=== PATIENT | male | born 1950 | race African-American/Black ===

== ENCOUNTER 2017-06-19 19:39 | Inpatient (IN) | payer OTHER ==
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
[2017-06-19] MEDS ORDERED: MAG HYDROX/AL HYDROX/SIMETH 30 ML UNIT-DOSE CUP PO PRN (20:30)
[2017-06-19] MEDS ORDERED: IBUPROFEN 400 MG TABLET (FP) PO PRN (20:30)
[2017-06-19] MEDS ORDERED: P-EPHED 60MG/TRIPROLIDI 2.5MG TABLET PO PRN (20:30)
[2017-06-19] MEDS ORDERED: chlordiazePOXIDE HCL 25 MG CAPSULE PO PRN (20:30)
[2017-06-19] MEDS ORDERED: ACETAMINOPHEN 325 MG TABLET (FP) PO PRN (20:30)
[2017-06-19] MEDS ORDERED: chlordiazePOXIDE HCL 25 MG CAPSULE PO ONE (20:30)
[2017-06-19] MEDS ORDERED: MAGNESIUM HYDROX 2400MG/30ML ORAL SUSPENSION 30 ML CUP PO PRN (20:30)
[2017-06-19] MEDS ORDERED: MENTHOL/PHENOL 1 EACH UD MM PRN (20:30)
[2017-06-19] MEDS ORDERED: MAGNESIUM CITRATE 300 ML BOTTLE PO PRN (20:30)
[2017-06-19] MEDS ORDERED: guaiFENesin/D-METHORPHAN HB 10 ML UNIT-DOSE CUPS PO PRN (20:30)
[2017-06-19] MEDS ORDERED: LOPERAMIDE HCL 2 MG CAPSULE PO PRN (20:30)
[2017-06-19] MEDS ORDERED: ALBUTEROL SO4 18 GM HFA INHALER IH PRN (20:38)
[2017-06-19] MEDS ORDERED: ALBUTEROL SO4 2.5/IPRATROPIUM 0.5 INH SOL 3 ML VIAL.NEB. NEB PRN (20:38)
[2017-06-19 20:40] VITALS: BMI 20.5
[2017-06-19] MEDS: THIAMINE HCL 100 MG TABLET (FP) PO SCH (23:11)
[2017-06-19] MEDS: chlordiazePOXIDE HCL 25 MG CAPSULE PO SCH (23:12)
[2017-06-20] MEDS: chlordiazePOXIDE HCL 25 MG CAPSULE PO SCH ×4 (05:08→22:13)
[2017-06-20] MEDS: amLODIPine BESYLATE 10 MG TABLET (FP) PO SCH (10:18)
[2017-06-20] MEDS: PRENATAL VITAMINS W/ FOLIC ACID TABLET (FP) PO SCH (10:18)
[2017-06-20] MEDS: NICOTINE 14 MG/24 HOURS TOPICAL PATCH TD SCH (10:18)
[2017-06-20 12:02] LABS: HEMATOCRIT 36.7 % (35.4-49); MCH 32.5 pg (25.7-33.7); MCHC 32.6 g/dl (32.0-35.9); MEAN CELL VOLUME 99.5 fl (80-96); MEAN PLT VOLUME 8.5 fl (7.5-11.1); PLATELET COUNT 156 K/MM3 (134-434); RBC 3.69 M/mm3 (4.00-5.60); RDW 13.9 % (11.9-15.9); WHITE BLOOD COUNT 5.1 K/mm3 (4.0-10.0)
[2017-06-20 12:16] LABS: ALBUMIN 2.8 g/dl (3.4-5.0); ANION GAP 11 (8-16); BLOOD UREA NITROGEN 29 mg/dL (7-18); CALCIUM 8.5 mg/dL (8.5-10.1); CHLORIDE 105 mmol/L (98-107); CO2 27 mmol/L (21-32); GLUCOSE,RANDOM 102 mg/dL (74-106); POTASSIUM 3.8 mmol/L (3.5-5.1); SGOT/AST 88 U/L (15-37); SGPT/ALT 60 U/L (12-78); SODIUM 143 mmol/L (136-145)
[2017-06-20 12:18] LABS: ALK PHOS 123 U/L (45-117); BILIRUBIN,TOTAL 0.6 mg/dL (0.2-1.0); CREATININE 1.4 mg/dL (0.7-1.3); TOT PROT 6.7 g/dl (6.4-8.2)
--- NOTE | 2017-06-20 12:42 | PN ---
[facility] CIWA - CIWA Score Nausea/Vomitin-No Nausea/No Vomiting Muscle Tremors: 4-Moderate,w/Arms Extend Anxiety: 4-Mod. Anxious/Guarded Agitation: 4-Moderately Restless Paroxysmal Sweats: 1-Minimal Palms Moist Orientation: 0-Oriented Tacttile Disturbances: 3-Moderate Itch/Numb/Burn Auditory Disturbances: 0-None Visual Disturbances: 0-None Headache: 0-None Present CIWA-Ar Total Score: 16 BHS Progress Note (SOAP) Subjective: ANXIETY,SWEATS,TREMORS,FATIGUE. Objective: 06/20/17 12:42 Vital Signs Temperature 98.3 F 06/20/17 09:20 Pulse Rate 85 06/20/17 09:20 Respiratory Rate 18 06/20/17 09:20 Blood Pressure 140/85 06/20/17 09:20 O2 Sat by Pulse Oximetry (%) Laboratory Last Values WBC 5.1 K/mm3 (4.0-10.0) D 06/20/17 07:50 RBC 3.69 M/mm3 (4.00-5.60) L 06/20/17 07:50 Hgb 12.0 GM/dL (11.7-16.9) 06/20/17 07:50 Hct 36.7 % (35.4-49) 06/20/17 07:50 MCV 99.5 fl (80-96) H 06/20/17 07:50 MCH 32.5 pg (25.7-33.7) 06/20/17 07:50 MCHC 32.6 g/dl (32.0-35.9) 06/20/17 07:50 RDW 13.9 % (11.9-15.9) 06/20/17 07:50 Plt Count 156 K/MM3 (134-434) D 06/20/17 07:50 MPV 8.5 fl (7.5-11.1) 06/20/17 07:50 Sodium 143 mmol/L (136-145) 06/20/17 07:50 Potassium 3.8 mmol/L (3.5-5.1) 06/20/17 07:50 Chloride 105 mmol/L (98-107) 06/20/17 07:50 Carbon Dioxide 27 mmol/L (21-32) 06/20/17 07:50 Anion Gap 11 (8-16) 06/20/17 07:50 BUN 29 mg/dL (7-18) H D 06/20/17 07:50 Creatinine 1.4 mg/dL (0.7-1.3) H D 06/20/17 07:50 Creat Clearance w eGFR 50.70 (>60) 06/20/17 07:50 Random Glucose 102 mg/dL (74-106) 06/20/17 07:50 Calcium 8.5 mg/dL (8.5-10.1) 06/20/17 07:50 Total Bilirubin 0.6 mg/dL (0.2-1.0) 06/20/17 07:50 AST 88 U/L (15-37) H D 06/20/17 07:50 ALT 60 U/L (12-78) D 06/20/17 07:50 Alkaline Phosphatase 123 U/L (45-117) H 06/20/17 07:50 Total Protein 6.7 g/dl (6.4-8.2) 06/20/17 07:50 Albumin 2.8 g/dl (3.4-5.0) L 06/20/17 07:50 Assessment: 06/20/17 12:42 WITHDRAWAL SX Plan: CONTINUE DETOX
--- NOTE | 2017-06-20 14:17 | EKG ---
Test Reason : Blood Pressure : / mmHG Vent. Rate : 098 BPM Atrial Rate : 098 BPM P-R Int : 108 ms QRS Dur : 084 ms QT Int : 390 ms P-R-T Axes : 059 007 092 degrees QTc Int : 497 ms SINUS RHYTHM WITH SHORT TX POSSIBLE LEFT ATRIAL ENLARGEMENT ABNORMAL QRS-T ANGLE, CONSIDER PRIMARY T WAVE ABNORMALITY PROLONGED QT ABNORMAL ECG NO PREVIOUS ECGS AVAILABLE CLINICAL CORRELATION IS RECOMMENDED Confirmed by DIPTI GARRETT, JOHAN ([id number]) on 06/20/2017 2:16:39 PM Referred By: Confirmed By:JOHAN RESENDEZ MD
--- NOTE | 2017-06-20 14:38 | CONSULT ---
[facility] Psychiatric Consult - Data Date of interview: 06/20/17 Admission source: [facility] Identifying data: Pt. is a 67 year old male, single, father of two, homeless and on SSI. This is patient's one of multiple admission to [facility]. Pt. admitted to for alcohol and heroin dependence. Substance Abuse History: Following information confirmed with Mr. Wood: - Smoking Cessation. Smoking history: Current every day smoker. Have you smoked in the past 12 months: Yes. Aproximately how many cigarettes per day: 4. Cigars Per Day: 0. Hx Chewing Tobacco Use: No. Initiated information on smoking cessation: Yes. 'Breaking Loose' booklet given: 06/19/17. - Substance & Tx. History. Hx Alcohol Use: Yes. Hx Substance Use: Yes. Substance Use Type : Alcohol, Cocaine. Hx Substance Use Treatment: Yes. - Substances Abused. Alcohol. Route: Oral. Frequency: Daily. Amount used: BEER 4 CANS/D. Age of first use: 16. Date of Last Use: 06/19/17. Cocaine. Route: Inhalation. Frequency: 3-6 times per week. Amount used: $20/EACH TIME. Age of first use: 17. Date of Last Use: 06/18/17 Medical History: Asthma, Hypertension, seizures (etoh related, had a seizure last year), Hep C, hx of chlamydia Psychiatric History: Pt. reports one psychiatric hospitalization at the age of 15-16 in [place] due to behavioral issues. States he was once diagnosed with schizophrenia but does not take psychiatric medications. Pt. reports 10+ years of incarceration for "peralta shit." Pt. denies a h/o suicide attempt. Physical/Sexual Abuse/Trauma History: Denies. Mental Status Exam - Mental Status Exam Alert and Oriented to: Time, Place, Person Cognitive Function: Good Patient Appearance: Unkempt Mood: Euthymic Affect: Mood Congruent Patient Behavior: Fatigued, Talkative, Cooperative Speech Pattern: Tangential Voice Loudness: Normal Thought Process: Goal Oriented Thought Disorder: Not Present Hallucinations: Denies Suicidal Ideation: Denies Homicidal Ideation: Denies Insight/Judgement: Poor Sleep: Fair Appetite: Poor Muscle strength/Tone: Normal Gait/Station: Other (Patient laying in bed throughout interview and therefore was not able to observe patient's gait.) Psychiatric Findings - Problem List ([place] 1, 2,3) (1) Alcohol dependence with uncomplicated withdrawal Current Visit: Yes Status: Acute (2) Cocaine dependence Current Visit: Yes Status: Acute Qualifiers: Complication of substance-induced condition: uncomplicated (3) Nicotine dependence Current Visit: Yes Status: Acute Qualifiers: Nicotine product type: cigarettes Substance use status: in withdrawal Qualified Code(s): F17.213 - Nicotine dependence, cigarettes, with withdrawal (4) Schizophrenia Current Visit: No Status: Suspected Comment: Self reports. - Initial Treatment Plan Initial Treatment Plan: Psychoeducation provided. Detoxification in progress. Pt. requesting trazodone for sleep but at this time trazodone will not be ordered due to prolong qtc of 497. Will continue to monitor.
[2017-06-20] MEDS: THIAMINE HCL 100 MG TABLET (FP) PO SCH (22:13)
[2017-06-20] MEDS: hydrOXYzine PAMOATE 25 MG CAPSULE (FP) PO PRN (22:14)
[2017-06-21] MEDS: chlordiazePOXIDE HCL 25 MG CAPSULE PO SCH ×3 (05:10→17:34)
[2017-06-21] MEDS: PRENATAL VITAMINS W/ FOLIC ACID TABLET (FP) PO SCH (10:07)
[2017-06-21] MEDS: amLODIPine BESYLATE 10 MG TABLET (FP) PO SCH (10:07)
[2017-06-21] MEDS: NICOTINE 14 MG/24 HOURS TOPICAL PATCH TD SCH (10:08)
--- NOTE | 2017-06-21 10:56 | PN ---
[facility] CIWA - CIWA Score Nausea/Vomitin-No Nausea/No Vomiting Muscle Tremors: 4-Moderate,w/Arms Extend Anxiety: 3 Agitation: 3 Paroxysmal Sweats: 3 Orientation: 0-Oriented Tacttile Disturbances: 2-Mild Itch/Numbness/Burn Auditory Disturbances: 1-Very Mild Visual Disturbances: 0-None Headache: 0-None Present CIWA-Ar Total Score: 16 S Progress Note (SOAP) Subjective: Constipation, Tremors, Fatigue, Sweating. Objective: PT. A & O X 3. NO ACUTE DISTRESS. 06/21/17 10:53 Vital Signs Temperature 98.2 F 06/21/17 09:40 Pulse Rate 103 H 06/21/17 09:40 Respiratory Rate 18 06/21/17 09:40 Blood Pressure 125/77 06/21/17 09:40 O2 Sat by Pulse Oximetry (%) Laboratory Tests 06/20/17 06/20/17 06/20/17 07:50 07:50 07:50 WBC 5.1 D RBC 3.69 L Hgb 12.0 Hct 36.7 MCV 99.5 H MCH 32.5 MCHC 32.6 RDW 13.9 Plt Count 156 D MPV 8.5 Sodium 143 Potassium 3.8 Chloride 105 Carbon Dioxide 27 Anion Gap 11 BUN 29 H D Creatinine 1.4 H D Creat Clearance w eGFR 50.70 Random Glucose 102 Calcium 8.5 Total Bilirubin 0.6 AST 88 H D ALT 60 D Alkaline Phosphatase 123 H Total Protein 6.7 Albumin 2.8 L RPR Titer Nonreactive LABS NOTED. Assessment: 06/21/17 10:53 WITHDRAWAL SYMPTOMS. Plan: CONTINUE DETOX. D/C MAGNESIUM-CONTAINING MEDS. AND IBUPROFEN. INCREASE DAILY PO FLUID INTAKE. BMP TOMORROW AM FOR ABNORMAL ADMISSION RENAL LAB VALUES.
[2017-06-21] MEDS: THIAMINE HCL 100 MG TABLET (FP) PO SCH (22:13)
[2017-06-21] MEDS: chlordiazePOXIDE 5 MG CAPSULE PO SCH (22:13)
[2017-06-21] MEDS: hydrOXYzine PAMOATE 25 MG CAPSULE (FP) PO PRN (22:13)
[2017-06-21] MEDS ORDERED: MAG HYDROX/AL HYDROX/SIMETH 30 ML UNIT-DOSE CUP PO ONE (23:30)
[2017-06-22] MEDS: chlordiazePOXIDE 5 MG CAPSULE PO SCH ×3 (06:02→17:19)
[2017-06-22 09:55] LABS: CHLORIDE 104 mmol/L (98-107); POTASSIUM 3.4 mmol/L (3.5-5.1); SODIUM 141 mmol/L (136-145)
[2017-06-22] MEDS: PRENATAL VITAMINS W/ FOLIC ACID TABLET (FP) PO SCH (10:12)
[2017-06-22] MEDS: NICOTINE 14 MG/24 HOURS TOPICAL PATCH TD SCH (10:14)
[2017-06-22] MEDS: amLODIPine BESYLATE 10 MG TABLET (FP) PO SCH (10:14)
[2017-06-22] MEDS ORDERED: TRIMETHOBENZAMIDE HCL 200MG/2ML INJ IM PRN (10:15)
[2017-06-22 10:16] LABS: ANION GAP 8 (8-16); BLOOD UREA NITROGEN 17 mg/dL (7-18); CALCIUM 8.8 mg/dL (8.5-10.1); CO2 29 mmol/L (21-32); CREATININE 0.6 mg/dL (0.7-1.3); GLUCOSE,RANDOM 97 mg/dL (74-106)
[2017-06-22] MEDS ORDERED: POTASSIUM CHLORIDE TABS 20 MEQ TABLET.ER (FP) PO ONE (11:42)
--- NOTE | 2017-06-22 11:44 | PN ---
S Progress Note (SOAP) Subjective: Nausea, Stomach Cramping, Fatigue, Sweating, Constipation. Objective: PT. A & O X 2 (UNCERTAIN ABOUT CURRENT DAY / DATE). PT. OBSERVED AMBULATING ON UNIT. NO ACUTE DISTRESS. 06/22/17 11:40 Vital Signs Temperature 97.2 F L 06/22/17 09:05 Pulse Rate 96 H 06/22/17 09:05 Respiratory Rate 20 06/22/17 09:05 Blood Pressure 117/75 06/22/17 09:05 O2 Sat by Pulse Oximetry (%) Laboratory Tests 06/20/17 06/20/17 06/20/17 07:50 07:50 07:50 WBC 5.1 D RBC 3.69 L Hgb 12.0 Hct 36.7 MCV 99.5 H MCH 32.5 MCHC 32.6 RDW 13.9 Plt Count 156 D MPV 8.5 Sodium 143 Potassium 3.8 Chloride 105 Carbon Dioxide 27 Anion Gap 11 BUN 29 H D Creatinine 1.4 H D Creat Clearance w eGFR 50.70 Random Glucose 102 Calcium 8.5 Total Bilirubin 0.6 AST 88 H D ALT 60 D Alkaline Phosphatase 123 H Total Protein 6.7 Albumin 2.8 L RPR Titer Nonreactive HIV 1&2 Antibody Screen HIV P24 Antigen 06/21/17 06/22/17 06:00 07:30 WBC RBC Hgb Hct MCV MCH MCHC RDW Plt Count MPV Sodium 141 Potassium 3.4 L Chloride 104 Carbon Dioxide 29 Anion Gap 8 BUN 17 D Creatinine 0.6 L D Creat Clearance w eGFR Random Glucose 97 Calcium 8.8 Total Bilirubin AST ALT Alkaline Phosphatase Total Protein Albumin RPR Titer HIV 1&2 Antibody Screen Negative HIV P24 Antigen Negative LABS NOTED. RESULTS OF BMP NOTED. 06/22/17 11:44 Assessment: 06/22/17 11:41 WITHDRAWAL SYMPTOMS. Plan: CONTINUE DETOX. K, 20 MEQ PO X 1 NOW, THEN 20 MEW PO BID AFTER. INCREASE DAILY PO FLUID INTAKE.
[2017-06-22] MEDS: POTASSIUM CHLORIDE TABS 20 MEQ TABLET.ER (FP) PO SCH (17:21)
[2017-06-22 19:01] LABS: URINE APPEARANCE CLEAR; URINE BILIRUBIN NEGATIVE (NEGATIVE); URINE BLOOD NEGATIVE (NEGATIVE); URINE COLOR YELLOW; URINE GLUCOSE (UA) 1+ (NEGATIVE); URINE KETONE NEGATIVE (NEGATIVE); URINE LEUK ESTERASE NEGATIVE (NEGATIVE); URINE NITRITE NEGATIVE (NEGATIVE); URINE PROTEIN NEGATIVE (NEGATIVE); URINE UROBILINOGEN 4.0 E.U/dl mg/dL (0.2-1.0)
[2017-06-22] MEDS: chlordiazePOXIDE HCL 10 MG CAPSULE PO SCH (22:07)
[2017-06-22] MEDS: THIAMINE HCL 100 MG TABLET (FP) PO SCH (22:07)
[2017-06-22] MEDS: hydrOXYzine PAMOATE 25 MG CAPSULE (FP) PO PRN (22:09)
[2017-06-23] MEDS: chlordiazePOXIDE HCL 10 MG CAPSULE PO SCH ×3 (05:11→17:31)
[2017-06-23] MEDS: POTASSIUM CHLORIDE TABS 20 MEQ TABLET.ER (FP) PO SCH ×2 (10:18→17:31)
[2017-06-23] MEDS: PRENATAL VITAMINS W/ FOLIC ACID TABLET (FP) PO SCH (10:19)
[2017-06-23] MEDS: NICOTINE 14 MG/24 HOURS TOPICAL PATCH TD SCH (10:19)
[2017-06-23] MEDS: amLODIPine BESYLATE 10 MG TABLET (FP) PO SCH (10:19)
--- NOTE | 2017-06-23 12:03 | PN ---
BHS Progress Note (SOAP) Subjective: Fatigue, Sweating. Objective: PT. A & O X 2 (UNCERTAIN ABOUT CURRENT DAY/ DATE). NO ACUTE DISTRESS. 06/23/17 12:00 Vital Signs Temperature 97.0 F L 06/23/17 08:47 Pulse Rate 98 H 06/23/17 08:47 Respiratory Rate 19 06/23/17 08:47 Blood Pressure 113/81 06/23/17 08:47 O2 Sat by Pulse Oximetry (%) Laboratory Tests 06/20/17 06/20/17 06/20/17 07:50 07:50 07:50 WBC 5.1 D RBC 3.69 L Hgb 12.0 Hct 36.7 MCV 99.5 H MCH 32.5 MCHC 32.6 RDW 13.9 Plt Count 156 D MPV 8.5 Sodium 143 Potassium 3.8 Chloride 105 Carbon Dioxide 27 Anion Gap 11 BUN 29 H D Creatinine 1.4 H D Creat Clearance w eGFR 50.70 Random Glucose 102 Calcium 8.5 Total Bilirubin 0.6 AST 88 H D ALT 60 D Alkaline Phosphatase 123 H Total Protein 6.7 Albumin 2.8 L Urine Color Urine Appearance Urine pH Ur Specific [place] Urine Protein Urine Glucose (UA) Urine Ketones Urine Blood Urine Nitrite Urine Bilirubin Urine Urobilinogen Ur Leukocyte Esterase RPR Titer Nonreactive HIV 1&2 Antibody Screen HIV P24 Antigen 06/21/17 06/22/17 06/22/17 06:00 07:30 15:54 WBC RBC Hgb Hct MCV MCH MCHC RDW Plt Count MPV Sodium 141 Potassium 3.4 L Chloride 104 Carbon Dioxide 29 Anion Gap 8 BUN 17 D Creatinine 0.6 L D Creat Clearance w eGFR Random Glucose 97 Calcium 8.8 Total Bilirubin AST ALT Alkaline Phosphatase Total Protein Albumin Urine Color Yellow Urine Appearance Clear Urine pH 7.0 Ur Specific [place] 1.016 Urine Protein Negative Urine Glucose (UA) 1+ H Urine Ketones Negative Urine Blood Negative Urine Nitrite Negative Urine Bilirubin Negative Urine Urobilinogen 4.0 e.u/dl Ur Leukocyte Esterase Negative RPR Titer HIV 1&2 Antibody Screen Negative HIV P24 Antigen Negative LABS NOTED. Assessment: 06/23/17 12:01 WITHDRAWAL SYMPTOMS. Plan: CONTINUE DETOX. DUE TO SEVERELY INCLEMENT WEATHER OUTSIDE, PATIENT TO REMAIN ON UNIT WHILE AFTERCARE PLANS ARE DETERMINED UNTIL TOMORROW.
[2017-06-23] MEDS: THIAMINE HCL 100 MG TABLET (FP) PO SCH (22:09)
[2017-06-23] MEDS: hydrOXYzine PAMOATE 25 MG CAPSULE (FP) PO PRN (22:10)
[2017-06-24] MEDS: NICOTINE 14 MG/24 HOURS TOPICAL PATCH TD SCH (09:16)
[2017-06-24] MEDS: PRENATAL VITAMINS W/ FOLIC ACID TABLET (FP) PO SCH (09:16)
[2017-06-24] MEDS: amLODIPine BESYLATE 10 MG TABLET (FP) PO SCH (09:16)
[2017-06-24] MEDS: POTASSIUM CHLORIDE TABS 20 MEQ TABLET.ER (FP) PO SCH (09:17)
[2017-06-24 09:18] VITALS: BP 128/71; PULSE 100; TEMP 97.4
[2017-06-24] MEDS ORDERED: MAG HYDROX/AL HYDROX/SIMETH 30 ML UNIT-DOSE CUP PO ONE (09:31)
--- NOTE | 2017-06-24 10:48 | DS ---
[facility] Detox Discharge Summary Admission Date: 06/19/17 - History Present History: Alcohol Dependence Additional Comments: DETOX COMPLETED. PT HAS A PMD LOCATED ON [place], [place].. DOES NOT REMEMBER HER NAME. WILL FOLLOW UP WITH MEDICAL MANAGEMENT WITH PMD NEEDED. Pertinent Past History: SEE DX BELOW - Physical Exam Results Vital Signs: Vital Signs Temperature 97.4 F L 06/24/17 09:18 Pulse Rate 100 H 06/24/17 09:18 Respiratory Rate 20 06/24/17 09:18 Blood Pressure 128/71 06/24/17 09:18 O2 Sat by Pulse Oximetry (%) Pertinent Admission Physical Exam Findings: WITHDRAWAL SX Laboratory Last Values WBC 5.1 K/mm3 (4.0-10.0) D 06/20/17 07:50 RBC 3.69 M/mm3 (4.00-5.60) L 06/20/17 07:50 Hgb 12.0 GM/dL (11.7-16.9) 06/20/17 07:50 Hct 36.7 % (35.4-49) 06/20/17 07:50 MCV 99.5 fl (80-96) H 06/20/17 07:50 MCH 32.5 pg (25.7-33.7) 06/20/17 07:50 MCHC 32.6 g/dl (32.0-35.9) 06/20/17 07:50 RDW 13.9 % (11.9-15.9) 06/20/17 07:50 Plt Count 156 K/MM3 (134-434) D 06/20/17 07:50 MPV 8.5 fl (7.5-11.1) 06/20/17 07:50 Sodium 141 mmol/L (136-145) 06/22/17 07:30 Potassium 3.4 mmol/L (3.5-5.1) L 06/22/17 07:30 Chloride 104 mmol/L (98-107) 06/22/17 07:30 Carbon Dioxide 29 mmol/L (21-32) 06/22/17 07:30 Anion Gap 8 (8-16) 06/22/17 07:30 BUN 17 mg/dL (7-18) D 06/22/17 07:30 Creatinine 0.6 mg/dL (0.7-1.3) L D 06/22/17 07:30 Creat Clearance w eGFR 50.70 (>60) 06/20/17 07:50 Random Glucose 97 mg/dL (74-106) 06/22/17 07:30 Calcium 8.8 mg/dL (8.5-10.1) 06/22/17 07:30 Total Bilirubin 0.6 mg/dL (0.2-1.0) 06/20/17 07:50 AST 88 U/L (15-37) H D 06/20/17 07:50 ALT 60 U/L (12-78) D 06/20/17 07:50 Alkaline Phosphatase 123 U/L (45-117) H 06/20/17 07:50 Total Protein 6.7 g/dl (6.4-8.2) 06/20/17 07:50 Albumin 2.8 g/dl (3.4-5.0) L 06/20/17 07:50 Urine Color Yellow 06/22/17 15:54 Urine Appearance Clear 06/22/17 15:54 Urine pH 7.0 (5.0-8.0) 06/22/17 15:54 Ur Specific [place] 1.016 (1.001-1.035) 06/22/17 15:54 Urine Protein Negative (NEGATIVE) 06/22/17 15:54 Urine Glucose (UA) 1+ (NEGATIVE) H 06/22/17 15:54 Urine Ketones Negative (NEGATIVE) 06/22/17 15:54 Urine Blood Negative (NEGATIVE) 06/22/17 15:54 Urine Nitrite Negative (NEGATIVE) 06/22/17 15:54 Urine Bilirubin Negative (NEGATIVE) 06/22/17 15:54 Urine Urobilinogen 4.0 e.u/dl mg/dL (0.2-1.0) 06/22/17 15:54 Ur Leukocyte Esterase Negative (NEGATIVE) 06/22/17 15:54 RPR Titer Nonreactive (NONREACTIVE) 06/20/17 07:50 HIV 1&2 Antibody Screen Negative 06/21/17 06:00 HIV P24 Antigen Negative 06/21/17 06:00 - Treatment Hospital Course: Detox Protocol Followed, Detoxed Safely, Responded well, Discharged Condition Good - Medication Discharge Medications: Ambulatory Orders Budesonide/Formeterol Fumarate [SYMBICORT 80/4.5mcg -] 2 inh IH BID #1 inhaler 07/26/16 Trazodone HCl [Desyrel -] 100 mg PO HS #30 tablet 07/26/16 Albuterol Sulfate Inhaler - [Ventolin HFA Inhaler -] 2 inh IH Q4H PRN #1 inhaler 06/23/17 Amlodipine Besylate [Norvasc -] 2.5 mg PO DAILY #30 tablet 06/23/17 - Diagnosis (1) Asthma Current Visit: Yes Status: Chronic Qualifiers: Asthma severity: mild Asthma persistence: intermittent Asthma complication type: unspecified Qualified Code(s): J45.20 - Mild intermittent asthma, uncomplicated (2) Alcohol dependence with uncomplicated withdrawal Current Visit: Yes Status: Acute (3) Cocaine dependence Current Visit: Yes Status: Acute Qualifiers: Substance use status: uncomplicated Qualified Code(s): F14.20 - Cocaine dependence, uncomplicated (4) Essential hypertension Current Visit: Yes Status: Chronic (5) Nicotine dependence Current Visit: Yes Status: Acute Qualifiers: Nicotine product type: cigarettes Substance use status: in withdrawal Qualified Code(s): F17.213 - Nicotine dependence, cigarettes, with withdrawal (6) Status post right hip replacement Current Visit: Yes Status: Chronic (7) Weight loss Current Visit: Yes Status: Acute (8) Seizure Current Visit: Yes Status: Suspected (9) History of hepatitis C Current Visit: Yes Status: Chronic - AMA Did Patient Leave Against Medical Advice: No
== END 2017-06-24 11:42 | disposition home or self-care (01) | DRG 897 ==
LOC: YASAS 19:39 → Y3N 20:24
PROVIDERS: ADMIT Internal Medicine; ATTEND Internal Medicine
PROC: HZ2ZZZZ Detoxification Services for Substance Abuse Treatment (ICD-10-PCS; principal; 2017-06-19)
DX: F10.230 Alcohol dependence with withdrawal, uncomplicated (principal); F14.20 Cocaine dependence, uncomplicated; F17.213 Nicotine dependence, cigarettes, with withdrawal; F20.9 Schizophrenia, unspecified; I10 Essential (primary) hypertension; J45.20 Mild intermittent asthma, uncomplicated; B18.2 Chronic viral hepatitis C; R63.4 Abnormal weight loss; Z68.20 Body mass index [BMI] 20.0-20.9, adult; Z86.69 Personal history of other diseases of the nervous system and sense organs; Z87.438 Personal history of other diseases of male genital organs; Z96.641 Presence of right artificial hip joint
CPT/HCPCS: 36415; 80048; 80053; 81003; 85027; 86593; 87389; 93005; 93010

== ENCOUNTER 2017-07-17 11:43 | Inpatient (IN) | payer OTHER ==
[2017-07-17 12:41] VITALS: BMI 20.7
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
[2017-07-17] MEDS ORDERED: P-EPHED 60MG/TRIPROLIDI 2.5MG TABLET PO PRN (13:24)
[2017-07-17] MEDS ORDERED: IBUPROFEN 400 MG TABLET (FP) PO PRN (13:24)
[2017-07-17] MEDS ORDERED: chlordiazePOXIDE HCL 25 MG CAPSULE PO ONE (13:24)
[2017-07-17] MEDS ORDERED: ACETAMINOPHEN 325 MG TABLET (FP) PO PRN (13:24)
[2017-07-17] MEDS ORDERED: guaiFENesin/D-METHORPHAN HB 10 ML UNIT-DOSE CUPS PO PRN (13:24)
[2017-07-17] MEDS ORDERED: MAGNESIUM HYDROX 2400MG/30ML ORAL SUSPENSION 30 ML CUP PO PRN (13:24)
[2017-07-17] MEDS ORDERED: MAGNESIUM CITRATE 300 ML BOTTLE PO PRN (13:24)
[2017-07-17] MEDS ORDERED: chlordiazePOXIDE HCL 25 MG CAPSULE PO PRN (13:24)
[2017-07-17] MEDS ORDERED: LOPERAMIDE HCL 2 MG CAPSULE PO PRN (13:24)
[2017-07-17] MEDS ORDERED: MENTHOL/PHENOL 1 EACH UD MM PRN (13:24)
[2017-07-17] MEDS ORDERED: NICOTINE POLACRILEX 2 MG GUM BUC PRN (13:24)
[2017-07-17] MEDS ORDERED: MAG HYDROX/AL HYDROX/SIMETH 30 ML UNIT-DOSE CUP PO PRN (13:24)
[2017-07-17] MEDS ORDERED: ALBUTEROL SO4 18 GM HFA INHALER IH PRN (13:27)
[2017-07-17] MEDS: amLODIPine BESYLATE 2.5 MG TABLET (FP) PO SCH (14:34)
[2017-07-17] MEDS: BUDESONIDE/FORMETEROL FUMARATE 80/4.5 mcg INHALER IH SCH ×2 (14:34→22:13)
[2017-07-17] MEDS: NICOTINE 14 MG/24 HOURS TOPICAL PATCH TD SCH (14:34)
[2017-07-17] MEDS: chlordiazePOXIDE HCL 25 MG CAPSULE PO SCH ×2 (17:34→22:12)
[2017-07-17] MEDS: THIAMINE HCL 100 MG TABLET (FP) PO SCH (22:12)
[2017-07-17 22:31] LABS: URINE APPEARANCE CLEAR; URINE BILIRUBIN NEGATIVE (NEGATIVE); URINE BLOOD NEGATIVE (NEGATIVE); URINE COLOR YELLOW; URINE GLUCOSE (UA) NEGATIVE (NEGATIVE); URINE KETONE NEGATIVE (NEGATIVE); URINE LEUK ESTERASE NEGATIVE (NEGATIVE); URINE NITRITE NEGATIVE (NEGATIVE); URINE PROTEIN NEGATIVE (NEGATIVE); URINE UROBILINOGEN 4.0 E.U/dl mg/dL (0.2-1.0)
[2017-07-18] MEDS: chlordiazePOXIDE HCL 25 MG CAPSULE PO SCH ×4 (05:33→22:23)
[2017-07-18] MEDS: PRENATAL VITAMINS W/ FOLIC ACID TABLET (FP) PO SCH (10:03)
[2017-07-18] MEDS: BUDESONIDE/FORMETEROL FUMARATE 80/4.5 mcg INHALER IH SCH ×2 (10:04→22:23)
[2017-07-18] MEDS: NICOTINE 14 MG/24 HOURS TOPICAL PATCH TD SCH (10:04)
[2017-07-18 10:09] LABS: HEMATOCRIT 38.4 % (35.4-49); HEMOGLOBIN 12.5 GM/dL (11.7-16.9); MCH 32.3 pg (25.7-33.7); MCHC 32.7 g/dl (32.0-35.9); MEAN CELL VOLUME 98.8 fl (80-96); MEAN PLT VOLUME 8.1 fl (7.5-11.1); PLATELET COUNT 173 K/MM3 (134-434); RBC 3.88 M/mm3 (4.00-5.60); RDW 14.9 % (11.9-15.9)
[2017-07-18 10:41] LABS: CHLORIDE 104 mmol/L (98-107); POTASSIUM 3.5 mmol/L (3.5-5.1); SODIUM 140 mmol/L (136-145)
[2017-07-18] MEDS: AMMONIUM LACTATE 12% LOTION 225 GM BOTTLE TP SCH ×2 (11:00→22:23)
[2017-07-18] MEDS: amLODIPine BESYLATE 2.5 MG TABLET (FP) PO SCH (11:01)
[2017-07-18 11:03] LABS: ALBUMIN 2.6 g/dl (3.4-5.0); ALK PHOS 125 U/L (45-117); ANION GAP 8 (8-16); BILIRUBIN,TOTAL 0.7 mg/dL (0.2-1.0); BLOOD UREA NITROGEN 14 mg/dL (7-18); CALCIUM 7.8 mg/dL (8.5-10.1); CO2 28 mmol/L (21-32); CREATININE 0.8 mg/dL (0.7-1.3); GLUCOSE,RANDOM 151 mg/dL (74-106); SGOT/AST 75 U/L (15-37); SGPT/ALT 52 U/L (12-78); TOT PROT 6.7 g/dl (6.4-8.2)
--- NOTE | 2017-07-18 11:56 | PN ---
[facility] CIWA - CIWA Score Nausea/Vomitin-No Nausea/No Vomiting Muscle Tremors: 3 Anxiety: 4-Mod. Anxious/Guarded Agitation: 2 Paroxysmal Sweats: 3 Orientation: 0-Oriented Tacttile Disturbances: 2-Mild Itch/Numbness/Burn Auditory Disturbances: 2-Mild Harshness/Frighten Visual Disturbances: 2-Mild Sensitivity Headache: 0-None Present CIWA-Ar Total Score: 18 S Progress Note (SOAP) Subjective: Fatigue, Tremors, Sweating. Objective: PT. A & O X 3, OBSERVED AMBULATING ON UNIT. NO ACUTE DISTRESS. 07/18/17 11:52 Vital Signs Temperature 97.1 F L 07/18/17 09:26 Pulse Rate 95 H 07/18/17 09:26 Respiratory Rate 20 07/18/17 09:26 Blood Pressure 130/91 07/18/17 09:26 O2 Sat by Pulse Oximetry (%) Laboratory Tests 07/17/17 07/18/17 07/18/17 15:18 07:30 07:30 WBC 5.0 RBC 3.88 L Hgb 12.5 Hct 38.4 MCV 98.8 H MCH 32.3 MCHC 32.7 RDW 14.9 Plt Count 173 MPV 8.1 Sodium 140 Potassium 3.5 Chloride 104 Carbon Dioxide 28 Anion Gap 8 BUN 14 Creatinine 0.8 D Creat Clearance w eGFR > 60 Random Glucose 151 H D Calcium 7.8 L Total Bilirubin 0.7 AST 75 H ALT 52 Alkaline Phosphatase 125 H Total Protein 6.7 Albumin 2.6 L Urine Color Yellow Urine Appearance Clear Urine pH 6.0 Ur Specific [place] 1.011 Urine Protein Negative Urine Glucose (UA) Negative Urine Ketones Negative Urine Blood Negative Urine Nitrite Negative Urine Bilirubin Negative Urine Urobilinogen 4.0 e.u/dl Ur Leukocyte Esterase Negative RPR Titer 07/18/17 07:30 WBC RBC Hgb Hct MCV MCH MCHC RDW Plt Count MPV Sodium Potassium Chloride Carbon Dioxide Anion Gap BUN Creatinine Creat Clearance w eGFR Random Glucose Calcium Total Bilirubin AST ALT Alkaline Phosphatase Total Protein Albumin Urine Color Urine Appearance Urine pH Ur Specific [place] Urine Protein Urine Glucose (UA) Urine Ketones Urine Blood Urine Nitrite Urine Bilirubin Urine Urobilinogen Ur Leukocyte Esterase RPR Titer Nonreactive LABS NOTED. Assessment: 07/18/17 11:53 WITHDRAWAL SYMPTOMS. Plan: CONTINUE DETOX. BGM ACBK FOR ELEVATED ADMISSION RANDOM GLUCOSE LEVEL. INCREASE DAILY PO FLUID INTAKE.
--- NOTE | 2017-07-18 13:10 | EKG ---
Test Reason : Blood Pressure : / mmHG Vent. Rate : 088 BPM Atrial Rate : 088 BPM P-R Int : 106 ms QRS Dur : 092 ms QT Int : 380 ms P-R-T Axes : 057 018 031 degrees QTc Int : 459 ms SINUS RHYTHM WITH SHORT [place] OTHERWISE NORMAL ECG WHEN COMPARED WITH ECG OF 19-JUN-2017 23:00, T WAVE VARIATION Confirmed by DEION BAEZ MD ([id number]) on 07/18/2017 1:09:50 PM Referred By: oGrdon Mehta Confirmed By:DEION BAEZ MD
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
[2017-07-18] MEDS: THIAMINE HCL 100 MG TABLET (FP) PO SCH (22:24)
[2017-07-19] MEDS: chlordiazePOXIDE HCL 25 MG CAPSULE PO SCH ×2 (05:05→10:03)
[2017-07-19] MEDS: amLODIPine BESYLATE 2.5 MG TABLET (FP) PO SCH (10:02)
[2017-07-19] MEDS: PRENATAL VITAMINS W/ FOLIC ACID TABLET (FP) PO SCH (10:02)
[2017-07-19] MEDS: AMMONIUM LACTATE 12% LOTION 225 GM BOTTLE TP SCH ×2 (10:02→22:24)
[2017-07-19] MEDS: NICOTINE 14 MG/24 HOURS TOPICAL PATCH TD SCH (10:02)
[2017-07-19] MEDS: BUDESONIDE/FORMETEROL FUMARATE 80/4.5 mcg INHALER IH SCH ×2 (10:03→22:24)
--- NOTE | 2017-07-19 12:12 | PN ---
[facility] CIWA - CIWA Score Nausea/Vomitin-No Nausea/No Vomiting Muscle Tremors: None Anxiety: 4-Mod. Anxious/Guarded Agitation: 4-Moderately Restless Paroxysmal Sweats: No Perspiration Orientation: 0-Oriented Tacttile Disturbances: 2-Mild Itch/Numbness/Burn Auditory Disturbances: 1-Very Mild Visual Disturbances: 3-Moderate Sensitivity Headache: 0-None Present CIWA-Ar Total Score: 14 [facility] Progress Note (SOAP) Subjective: Anxious, Stomach Cramping, Fatigue, Constipation. Objective: PT. A & O X 3, OBSERVED AMBULATING ON UNIT. NO ACUTE DISTRESS. PT. DENIES CHEST PAIN. 07/19/17 12:11 Vital Signs Temperature 96.3 F L 07/19/17 09:15 Pulse Rate 92 H 07/19/17 09:15 Respiratory Rate 18 07/19/17 09:15 Blood Pressure 140/88 07/19/17 09:15 O2 Sat by Pulse Oximetry (%) Laboratory Tests 07/17/17 07/18/17 07/18/17 15:18 07:30 07:30 WBC 5.0 RBC 3.88 L Hgb 12.5 Hct 38.4 MCV 98.8 H MCH 32.3 MCHC 32.7 RDW 14.9 Plt Count 173 MPV 8.1 Sodium 140 Potassium 3.5 Chloride 104 Carbon Dioxide 28 Anion Gap 8 BUN 14 Creatinine 0.8 D Creat Clearance w eGFR > 60 POC Glucometer Random Glucose 151 H D Calcium 7.8 L Total Bilirubin 0.7 AST 75 H ALT 52 Alkaline Phosphatase 125 H Total Protein 6.7 Albumin 2.6 L Urine Color Yellow Urine Appearance Clear Urine pH 6.0 Ur Specific [place] 1.011 Urine Protein Negative Urine Glucose (UA) Negative Urine Ketones Negative Urine Blood Negative Urine Nitrite Negative Urine Bilirubin Negative Urine Urobilinogen 4.0 e.u/dl Ur Leukocyte Esterase Negative RPR Titer 07/18/17 07/19/17 07:30 05:04 WBC RBC Hgb Hct MCV MCH MCHC RDW Plt Count MPV Sodium Potassium Chloride Carbon Dioxide Anion Gap BUN Creatinine Creat Clearance w eGFR POC Glucometer 127 Random Glucose Calcium Total Bilirubin AST ALT Alkaline Phosphatase Total Protein Albumin Urine Color Urine Appearance Urine pH Ur Specific [place] Urine Protein Urine Glucose (UA) Urine Ketones Urine Blood Urine Nitrite Urine Bilirubin Urine Urobilinogen Ur Leukocyte Esterase RPR Titer Nonreactive LABS NOTED. 01/30/18 12:12 Assessment: 07/19/17 12:11 WITHDRAWAL SYMPTOMS. Plan: CONTINUE DETOX. INCREASE DAILY PO FLUID INTAKE.
[2017-07-19] MEDS: chlordiazePOXIDE 5 MG CAPSULE PO SCH ×2 (17:14→22:25)
[2017-07-19] MEDS: THIAMINE HCL 100 MG TABLET (FP) PO SCH (22:26)
[2017-07-20] MEDS: chlordiazePOXIDE 5 MG CAPSULE PO SCH ×2 (04:59→10:17)
[2017-07-20] MEDS: PRENATAL VITAMINS W/ FOLIC ACID TABLET (FP) PO SCH (10:17)
[2017-07-20] MEDS: BUDESONIDE/FORMETEROL FUMARATE 80/4.5 mcg INHALER IH SCH ×2 (10:17→22:14)
[2017-07-20] MEDS: amLODIPine BESYLATE 2.5 MG TABLET (FP) PO SCH (10:17)
[2017-07-20] MEDS: NICOTINE 14 MG/24 HOURS TOPICAL PATCH TD SCH (10:18)
[2017-07-20] MEDS: AMMONIUM LACTATE 12% LOTION 225 GM BOTTLE TP SCH ×2 (10:18→22:16)
--- NOTE | 2017-07-20 11:05 | PN ---
[facility] Progress Note (SOAP) Subjective: Fatigue, Anxious. Objective: PT. A & O X 3, OBSERVED AMBULATING ON UNIT. NO ACUTE DISTRESS. 07/20/17 10:59 Vital Signs Temperature 96.7 F L 07/20/17 09:12 Pulse Rate 95 H 07/20/17 09:12 Respiratory Rate 18 07/20/17 09:12 Blood Pressure 127/83 07/20/17 09:12 O2 Sat by Pulse Oximetry (%) Laboratory Tests 07/17/17 07/18/17 07/18/17 15:18 07:30 07:30 WBC 5.0 RBC 3.88 L Hgb 12.5 Hct 38.4 MCV 98.8 H MCH 32.3 MCHC 32.7 RDW 14.9 Plt Count 173 MPV 8.1 Sodium 140 Potassium 3.5 Chloride 104 Carbon Dioxide 28 Anion Gap 8 BUN 14 Creatinine 0.8 D Creat Clearance w eGFR > 60 POC Glucometer Random Glucose 151 H D Calcium 7.8 L Total Bilirubin 0.7 AST 75 H ALT 52 Alkaline Phosphatase 125 H Total Protein 6.7 Albumin 2.6 L Urine Color Yellow Urine Appearance Clear Urine pH 6.0 Ur Specific [place] 1.011 Urine Protein Negative Urine Glucose (UA) Negative Urine Ketones Negative Urine Blood Negative Urine Nitrite Negative Urine Bilirubin Negative Urine Urobilinogen 4.0 e.u/dl Ur Leukocyte Esterase Negative RPR Titer 07/18/17 07/19/17 07:30 05:04 WBC RBC Hgb Hct MCV MCH MCHC RDW Plt Count MPV Sodium Potassium Chloride Carbon Dioxide Anion Gap BUN Creatinine Creat Clearance w eGFR POC Glucometer 127 Random Glucose Calcium Total Bilirubin AST ALT Alkaline Phosphatase Total Protein Albumin Urine Color Urine Appearance Urine pH Ur Specific [place] Urine Protein Urine Glucose (UA) Urine Ketones Urine Blood Urine Nitrite Urine Bilirubin Urine Urobilinogen Ur Leukocyte Esterase RPR Titer Nonreactive LABS NOTED. Assessment: 07/20/17 11:01 WITHDRAWAL SYMPTOMS. Plan: CONTINUE DETOX.
[2017-07-20] MEDS: chlordiazePOXIDE HCL 10 MG CAPSULE PO SCH ×2 (17:26→22:14)
[2017-07-20] MEDS: THIAMINE HCL 100 MG TABLET (FP) PO SCH (22:14)
[2017-07-20 22:16] VITALS: BP 128/83; PULSE 99; TEMP 97.1
[2017-07-21] MEDS: chlordiazePOXIDE HCL 10 MG CAPSULE PO SCH (05:03)
--- NOTE | 2017-07-21 19:12 | DS ---
[facility] Detox Discharge Summary Admission Date: 07/17/17 Discharge Date: 07/21/17 - History Present History: Alcohol Dependence, Cocaine Dependence Additional Comments: PATIENT GOING TO [facility] ([facility]) FOR AFTERCARE. PATIENT WAS DISCHARGED FROM DETOX UNIT IN STABLE MEDICAL CONDITION. Pertinent Past History: HTN, Hypercholesterolemia, Schizophrenia,Depression, Hep C, Asthma, History of Seizures, Nicotine Dependence. - Physical Exam Results Vital Signs: Vital Signs Temperature 97.1 F L 07/20/17 22:16 Pulse Rate 99 H 07/20/17 22:16 Respiratory Rate 18 07/21/17 00:30 Blood Pressure 128/83 07/20/17 22:16 O2 Sat by Pulse Oximetry (%) Pertinent Admission Physical Exam Findings: WITHDRAWAL SYMPTOMS. Laboratory Tests 07/17/17 07/18/17 07/18/17 15:18 07:30 07:30 WBC 5.0 RBC 3.88 L Hgb 12.5 Hct 38.4 MCV 98.8 H MCH 32.3 MCHC 32.7 RDW 14.9 Plt Count 173 MPV 8.1 Sodium 140 Potassium 3.5 Chloride 104 Carbon Dioxide 28 Anion Gap 8 BUN 14 Creatinine 0.8 D Creat Clearance w eGFR > 60 POC Glucometer Random Glucose 151 H D Calcium 7.8 L Total Bilirubin 0.7 AST 75 H ALT 52 Alkaline Phosphatase 125 H Total Protein 6.7 Albumin 2.6 L Urine Color Yellow Urine Appearance Clear Urine pH 6.0 Ur Specific [place] 1.011 Urine Protein Negative Urine Glucose (UA) Negative Urine Ketones Negative Urine Blood Negative Urine Nitrite Negative Urine Bilirubin Negative Urine Urobilinogen 4.0 e.u/dl Ur Leukocyte Esterase Negative RPR Titer 07/18/17 07/19/17 07:30 05:04 WBC RBC Hgb Hct MCV MCH MCHC RDW Plt Count MPV Sodium Potassium Chloride Carbon Dioxide Anion Gap BUN Creatinine Creat Clearance w eGFR POC Glucometer 127 Random Glucose Calcium Total Bilirubin AST ALT Alkaline Phosphatase Total Protein Albumin Urine Color Urine Appearance Urine pH Ur Specific [place] Urine Protein Urine Glucose (UA) Urine Ketones Urine Blood Urine Nitrite Urine Bilirubin Urine Urobilinogen Ur Leukocyte Esterase RPR Titer Nonreactive LABS NOTED. - Treatment Hospital Course: Detox Protocol Followed, Detoxed Safely, Responded well, Discharged Condition Good Patient has Accepted a Rehab Referral to: PT. GOING TO [facility] ([facility]) FOR AFTERCARE. - Medication Discharge Medications: Ambulatory Orders Budesonide/Formeterol Fumarate [SYMBICORT 80/4.5mcg -] 2 inh IH BID #1 inhaler 07/26/16 Trazodone HCl [Desyrel -] 100 mg PO HS #30 tablet 07/26/16 Albuterol Sulfate Inhaler - [Ventolin HFA Inhaler -] 2 inh IH Q4H PRN #1 inhaler 06/23/17 Amlodipine Besylate [Norvasc -] 2.5 mg PO DAILY #30 tablet 07/20/17 - Diagnosis (1) Alcohol dependence with uncomplicated withdrawal Status: Acute (2) Cocaine dependence Status: Acute Qualifiers: Substance use status: uncomplicated Qualified Code(s): F14.20 - Cocaine dependence, uncomplicated (3) Asthma Status: Chronic Qualifiers: Asthma severity: mild Asthma persistence: intermittent Asthma complication type: unspecified Qualified Code(s): J45.20 - Mild intermittent asthma, uncomplicated (4) Essential hypertension Status: Chronic (5) Schizophrenia Status: Chronic Qualifiers: Schizophrenia type: unspecified Qualified Code(s): F20.9 - Schizophrenia, unspecified (6) Nicotine dependence Status: Acute Qualifiers: Nicotine product type: cigarettes Substance use status: in withdrawal Qualified Code(s): F17.213 - Nicotine dependence, cigarettes, with withdrawal - AMA Did Patient Leave Against Medical Advice: No
== END 2017-07-21 06:00 | disposition home or self-care (01) | DRG 897 ==
LOC: YASAS 11:43 → Y3N 13:12
PROVIDERS: ADMIT Internal Medicine; ATTEND Internal Medicine
PROC: HZ2ZZZZ Detoxification Services for Substance Abuse Treatment (ICD-10-PCS; principal; 2017-07-17)
DX: F10.230 Alcohol dependence with withdrawal, uncomplicated (principal); F14.20 Cocaine dependence, uncomplicated; F17.213 Nicotine dependence, cigarettes, with withdrawal; F32.9 Major depressive disorder, single episode, unspecified; F20.9 Schizophrenia, unspecified; G40.909 Epilepsy, unspecified, not intractable, without status epilepticus; B18.2 Chronic viral hepatitis C; I10 Essential (primary) hypertension; J45.20 Mild intermittent asthma, uncomplicated; Z91.5 Personal history of self-harm; Z87.438 Personal history of other diseases of male genital organs
CPT/HCPCS: 36415; 71046-TC; 80053; 81003; 82962; 85027; 86593; 93005; 93010

== ENCOUNTER 2017-11-04 15:51 | Inpatient (IN) | payer OTHER ==
[2017-11-04 18:58] VITALS: BMI 21.2
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
[2017-11-04] MEDS ORDERED: MELATONIN 5 MG TABLETS PO PRN (22:00)
[2017-11-04] MEDS ORDERED: MAG HYDROX/AL HYDROX/SIMETH 30 ML UNIT-DOSE CUP PO PRN (22:14)
[2017-11-04] MEDS ORDERED: MAGNESIUM CITRATE 300 ML BOTTLE PO PRN (22:14)
[2017-11-04] MEDS ORDERED: LOPERAMIDE HCL 2 MG CAPSULE PO PRN (22:14)
[2017-11-04] MEDS ORDERED: IBUPROFEN 400 MG TABLET (FP) PO PRN (22:14)
[2017-11-04] MEDS ORDERED: guaiFENesin/D-METHORPHAN HB 10 ML UNIT-DOSE CUPS PO PRN (22:14)
[2017-11-04] MEDS ORDERED: hydrOXYzine PAMOATE 50 MG CAPSULE (FP) PO PRN (22:14)
[2017-11-04] MEDS ORDERED: MAGNESIUM HYDROX 2400MG/30ML ORAL SUSPENSION 30 ML CUP PO PRN (22:14)
[2017-11-04] MEDS ORDERED: NICOTINE POLACRILEX 2 MG GUM BC PRN (22:14)
[2017-11-04] MEDS ORDERED: chlordiazePOXIDE HCL 25 MG CAPSULE PO PRN (22:14)
[2017-11-04] MEDS ORDERED: P-EPHED 60MG/TRIPROLIDI 2.5MG TABLET PO PRN (22:14)
[2017-11-04] MEDS ORDERED: MENTHOL/PHENOL 1 EACH UD MM PRN (22:14)
[2017-11-04] MEDS ORDERED: ACETAMINOPHEN 325 MG TABLET (FP) PO PRN (22:14)
[2017-11-04] MEDS: chlordiazePOXIDE HCL 25 MG CAPSULE PO SCH (23:30)
[2017-11-04] MEDS ORDERED: cloNIDine HCL 0.1 MG TABLET PO ONE (23:30)
--- NOTE | 2017-11-04 23:32 | PN ---
S Progress Note Note: Patient B/P elevated. Alert. No neuro changes. Vital Signs - 24 hr 11/04/17 11/04/17 18:55 23:10 Temperature 98.7 F 96.9 F L Pulse Rate 101 H 72 Respiratory 18 20 Rate Blood Pressure 129/82 194/90 Give stat dose of clonidine. Change order for amlodipine from 2.5 mg to 5 mg daily
[2017-11-05 01:15] LABS: URINE APPEARANCE CLEAR; URINE BILIRUBIN NEGATIVE (<2.0 mg/dL); URINE BLOOD NEGATIVE (NEGATIVE); URINE COLOR YELLOW; URINE GLUCOSE (UA) NEGATIVE (NEGATIVE); URINE KETONE NEGATIVE (NEGATIVE); URINE LEUK ESTERASE NEGATIVE (NEGATIVE); URINE NITRITE NEGATIVE (NEGATIVE); URINE PROTEIN NEGATIVE (NEGATIVE); URINE UROBILINOGEN 4.0 E.U/dl mg/dL (0.2-1.0)
[2017-11-05] MEDS: chlordiazePOXIDE HCL 25 MG CAPSULE PO SCH ×4 (05:30→22:17)
[2017-11-05] MEDS: NEOMYCIN/POLYMYXN B/GRAMICIDIN OPHTHALMIC 10 ML BOTTLE OD SCH ×5 (06:39→22:17)
[2017-11-05] MEDS ORDERED: amLODIPine BESYLATE 5 MG TABLET (FP) PO SCH (10:00)
[2017-11-05] MEDS ORDERED: BACITRACIN 0.9 GM PACKET TP SCH (10:00)
[2017-11-05] MEDS: amLODIPine BESYLATE 5 MG TABLET (FP) PO SCH (10:28)
[2017-11-05] MEDS: PRENATAL VITAMINS W/ FOLIC ACID TABLET (FP) PO SCH (10:28)
[2017-11-05] MEDS: NICOTINE 14 MG/24 HOURS TOPICAL PATCH TD SCH (10:29)
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
[2017-11-05 10:38] LABS: HEMATOCRIT 35.1 % (35.4-49); MCH 33.4 pg (25.7-33.7); MCHC 34.1 g/dl (32.0-35.9); MEAN PLT VOLUME 7.6 fl (7.5-11.1); PLATELET COUNT 186 K/MM3 (134-434); RBC 3.58 M/mm3 (4.00-5.60); RDW 14.6 % (11.9-15.9)
[2017-11-05 10:55] LABS: ALBUMIN 2.9 g/dl (3.4-5.0); CHLORIDE 108 mmol/L (98-107); POTASSIUM 3.9 mmol/L (3.5-5.1); SODIUM 142 mmol/L (136-145)
[2017-11-05 11:21] LABS: ALK PHOS 97 U/L (45-117); ANION GAP 6 (8-16); BLOOD UREA NITROGEN 16 mg/dL (7-18); CALCIUM 8.4 mg/dL (8.5-10.1); CO2 28 mmol/L (21-32); CREATININE 0.7 mg/dL (0.7-1.3); GLUCOSE,RANDOM 101 mg/dL (74-106); SGOT/AST 73 U/L (15-37); SGPT/ALT 56 U/L (12-78); TOT PROT 6.8 g/dl (6.4-8.2)
[2017-11-05] MEDS: BACITRACIN 0.9 GM PACKET TP SCH ×2 (14:50→22:19)
--- NOTE | 2017-11-05 16:59 | PN ---
[facility] CIWA - CIWA Score Nausea/Vomitin-No Nausea/No Vomiting Muscle Tremors: None Anxiety: 4-Mod. Anxious/Guarded Agitation: 3 Paroxysmal Sweats: 3 Orientation: 0-Oriented Tacttile Disturbances: 3-Moderate Itch/Numb/Burn Auditory Disturbances: 0-None Visual Disturbances: 3-Moderate Sensitivity Headache: 0-None Present CIWA-Ar Total Score: 16 BHS Progress Note (SOAP) Subjective: Sweating, Fatigue, Anxious. Objective: PATIENT A & O X 3, OBSERVED AMBULATING ON UNIT. NO ACUTE DISTRESS. 11/05/17 16:57 Vital Signs Temperature 97.2 F L 11/05/17 14:26 Pulse Rate 73 11/05/17 14:26 Respiratory Rate 18 11/05/17 14:26 Blood Pressure 120/70 11/05/17 14:26 O2 Sat by Pulse Oximetry (%) Laboratory Tests 11/04/17 11/05/17 11/05/17 23:01 07:50 07:50 WBC 5.0 RBC 3.58 L Hgb 12.0 Hct 35.1 L MCV 98.0 H MCH 33.4 MCHC 34.1 RDW 14.6 Plt Count 186 MPV 7.6 Sodium 142 Potassium 3.9 Chloride 108 H Carbon Dioxide 28 Anion Gap 6 L BUN 16 Creatinine 0.7 Creat Clearance w eGFR > 60 Random Glucose 101 D Calcium 8.4 L Total Bilirubin 1.0 D AST 73 H ALT 56 Alkaline Phosphatase 97 D Total Protein 6.8 Albumin 2.9 L Urine Color Yellow Urine Appearance Clear Urine pH 6.0 Ur Specific [place] 1.016 Urine Protein Negative Urine Glucose (UA) Negative Urine Ketones Negative Urine Blood Negative Urine Nitrite Negative Urine Bilirubin Negative Urine Urobilinogen 4.0 e.u/dl Ur Leukocyte Esterase Negative RPR Titer 11/05/17 07:50 WBC RBC Hgb Hct MCV MCH MCHC RDW Plt Count MPV Sodium Potassium Chloride Carbon Dioxide Anion Gap BUN Creatinine Creat Clearance w eGFR Random Glucose Calcium Total Bilirubin AST ALT Alkaline Phosphatase Total Protein Albumin Urine Color Urine Appearance Urine pH Ur Specific [place] Urine Protein Urine Glucose (UA) Urine Ketones Urine Blood Urine Nitrite Urine Bilirubin Urine Urobilinogen Ur Leukocyte Esterase RPR Titer Nonreactive LABS NOTED. Assessment: 11/05/17 16:58 WITHDRAWAL SYMPTOMS. Plan: CONTINUE DETOX. BP STABLE AT THIS TIME - MAINTAIN AMLODIPINE.
[2017-11-05] MEDS: THIAMINE HCL 100 MG TABLET (FP) PO SCH (22:17)
[2017-11-05] MEDS: traZODone HCL 50 MG TABLET (FP) PO SCH (22:17)
[2017-11-06] MEDS: chlordiazePOXIDE HCL 25 MG CAPSULE PO SCH ×3 (05:56→17:26)
[2017-11-06] MEDS: NEOMYCIN/POLYMYXN B/GRAMICIDIN OPHTHALMIC 10 ML BOTTLE OD SCH ×5 (05:57→22:21)
[2017-11-06] MEDS: BACITRACIN 0.9 GM PACKET TP SCH ×2 (10:27→22:20)
[2017-11-06] MEDS: PRENATAL VITAMINS W/ FOLIC ACID TABLET (FP) PO SCH (10:27)
[2017-11-06] MEDS: NICOTINE 14 MG/24 HOURS TOPICAL PATCH TD SCH (10:29)
[2017-11-06] MEDS: amLODIPine BESYLATE 5 MG TABLET (FP) PO SCH (10:29)
--- NOTE | 2017-11-06 13:12 | PN ---
[facility] CIWA - CIWA Score Nausea/Vomitin Muscle Tremors: 3 Anxiety: 3 Agitation: 3 Paroxysmal Sweats: 3 Orientation: 0-Oriented Tacttile Disturbances: 1-Very Mild Itch/Numbness Auditory Disturbances: 0-None Visual Disturbances: 0-None Headache: 1-Very Mild CIWA-Ar Total Score: 17 [facility] Progress Note (SOAP) Subjective: Tremor, chills, sweating; has eye patch over right eye stating he had cataract surgery on Tuesday Objective: 11/06/17 13:10 Last Vital Signs Temp Pulse Resp BP Pulse Ox 98.4 F 96 H 18 96/66 11/06/17 09:48 11/06/17 09:48 11/06/17 09:48 11/06/17 09:48 Laboratory Tests 11/04/17 11/05/17 11/05/17 23:01 07:50 07:50 WBC 5.0 RBC 3.58 L Hgb 12.0 Hct 35.1 L MCV 98.0 H MCH 33.4 MCHC 34.1 RDW 14.6 Plt Count 186 MPV 7.6 Sodium 142 Potassium 3.9 Chloride 108 H Carbon Dioxide 28 Anion Gap 6 L BUN 16 Creatinine 0.7 Creat Clearance w eGFR > 60 Random Glucose 101 D Calcium 8.4 L Total Bilirubin 1.0 D AST 73 H ALT 56 Alkaline Phosphatase 97 D Total Protein 6.8 Albumin 2.9 L Urine Color Yellow Urine Appearance Clear Urine pH 6.0 Ur Specific [place] 1.016 Urine Protein Negative Urine Glucose (UA) Negative Urine Ketones Negative Urine Blood Negative Urine Nitrite Negative Urine Bilirubin Negative Urine Urobilinogen 4.0 e.u/dl Ur Leukocyte Esterase Negative RPR Titer 11/05/17 07:50 WBC RBC Hgb Hct MCV MCH MCHC RDW Plt Count MPV Sodium Potassium Chloride Carbon Dioxide Anion Gap BUN Creatinine Creat Clearance w eGFR Random Glucose Calcium Total Bilirubin AST ALT Alkaline Phosphatase Total Protein Albumin Urine Color Urine Appearance Urine pH Ur Specific [place] Urine Protein Urine Glucose (UA) Urine Ketones Urine Blood Urine Nitrite Urine Bilirubin Urine Urobilinogen Ur Leukocyte Esterase RPR Titer Nonreactive Labs reviewed Assessment: 11/06/17 13:10 Withdrawal symptoms Plan: Continue detox Encouraged PO hydration (water)
[2017-11-06] MEDS: chlordiazePOXIDE 5 MG CAPSULE PO SCH (22:18)
[2017-11-06] MEDS: traZODone HCL 50 MG TABLET (FP) PO SCH (22:19)
[2017-11-06] MEDS: THIAMINE HCL 100 MG TABLET (FP) PO SCH (22:19)
[2017-11-07] MEDS: chlordiazePOXIDE 5 MG CAPSULE PO SCH ×3 (05:10→17:18)
[2017-11-07] MEDS: NEOMYCIN/POLYMYXN B/GRAMICIDIN OPHTHALMIC 10 ML BOTTLE OD SCH ×5 (07:46→22:19)
[2017-11-07] MEDS: BACITRACIN 0.9 GM PACKET TP SCH ×2 (10:25→22:18)
[2017-11-07] MEDS: PRENATAL VITAMINS W/ FOLIC ACID TABLET (FP) PO SCH (10:26)
[2017-11-07] MEDS: amLODIPine BESYLATE 5 MG TABLET (FP) PO SCH (10:26)
[2017-11-07] MEDS: NICOTINE 14 MG/24 HOURS TOPICAL PATCH TD SCH (10:26)
--- NOTE | 2017-11-07 13:39 | PN ---
[facility] Progress Note (SOAP) Subjective: Shakes Sweats Sleepless Objective: 11/07/17 13:36 A & O x 3 R eye patch, redness, echymosis to R periorbital area; able to see out of R eye - no discharges Ambulating on unit Vital Signs Temperature 97.4 F L 11/07/17 09:22 Pulse Rate 78 11/07/17 09:22 Respiratory Rate 16 11/07/17 09:22 Blood Pressure 118/71 11/07/17 09:22 O2 Sat by Pulse Oximetry (%) Assessment: 11/07/17 13:38 withdrawal sx R eye injury healing Plan: continue detox continue treatment for eye injury cane for ambulation
[2017-11-07] MEDS: chlordiazePOXIDE HCL 10 MG CAPSULE PO SCH (22:19)
[2017-11-07] MEDS: THIAMINE HCL 100 MG TABLET (FP) PO SCH (22:19)
[2017-11-07] MEDS: traZODone HCL 50 MG TABLET (FP) PO SCH (22:19)
--- NOTE | 2017-11-08 00:51 | EKG ---
Test Reason : Blood Pressure : / mmHG Vent. Rate : 069 BPM Atrial Rate : 069 BPM P-R Int : 116 ms QRS Dur : 084 ms QT Int : 444 ms P-R-T Axes : 000 166 159 degrees QTc Int : 475 ms NORMAL SINUS RHYTHM RIGHT AXIS DEVIATION ABNORMAL ECG WHEN COMPARED WITH ECG OF 17-JUL-2017 14:55, T WAVE VARIATION Confirmed by DEION BAEZ MD ([id number]) on 11/08/2017 12:51:23 AM Referred By: Confirmed By:DEION BAEZ MD
[2017-11-08] MEDS: chlordiazePOXIDE HCL 10 MG CAPSULE PO SCH ×2 (05:37→10:40)
[2017-11-08] MEDS: NEOMYCIN/POLYMYXN B/GRAMICIDIN OPHTHALMIC 10 ML BOTTLE OD SCH ×2 (05:40→10:41)
[2017-11-08 10:08] VITALS: BP 120/70; PULSE 74; TEMP 97
[2017-11-08] MEDS: PRENATAL VITAMINS W/ FOLIC ACID TABLET (FP) PO SCH (10:40)
[2017-11-08] MEDS: amLODIPine BESYLATE 5 MG TABLET (FP) PO SCH (10:40)
[2017-11-08] MEDS: NICOTINE 14 MG/24 HOURS TOPICAL PATCH TD SCH (10:40)
[2017-11-08] MEDS: BACITRACIN 0.9 GM PACKET TP SCH (10:40)
--- NOTE | 2017-11-08 16:47 | PN ---
[facility] Progress Note (SOAP) Subjective: Patient reports mild fatigue. Patient denies any other unusual detox symptoms at this time. Objective: PATIENT A & O X 3, OBSERVED AMBULATING ON UNIT. NO ACUTE DISTRESS. 11/08/17 16:45 Vital Signs Temperature 97 F L 11/08/17 10:07 Pulse Rate 74 11/08/17 10:07 Respiratory Rate 18 11/08/17 10:07 Blood Pressure 120/70 11/08/17 10:07 O2 Sat by Pulse Oximetry (%) Laboratory Tests 11/04/17 11/05/17 11/05/17 23:01 07:50 07:50 WBC 5.0 RBC 3.58 L Hgb 12.0 Hct 35.1 L MCV 98.0 H MCH 33.4 MCHC 34.1 RDW 14.6 Plt Count 186 MPV 7.6 Sodium 142 Potassium 3.9 Chloride 108 H Carbon Dioxide 28 Anion Gap 6 L BUN 16 Creatinine 0.7 Creat Clearance w eGFR > 60 Random Glucose 101 D Calcium 8.4 L Total Bilirubin 1.0 D AST 73 H ALT 56 Alkaline Phosphatase 97 D Total Protein 6.8 Albumin 2.9 L Urine Color Yellow Urine Appearance Clear Urine pH 6.0 Ur Specific [place] 1.016 Urine Protein Negative Urine Glucose (UA) Negative Urine Ketones Negative Urine Blood Negative Urine Nitrite Negative Urine Bilirubin Negative Urine Urobilinogen 4.0 e.u/dl Ur Leukocyte Esterase Negative RPR Titer 11/05/17 07:50 WBC RBC Hgb Hct MCV MCH MCHC RDW Plt Count MPV Sodium Potassium Chloride Carbon Dioxide Anion Gap BUN Creatinine Creat Clearance w eGFR Random Glucose Calcium Total Bilirubin AST ALT Alkaline Phosphatase Total Protein Albumin Urine Color Urine Appearance Urine pH Ur Specific [place] Urine Protein Urine Glucose (UA) Urine Ketones Urine Blood Urine Nitrite Urine Bilirubin Urine Urobilinogen Ur Leukocyte Esterase RPR Titer Nonreactive LABS NOTED. Assessment: 11/08/17 16:46 COMPLETION OF DETOX REGIMEN. Plan: PATIENT SCHEDULED FOR DISCHARGE FROM DETOX UNIT TODAY.
--- NOTE | 2017-11-08 16:51 | DS ---
[facility] Detox Discharge Summary Admission Date: 11/04/17 Discharge Date: 11/08/17 - History Present History: Alcohol Dependence Additional Comments: PATIENT GOING HOME. PATIENT ADVISED TO CONSIDER LOCAL 12-STEP / AA OUTPATIENT SUPPORT GROUPS FOR AFTERCARE. PATIENT ALSO ADVISED TO FOLLOW-UP WITH [employer] REPAIRER SUPERVISOR ( Gonsalo BRANNON) AFTER DISCHARGE FROM DETOX FOR GENERAL MEDICAL ASSESSMENT AND FOR FOLLOW-UP FOR ASSESSMENT OF WOUND TO EYE. PATIENT WAS DISCHARGED FROM DETOX UNIT IN STABLE MEDICAL CONDITION. Pertinent Past History: Nicotine Dependence, History of Hip Replacement, Arthritis, Weight Loss, Insomnia, Schizophrenia, HTN, Hyperlipidemia, Abrasion of Hand, Dehydration. - Physical Exam Results Vital Signs: Vital Signs Temperature 97 F L 11/08/17 10:07 Pulse Rate 74 11/08/17 10:07 Respiratory Rate 18 11/08/17 10:07 Blood Pressure 120/70 11/08/17 10:07 O2 Sat by Pulse Oximetry (%) Pertinent Admission Physical Exam Findings: WITHDRAWAL SYMPTOMS. Laboratory Tests 11/04/17 11/05/17 11/05/17 23:01 07:50 07:50 WBC 5.0 RBC 3.58 L Hgb 12.0 Hct 35.1 L MCV 98.0 H MCH 33.4 MCHC 34.1 RDW 14.6 Plt Count 186 MPV 7.6 Sodium 142 Potassium 3.9 Chloride 108 H Carbon Dioxide 28 Anion Gap 6 L BUN 16 Creatinine 0.7 Creat Clearance w eGFR > 60 Random Glucose 101 D Calcium 8.4 L Total Bilirubin 1.0 D AST 73 H ALT 56 Alkaline Phosphatase 97 D Total Protein 6.8 Albumin 2.9 L Urine Color Yellow Urine Appearance Clear Urine pH 6.0 Ur Specific [place] 1.016 Urine Protein Negative Urine Glucose (UA) Negative Urine Ketones Negative Urine Blood Negative Urine Nitrite Negative Urine Bilirubin Negative Urine Urobilinogen 4.0 e.u/dl Ur Leukocyte Esterase Negative RPR Titer 11/05/17 07:50 WBC RBC Hgb Hct MCV MCH MCHC RDW Plt Count MPV Sodium Potassium Chloride Carbon Dioxide Anion Gap BUN Creatinine Creat Clearance w eGFR Random Glucose Calcium Total Bilirubin AST ALT Alkaline Phosphatase Total Protein Albumin Urine Color Urine Appearance Urine pH Ur Specific [place] Urine Protein Urine Glucose (UA) Urine Ketones Urine Blood Urine Nitrite Urine Bilirubin Urine Urobilinogen Ur Leukocyte Esterase RPR Titer Nonreactive LABS NOTED. - Treatment Hospital Course: Detox Protocol Followed, Detoxed Safely, Responded well, Discharged Condition Good Patient has Accepted a Rehab Referral to: PT GOING HOME, ADVISED TO CONSIDER LOCAL 12-STEP/AA OP SUPPORT GROUPS. - Medication Discharge Medications: Ambulatory Orders Budesonide/Formeterol Fumarate [SYMBICORT 80/4.5mcg -] 2 inh IH BID #1 inhaler 07/26/16 traZODone HCL [Desyrel -] 100 mg PO HS #30 tablet 07/26/16 Albuterol Sulfate Inhaler - [Ventolin HFA Inhaler -] 2 inh IH Q4H PRN #1 inhaler 06/23/17 Amlodipine Besylate [Norvasc -] 2.5 mg PO DAILY #30 tablet 07/20/17 - Diagnosis (1) Alcohol dependence with uncomplicated withdrawal Status: Acute (2) Cocaine dependence Status: Acute Qualifiers: Substance use status: uncomplicated Qualified Code(s): F14.20 - Cocaine dependence, uncomplicated (3) Nicotine dependence Status: Chronic Qualifiers: Nicotine product type: cigarettes Substance use status: in withdrawal Qualified Code(s): F17.213 - Nicotine dependence, cigarettes, with withdrawal (4) Dehydration Status: Acute (5) Eye trauma Status: Acute (6) Weight loss Status: Acute (7) Status post right hip replacement Status: Chronic (8) Arthritis Status: Chronic (9) Essential hypertension Status: Chronic (10) HLD (hyperlipidemia) Status: Chronic Qualifiers: Hyperlipidemia type: unspecified Qualified Code(s): E78.5 - Hyperlipidemia , unspecified (11) History of schizophrenia Status: Chronic (12) Schizophrenia Status: Chronic Qualifiers: Schizophrenia type: unspecified Qualified Code(s): F20.9 - Schizophrenia, unspecified (13) Substance induced mood disorder Status: Chronic - AMA Did Patient Leave Against Medical Advice: No
== END 2017-11-08 13:40 | disposition home or self-care (01) | DRG 897 ==
LOC: YASAS 15:51 → Y3N 22:25
PROVIDERS: ADMIT Internal Medicine; ATTEND Internal Medicine
PROC: HZ2ZZZZ Detoxification Services for Substance Abuse Treatment (ICD-10-PCS; principal; 2017-11-04)
DX: F10.230 Alcohol dependence with withdrawal, uncomplicated (principal); F14.20 Cocaine dependence, uncomplicated; F17.213 Nicotine dependence, cigarettes, with withdrawal; F20.9 Schizophrenia, unspecified; F19.24 Other psychoactive substance dependence with psychoactive substance-induced mood disorder; B18.2 Chronic viral hepatitis C; I10 Essential (primary) hypertension; E78.5 Hyperlipidemia, unspecified; E86.0 Dehydration; M12.9 Arthropathy, unspecified; R63.4 Abnormal weight loss; Z96.641 Presence of right artificial hip joint; Z68.21 Body mass index [BMI] 21.0-21.9, adult
CPT/HCPCS: 36415; 80053; 81003; 85027; 86593; 93005; 93010; J0735

== ENCOUNTER 2018-07-22 13:53 | Inpatient (IN) | payer OTHER ==
[2018-07-22 14:23] VITALS: BMI 26.7
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
[2018-07-22] MEDS ORDERED: MAGNESIUM HYDROX 2400MG/30ML ORAL SUSPENSION 30 ML CUP PO PRN (16:49)
[2018-07-22] MEDS ORDERED: guaiFENesin/D-METHORPHAN HB 10 ML UNIT-DOSE CUPS PO PRN (16:49)
[2018-07-22] MEDS ORDERED: chlordiazePOXIDE HCL 25 MG CAPSULE PO PRN (16:49)
[2018-07-22] MEDS ORDERED: ACETAMINOPHEN 325 MG TABLET (FP) PO PRN (16:49)
[2018-07-22] MEDS ORDERED: P-EPHED 60MG/TRIPROLIDI 2.5MG TABLET PO PRN (16:49)
[2018-07-22] MEDS ORDERED: LOPERAMIDE HCL 2 MG CAPSULE PO PRN (16:49)
[2018-07-22] MEDS ORDERED: MAGNESIUM CITRATE 300 ML BOTTLE PO PRN (16:49)
[2018-07-22] MEDS ORDERED: IBUPROFEN 400 MG TABLET (FP) PO PRN (16:49)
[2018-07-22] MEDS ORDERED: MENTHOL/PHENOL 1 EACH UD MM PRN (16:49)
[2018-07-22] MEDS ORDERED: hydrOXYzine PAMOATE 50 MG CAPSULE (FP) PO PRN (16:49)
[2018-07-22] MEDS ORDERED: ALBUTEROL SO4 8 GM HFA INHALER IH PRN (16:51)
[2018-07-22] MEDS: amLODIPine BESYLATE 2.5 MG TABLET (FP) PO SCH (20:18)
[2018-07-22] MEDS: BUDESONIDE/FORMETEROL FUMARATE 80/4.5 mcg INHALER IH SCH (22:36)
[2018-07-22] MEDS: chlordiazePOXIDE HCL 25 MG CAPSULE PO SCH (22:37)
[2018-07-22] MEDS: THIAMINE HCL 100 MG TABLET (FP) PO SCH (22:37)
[2018-07-23] MEDS: chlordiazePOXIDE HCL 25 MG CAPSULE PO SCH ×4 (05:48→22:01)
[2018-07-23] MEDS: PRENATAL VITAMINS W/ FOLIC ACID TABLET (FP) PO SCH (10:08)
[2018-07-23] MEDS: BUDESONIDE/FORMETEROL FUMARATE 80/4.5 mcg INHALER IH SCH ×2 (10:08→22:01)
[2018-07-23] MEDS: amLODIPine BESYLATE 2.5 MG TABLET (FP) PO SCH (10:08)
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
[2018-07-23 10:34] LABS: ALBUMIN 2.9 g/dl (3.4-5.0); ALK PHOS 109 U/L (45-117); ANION GAP 8 MMOL/L (8-16); BILIRUBIN,TOTAL 0.5 mg/dL (0.2-1); BLOOD UREA NITROGEN 20 mg/dL (7-18); CALCIUM 8.6 mg/dL (8.5-10.1); CHLORIDE 106 mmol/L (98-107); CO2 28 mmol/L (21-32); CREATININE 0.9 mg/dL (0.55-1.3); GLUCOSE,RANDOM 129 mg/dL (74-106); SGOT/AST 79 U/L (15-37); SGPT/ALT 77 U/L (13-61); SODIUM 141 mmol/L (136-145); TOT PROT 6.7 g/dl (6.4-8.2)
[2018-07-23 10:35] LABS: HEMOGLOBIN 12.8 GM/dL (11.7-16.9); MCH 33.5 pg (25.7-33.7); MCHC 33.6 g/dl (32.0-35.9); MEAN CELL VOLUME 99.6 fl (80-96); MEAN PLT VOLUME 8.4 fl (7.5-11.1); PLATELET COUNT 162 K/MM3 (134-434); RBC 3.82 M/mm3 (4.00-5.60); WHITE BLOOD COUNT 4.7 K/mm3 (4.0-10.0)
--- NOTE | 2018-07-23 12:35 | PN ---
S CIWA - CIWA Score Nausea/Vomitin-Mild Nausea/No Vomiting Muscle Tremors: 3 Anxiety: 2 Agitation: 2 Paroxysmal Sweats: 1-Minimal Palms Moist Orientation: 1-Uncertain about Date Tacttile Disturbances: 0-None Auditory Disturbances: 0-None Visual Disturbances: 0-None Headache: 2-Mild CIWA-Ar Total Score: 12 S Progress Note (SOAP) Subjective: tremor sweating restlessness trouble slept through the night Objective: 07/23/18 12:33 Vital Signs Temperature 98.2 F 07/23/18 09:26 Pulse Rate 87 07/23/18 11:30 Respiratory Rate 18 07/23/18 11:30 Blood Pressure 153/89 07/23/18 09:26 O2 Sat by Pulse Oximetry (%) Laboratory Last Values WBC 4.7 K/mm3 (4.0-10.0) 07/23/18 07:50 RBC 3.82 M/mm3 (4.00-5.60) L 07/23/18 07:50 Hgb 12.8 GM/dL (11.7-16.9) 07/23/18 07:50 Hct 38.0 % (35.4-49) 07/23/18 07:50 MCV 99.6 fl (80-96) H 07/23/18 07:50 MCH 33.5 pg (25.7-33.7) 07/23/18 07:50 MCHC 33.6 g/dl (32.0-35.9) 07/23/18 07:50 RDW 14.0 % (11.9-15.9) 07/23/18 07:50 Plt Count 162 K/MM3 (134-434) 07/23/18 07:50 MPV 8.4 fl (7.5-11.1) D 07/23/18 07:50 Sodium 141 mmol/L (136-145) 07/23/18 07:50 Potassium 4.0 mmol/L (3.5-5.1) 07/23/18 07:50 Chloride 106 mmol/L (98-107) 07/23/18 07:50 Carbon Dioxide 28 mmol/L (21-32) 07/23/18 07:50 Anion Gap 8 MMOL/L (8-16) 07/23/18 07:50 BUN 20 mg/dL (7-18) H 07/23/18 07:50 Creatinine 0.9 mg/dL (0.55-1.3) 07/23/18 07:50 Creat Clearance w eGFR > 60 (>60) 07/23/18 07:50 Random Glucose 129 mg/dL (74-106) H 07/23/18 07:50 Calcium 8.6 mg/dL (8.5-10.1) 07/23/18 07:50 Total Bilirubin 0.5 mg/dL (0.2-1) 07/23/18 07:50 AST 79 U/L (15-37) H 07/23/18 07:50 ALT 77 U/L (13-61) H 07/23/18 07:50 Alkaline Phosphatase 109 U/L (45-117) 07/23/18 07:50 Total Protein 6.7 g/dl (6.4-8.2) 07/23/18 07:50 Albumin 2.9 g/dl (3.4-5.0) L 07/23/18 07:50 RPR Titer Nonreactive (NONREACTIVE) 07/23/18 07:50 HIV 1&2 Antibody Screen Negative 07/23/18 07:50 HIV P24 Antigen Negative 07/23/18 07:50 lab noted had first dose amlodipine upon admission Assessment: 07/23/18 12:33 withdrawal sx Plan: continue detox
--- NOTE | 2018-07-23 15:43 | EKG ---
Test Reason : Blood Pressure : / mmHG Vent. Rate : 082 BPM Atrial Rate : 089 BPM P-R Int : 116 ms QRS Dur : 088 ms QT Int : 374 ms P-R-T Axes : 061 018 -14 degrees QTc Int : 436 ms NORMAL SINUS RHYTHM WITH SINUS ARRHYTHMIA NONSPECIFIC ST AND T WAVE ABNORMALITY ABNORMAL ECG WHEN COMPARED WITH ECG OF 05-NOV-2017 01:24, QRS AXIS SHIFTED LEFT NONSPECIFIC T WAVE ABNORMALITY, WORSE IN INFERIOR LEADS T WAVE INVERSION NO LONGER EVIDENT IN LATERAL LEADS Confirmed by ODALIS LEONE MD ([id number]) on 07/23/2018 3:43:26 PM Referred By: Confirmed By:ODALIS LEONE MD
[2018-07-23] MEDS: THIAMINE HCL 100 MG TABLET (FP) PO SCH (22:01)
[2018-07-24] MEDS: chlordiazePOXIDE HCL 25 MG CAPSULE PO SCH ×3 (05:15→17:06)
--- NOTE | 2018-07-24 09:23 | PN ---
S CIWA - CIWA Score Nausea/Vomitin-No Nausea/No Vomiting Muscle Tremors: 2 Anxiety: 2 Agitation: 1-Slight > Activity Paroxysmal Sweats: 1-Minimal Palms Moist Orientation: 1-Uncertain about Date Tacttile Disturbances: 0-None Auditory Disturbances: 0-None Visual Disturbances: 0-None Headache: 1-Very Mild CIWA-Ar Total Score: 8 BHS Progress Note (SOAP) Subjective: tremor sweating sleep better at night Objective: 07/24/18 09:23 Vital Signs Temperature 96.6 F L 07/24/18 09:03 Pulse Rate 93 H 07/24/18 09:03 Respiratory Rate 18 07/24/18 09:03 Blood Pressure 140/87 07/24/18 09:03 O2 Sat by Pulse Oximetry (%) Laboratory Last Values WBC 4.7 K/mm3 (4.0-10.0) 07/23/18 07:50 RBC 3.82 M/mm3 (4.00-5.60) L 07/23/18 07:50 Hgb 12.8 GM/dL (11.7-16.9) 07/23/18 07:50 Hct 38.0 % (35.4-49) 07/23/18 07:50 MCV 99.6 fl (80-96) H 07/23/18 07:50 MCH 33.5 pg (25.7-33.7) 07/23/18 07:50 MCHC 33.6 g/dl (32.0-35.9) 07/23/18 07:50 RDW 14.0 % (11.9-15.9) 07/23/18 07:50 Plt Count 162 K/MM3 (134-434) 07/23/18 07:50 MPV 8.4 fl (7.5-11.1) D 07/23/18 07:50 Sodium 141 mmol/L (136-145) 07/23/18 07:50 Potassium 4.0 mmol/L (3.5-5.1) 07/23/18 07:50 Chloride 106 mmol/L (98-107) 07/23/18 07:50 Carbon Dioxide 28 mmol/L (21-32) 07/23/18 07:50 Anion Gap 8 MMOL/L (8-16) 07/23/18 07:50 BUN 20 mg/dL (7-18) H 07/23/18 07:50 Creatinine 0.9 mg/dL (0.55-1.3) 07/23/18 07:50 Creat Clearance w eGFR > 60 (>60) 07/23/18 07:50 Random Glucose 129 mg/dL (74-106) H 07/23/18 07:50 Calcium 8.6 mg/dL (8.5-10.1) 07/23/18 07:50 Total Bilirubin 0.5 mg/dL (0.2-1) 07/23/18 07:50 AST 79 U/L (15-37) H 07/23/18 07:50 ALT 77 U/L (13-61) H 07/23/18 07:50 Alkaline Phosphatase 109 U/L (45-117) 07/23/18 07:50 Total Protein 6.7 g/dl (6.4-8.2) 07/23/18 07:50 Albumin 2.9 g/dl (3.4-5.0) L 07/23/18 07:50 RPR Titer Nonreactive (NONREACTIVE) 07/23/18 07:50 HIV 1&2 Antibody Screen Negative 07/23/18 07:50 HIV P24 Antigen Negative 07/23/18 07:50 lab noted hypertension Assessment: 07/24/18 09:24 withdrawal sx hypertension Plan: continue detox increase amlodopin to 5 mg
[2018-07-24] MEDS: BUDESONIDE/FORMETEROL FUMARATE 80/4.5 mcg INHALER IH SCH ×2 (10:03→22:23)
[2018-07-24] MEDS: PRENATAL VITAMINS W/ FOLIC ACID TABLET (FP) PO SCH (10:03)
[2018-07-24] MEDS: MAG HYDROX/AL HYDROX/SIMETH 30 ML UNIT-DOSE CUP PO PRN (14:35)
[2018-07-24] MEDS: amLODIPine BESYLATE 5 MG TABLET (FP) PO SCH (19:36)
[2018-07-24] MEDS: MELATONIN 5 MG TABLETS PO PRN (22:22)
[2018-07-24] MEDS: chlordiazePOXIDE 5 MG CAPSULE PO SCH (22:22)
[2018-07-24] MEDS: THIAMINE HCL 100 MG TABLET (FP) PO SCH (22:22)
[2018-07-25] MEDS: chlordiazePOXIDE 5 MG CAPSULE PO SCH ×3 (05:44→17:14)
[2018-07-25] MEDS: MAG HYDROX/AL HYDROX/SIMETH 30 ML UNIT-DOSE CUP PO PRN (05:51)
[2018-07-25] MEDS: BUDESONIDE/FORMETEROL FUMARATE 80/4.5 mcg INHALER IH SCH ×2 (10:15→22:07)
[2018-07-25] MEDS: PRENATAL VITAMINS W/ FOLIC ACID TABLET (FP) PO SCH (10:16)
[2018-07-25] MEDS: amLODIPine BESYLATE 5 MG TABLET (FP) PO SCH (10:16)
--- NOTE | 2018-07-25 14:46 | PN ---
BHS Progress Note (SOAP) Subjective: feeling better less sweating mild tremor sleep better at night Objective: 07/25/18 14:51 Vital Signs Temperature 96.1 F L 07/25/18 13:38 Pulse Rate 106 H 07/25/18 13:38 Respiratory Rate 18 07/25/18 13:38 Blood Pressure 113/78 07/25/18 13:38 O2 Sat by Pulse Oximetry (%) Laboratory Last Values WBC 4.7 K/mm3 (4.0-10.0) 07/23/18 07:50 RBC 3.82 M/mm3 (4.00-5.60) L 07/23/18 07:50 Hgb 12.8 GM/dL (11.7-16.9) 07/23/18 07:50 Hct 38.0 % (35.4-49) 07/23/18 07:50 MCV 99.6 fl (80-96) H 07/23/18 07:50 MCH 33.5 pg (25.7-33.7) 07/23/18 07:50 MCHC 33.6 g/dl (32.0-35.9) 07/23/18 07:50 RDW 14.0 % (11.9-15.9) 07/23/18 07:50 Plt Count 162 K/MM3 (134-434) 07/23/18 07:50 MPV 8.4 fl (7.5-11.1) D 07/23/18 07:50 Sodium 141 mmol/L (136-145) 07/23/18 07:50 Potassium 4.0 mmol/L (3.5-5.1) 07/23/18 07:50 Chloride 106 mmol/L (98-107) 07/23/18 07:50 Carbon Dioxide 28 mmol/L (21-32) 07/23/18 07:50 Anion Gap 8 MMOL/L (8-16) 07/23/18 07:50 BUN 20 mg/dL (7-18) H 07/23/18 07:50 Creatinine 0.9 mg/dL (0.55-1.3) 07/23/18 07:50 Creat Clearance w eGFR > 60 (>60) 07/23/18 07:50 Random Glucose 129 mg/dL (74-106) H 07/23/18 07:50 Calcium 8.6 mg/dL (8.5-10.1) 07/23/18 07:50 Total Bilirubin 0.5 mg/dL (0.2-1) 07/23/18 07:50 AST 79 U/L (15-37) H 07/23/18 07:50 ALT 77 U/L (13-61) H 07/23/18 07:50 Alkaline Phosphatase 109 U/L (45-117) 07/23/18 07:50 Total Protein 6.7 g/dl (6.4-8.2) 07/23/18 07:50 Albumin 2.9 g/dl (3.4-5.0) L 07/23/18 07:50 RPR Titer Nonreactive (NONREACTIVE) 07/23/18 07:50 HIV 1&2 Antibody Screen Negative 07/23/18 07:50 HIV P24 Antigen Negative 07/23/18 07:50 lab noted Assessment: 07/25/18 14:51 mild withdrawal sx Plan: continue detox
[2018-07-25] MEDS: THIAMINE HCL 100 MG TABLET (FP) PO SCH (22:07)
[2018-07-25] MEDS: chlordiazePOXIDE HCL 10 MG CAPSULE PO SCH (22:07)
[2018-07-25] MEDS: MELATONIN 5 MG TABLETS PO PRN (22:07)
[2018-07-26] MEDS: chlordiazePOXIDE HCL 10 MG CAPSULE PO SCH ×2 (05:22→10:10)
[2018-07-26] MEDS: MAG HYDROX/AL HYDROX/SIMETH 30 ML UNIT-DOSE CUP PO PRN (06:47)
[2018-07-26] MEDS: PRENATAL VITAMINS W/ FOLIC ACID TABLET (FP) PO SCH (10:10)
[2018-07-26] MEDS: BUDESONIDE/FORMETEROL FUMARATE 80/4.5 mcg INHALER IH SCH (10:10)
[2018-07-26] MEDS: amLODIPine BESYLATE 5 MG TABLET (FP) PO SCH (10:10)
--- NOTE | 2018-07-26 11:23 | DS ---
[facility] Detox Discharge Summary Admission Date: 07/22/18 Discharge Date: 07/26/18 - History Present History: Alcohol Dependence Additional Comments: 68 years old male admitted on 07/22/18 for alcohol withdrawal stabilization completed detox regimen after[facility] Pertinent Past History: patient is managed medicare can not be directly transferred from detox to rehab - Physical Exam Results Vital Signs: Vital Signs Temperature 97.9 F 07/26/18 09:13 Pulse Rate 75 07/26/18 09:13 Respiratory Rate 18 07/26/18 09:13 Blood Pressure 128/75 07/26/18 09:13 O2 Sat by Pulse Oximetry (%) Pertinent Admission Physical Exam Findings: alcohol withdrawal sx Laboratory Last Values WBC 4.7 K/mm3 (4.0-10.0) 07/23/18 07:50 RBC 3.82 M/mm3 (4.00-5.60) L 07/23/18 07:50 Hgb 12.8 GM/dL (11.7-16.9) 07/23/18 07:50 Hct 38.0 % (35.4-49) 07/23/18 07:50 MCV 99.6 fl (80-96) H 07/23/18 07:50 MCH 33.5 pg (25.7-33.7) 07/23/18 07:50 MCHC 33.6 g/dl (32.0-35.9) 07/23/18 07:50 RDW 14.0 % (11.9-15.9) 07/23/18 07:50 Plt Count 162 K/MM3 (134-434) 07/23/18 07:50 MPV 8.4 fl (7.5-11.1) D 07/23/18 07:50 Sodium 141 mmol/L (136-145) 07/23/18 07:50 Potassium 4.0 mmol/L (3.5-5.1) 07/23/18 07:50 Chloride 106 mmol/L (98-107) 07/23/18 07:50 Carbon Dioxide 28 mmol/L (21-32) 07/23/18 07:50 Anion Gap 8 MMOL/L (8-16) 07/23/18 07:50 BUN 20 mg/dL (7-18) H 07/23/18 07:50 Creatinine 0.9 mg/dL (0.55-1.3) 07/23/18 07:50 Creat Clearance w eGFR > 60 (>60) 07/23/18 07:50 Random Glucose 129 mg/dL (74-106) H 07/23/18 07:50 Calcium 8.6 mg/dL (8.5-10.1) 07/23/18 07:50 Total Bilirubin 0.5 mg/dL (0.2-1) 07/23/18 07:50 AST 79 U/L (15-37) H 07/23/18 07:50 ALT 77 U/L (13-61) H 07/23/18 07:50 Alkaline Phosphatase 109 U/L (45-117) 07/23/18 07:50 Total Protein 6.7 g/dl (6.4-8.2) 07/23/18 07:50 Albumin 2.9 g/dl (3.4-5.0) L 07/23/18 07:50 RPR Titer Nonreactive (NONREACTIVE) 07/23/18 07:50 HIV 1&2 Antibody Screen Negative 07/23/18 07:50 HIV P24 Antigen Negative 07/23/18 07:50 lab noted - Treatment Hospital Course: Detox Protocol Followed, Detoxed Safely, Responded well, Discharged Condition Good, Rehab Referral Accepted Patient has Accepted a Rehab Referral to: [facility] - Medication Discharge Medications: Ambulatory Orders traZODone HCL [Desyrel -] 100 mg PO HS #30 tablet 07/26/16 Amlodipine Besylate [Norvasc -] 2.5 mg PO DAILY #30 tablet 07/20/17 Albuterol Sulfate Inhaler - [Ventolin HFA Inhaler -] 2 inh IH Q4H PRN #1 inhaler 07/25/18 Amlodipine Besylate [Norvasc -] 5 mg PO DAILY #14 tablet 07/25/18 Budesonide/Formeterol Fumarate [SYMBICORT 80/4.5mcg -] 2 inh IH BID #1 inhaler 07/25/18 - Diagnosis (1) Alcohol dependence with uncomplicated withdrawal Current Visit: Yes Status: Acute (2) Asthma Current Visit: Yes Status: Chronic Qualifiers: Asthma severity: mild Asthma persistence: intermittent Asthma complication type: with status asthmaticus Qualified Code(s): J45.22 - Mild intermittent asthma with status asthmaticus - AMA Did Patient Leave Against Medical Advice: No
[2018-07-26 13:05] VITALS: BP 132/76; PULSE 67; TEMP 96.4
== END 2018-07-26 14:00 | disposition other institution (70) | DRG 897 ==
LOC: YASAS 13:53 → Y3N 19:16
PROVIDERS: ADMIT Neuromusculoskeletal Medicine & OMM; ATTEND Neuromusculoskeletal Medicine & OMM
PROC: HZ2ZZZZ Detoxification Services for Substance Abuse Treatment (ICD-10-PCS; principal; 2018-07-22)
DX: F10.230 Alcohol dependence with withdrawal, uncomplicated (principal); F14.20 Cocaine dependence, uncomplicated; F20.5 Residual schizophrenia; J45.22 Mild intermittent asthma with status asthmaticus; F17.210 Nicotine dependence, cigarettes, uncomplicated; F19.24 Other psychoactive substance dependence with psychoactive substance-induced mood disorder; I10 Essential (primary) hypertension; M19.90 Unspecified osteoarthritis, unspecified site; E78.5 Hyperlipidemia, unspecified; B18.2 Chronic viral hepatitis C; G47.00 Insomnia, unspecified; Z86.69 Personal history of other diseases of the nervous system and sense organs; Z96.641 Presence of right artificial hip joint; Z91.5 Personal history of self-harm
CPT/HCPCS: 36415; 80053; 85027; 86593; 87389; 93005; 93010

== ENCOUNTER 2018-07-26 14:24 | Inpatient (IN) | payer OTHER ==
--- NOTE | 2018-07-26 11:24 | HP ---
[facility] Rehab Assess/Revision - Admission History Admitted to Rehab from: [facility] Date of Admission to Rehab: 07/26/18 - Findings Detox History & Physical reviewed: Yes Concur with findings: Yes Comments/Additional Findings: transferred from detox to rehab admission as per protocol Inpatient Rehab Admission - Initial Determination Are CD services needed?: Yes Free of communicable disease: Yes Not in need of hospitalization: Yes - Rehab Admission Criteria Previous failed treatment: Yes Poor recovery environment: Yes Comorbidities: Yes Lacks judgement: No Patient is meeting Inpatient Rehab admission criteria:: Yes
[~2018-07-26 14:24] MED LIST: ACETAMINOPHEN 325 MG TABLET (FP) PO PRN; IBUPROFEN 400 MG TABLET (FP) PO PRN; LOPERAMIDE HCL 2 MG CAPSULE PO PRN; MAGNESIUM CITRATE 300 ML BOTTLE PO PRN; MAGNESIUM HYDROX 2400MG/30ML ORAL SUSPENSION 30 ML CUP PO PRN; MENTHOL/PHENOL 1 EACH UD MM PRN; P-EPHED 60MG/TRIPROLIDI 2.5MG TABLET PO PRN; guaiFENesin/D-METHORPHAN HB 10 ML UNIT-DOSE CUPS PO PRN
[2018-07-26] MEDS: MAG HYDROX/AL HYDROX/SIMETH 30 ML UNIT-DOSE CUP PO PRN (15:43)
[2018-07-26] MEDS: THIAMINE HCL 100 MG TABLET (FP) PO SCH (21:14)
[2018-07-26] MEDS: MELATONIN 5 MG TABLETS PO PRN (21:14)
[2018-07-27] MEDS: PRENATAL VITAMINS W/ FOLIC ACID TABLET (FP) PO SCH (09:45)
[2018-07-27] MEDS: THIAMINE HCL 100 MG TABLET (FP) PO SCH (21:14)
[2018-07-27] MEDS: MELATONIN 5 MG TABLETS PO PRN (21:14)
[2018-07-28] MEDS: PRENATAL VITAMINS W/ FOLIC ACID TABLET (FP) PO SCH (09:53)
[2018-07-28] MEDS: MELATONIN 5 MG TABLETS PO PRN (21:01)
[2018-07-28] MEDS: THIAMINE HCL 100 MG TABLET (FP) PO SCH (21:01)
[2018-07-29] MEDS: PRENATAL VITAMINS W/ FOLIC ACID TABLET (FP) PO SCH (09:45)
[2018-07-29] MEDS: MELATONIN 5 MG TABLETS PO PRN (21:12)
[2018-07-29] MEDS: THIAMINE HCL 100 MG TABLET (FP) PO SCH (21:12)
[2018-07-30] MEDS: PRENATAL VITAMINS W/ FOLIC ACID TABLET (FP) PO SCH (09:28)
[2018-07-30] MEDS: MAG HYDROX/AL HYDROX/SIMETH 30 ML UNIT-DOSE CUP PO PRN (17:04)
[2018-07-30] MEDS: MELATONIN 5 MG TABLETS PO PRN (21:19)
[2018-07-30] MEDS: THIAMINE HCL 100 MG TABLET (FP) PO SCH (21:20)
[2018-07-31] MEDS ORDERED: BUPRENORPHINE/NALOXONE 8 MG/2 MG FILM PACKET ONE (09:17)
[2018-07-31] MEDS: PRENATAL VITAMINS W/ FOLIC ACID TABLET (FP) PO SCH (10:08)
[2018-07-31] MEDS: MELATONIN 5 MG TABLETS PO PRN (21:02)
[2018-07-31] MEDS: THIAMINE HCL 100 MG TABLET (FP) PO SCH (21:02)
[2018-08-01] MEDS: PRENATAL VITAMINS W/ FOLIC ACID TABLET (FP) PO SCH (09:50)
[2018-08-01] MEDS: MAG HYDROX/AL HYDROX/SIMETH 30 ML UNIT-DOSE CUP PO PRN (16:05)
[2018-08-01] MEDS: MELATONIN 5 MG TABLETS PO PRN (21:08)
[2018-08-01] MEDS: THIAMINE HCL 100 MG TABLET (FP) PO SCH (21:08)
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
[2018-08-02] MEDS: PRENATAL VITAMINS W/ FOLIC ACID TABLET (FP) PO SCH (09:45)
[2018-08-02] MEDS: CYCLOBENZAPRINE HCL 10 MG TABLET (FP) PO SCH ×2 (13:28→21:01)
[2018-08-02] MEDS: LIDOCAINE 5% TOPICAL PATCH TP SCH (13:29)
[2018-08-02] MEDS: THIAMINE HCL 100 MG TABLET (FP) PO SCH (21:01)
[2018-08-02] MEDS: LIDOCAINE PATCH REMOVAL MC SCH (21:02)
[2018-08-02] MEDS: MELATONIN 5 MG TABLETS PO PRN (21:02)
[2018-08-03] MEDS: CYCLOBENZAPRINE HCL 10 MG TABLET (FP) PO SCH ×3 (06:38→21:45)
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
[2018-08-03] MEDS: LIDOCAINE 5% TOPICAL PATCH TP SCH (09:56)
[2018-08-03] MEDS: PRENATAL VITAMINS W/ FOLIC ACID TABLET (FP) PO SCH (09:56)
--- NOTE | 2018-08-03 14:39 | CONSULT ---
[facility] Psychiatric Consult - Data Date of interview: 08/03/18 Admission source: 3N Identifying data: Mr Israel alcaraza 68 years old single Black male, father of 2 children, unemployed on SSI, homeless seeking rehab treatment for alcohol and cocaine Substance Abuse History: Reports history of alcohol and cocaine use. Refer to addiction counselor's summary for further information Medical History: Significant for hypertension, alcohol-related seizures, bronchial asthma, hepatitis C, history of treatment for chlamydia/gonorrhea and orthosurgery for right hip replacement in 2014 and fracture right arm in 2010. Psychiatric History: Patient reports that his first psychiatric contact was a brief admission at [place] for behavioral issues during childhood. Claims that he was diagnosed with ADHD and prescribed medication which he took for about a year. While in jail for 15 years for murder in [place], he reports seeing psychiatrist and diagnosed with Schizophrenia. Reports no psychiatric treament since released on 09/04/13. At present, denies experiencing psychotic symptoms, S/H ideations Physical/Sexual Abuse/Trauma History: Reports no history of physical or sexual abuse, and no history of service. Additional Comment: Reports multiple previous arrests including 3 felony convictions. Served 15 years in jail once for attempted murder. Denies being on parole/ probation at present Mental Status Exam - Mental Status Exam Alert and Oriented to: Time, Place, Person Cognitive Function: Fair Patient Appearance: Well Groomed Mood: Hopeful, Euthymic Affect: Appropriate Patient Behavior: Cooperative Speech Pattern: Clear Voice Loudness: Normal Thought Process: Intact, Goal Oriented Thought Disorder: Not Present Hallucinations: Denies Suicidal Ideation: Denies Homicidal Ideation: Denies Insight/Judgement: Fair Sleep: Poorly Appetite: Good Muscle strength/Tone: Normal Gait/Station: Normal Psychiatric Findings - Problem List ([place] 1, 2,3) (1) Schizophrenia, residual type Current Visit: No Status: Chronic (2) Substance-induced sleep disorder Current Visit: Yes Status: Acute (3) Alcohol dependence Current Visit: Yes Status: Acute (4) Cocaine dependence Current Visit: No Status: Acute Qualifiers: Substance use status: uncomplicated Qualified Code(s): F14.20 - Cocaine dependence, uncomplicated (5) Nicotine dependence Current Visit: Yes Status: Acute (6) Asthma Current Visit: No Status: Chronic Qualifiers: Asthma severity: mild Asthma persistence: intermittent Asthma complication type: with status asthmaticus Qualified Code(s): J45.22 - Mild intermittent asthma with status asthmaticus (7) Essential hypertension Current Visit: No Status: Chronic (8) HLD (hyperlipidemia) Current Visit: No Status: Chronic Qualifiers: Hyperlipidemia type: unspecified Qualified Code(s): E78.5 - Hyperlipidemia , unspecified (9) History of hepatitis C Current Visit: No Status: Chronic (10) Status post right hip replacement Current Visit: No Status: Chronic - Initial Treatment Plan Initial Treatment Plan: 1) Start Melatonin 10 mg po HS prn for insomnia. 2) Continue inpatient rehabilitation
[2018-08-03] MEDS: THIAMINE HCL 100 MG TABLET (FP) PO SCH (21:45)
[2018-08-03] MEDS: LIDOCAINE PATCH REMOVAL MC SCH (23:31)
[2018-08-04] MEDS: CYCLOBENZAPRINE HCL 10 MG TABLET (FP) PO SCH ×3 (06:35→21:07)
[2018-08-04] MEDS: PRENATAL VITAMINS W/ FOLIC ACID TABLET (FP) PO SCH (10:03)
[2018-08-04] MEDS: LIDOCAINE 5% TOPICAL PATCH TP SCH (10:03)
[2018-08-04] MEDS: THIAMINE HCL 100 MG TABLET (FP) PO SCH (21:07)
[2018-08-04] MEDS: MELATONIN 5 MG TABLETS PO PRN (21:07)
[2018-08-04] MEDS: LIDOCAINE PATCH REMOVAL MC SCH (21:08)
[2018-08-05] MEDS: CYCLOBENZAPRINE HCL 10 MG TABLET (FP) PO SCH ×3 (06:07→21:58)
[2018-08-05] MEDS: PRENATAL VITAMINS W/ FOLIC ACID TABLET (FP) PO SCH (10:37)
[2018-08-05] MEDS: LIDOCAINE 5% TOPICAL PATCH TP SCH (10:38)
[2018-08-05] MEDS: MELATONIN 5 MG TABLETS PO PRN (21:58)
[2018-08-05] MEDS: THIAMINE HCL 100 MG TABLET (FP) PO SCH (21:58)
[2018-08-05] MEDS: LIDOCAINE PATCH REMOVAL MC SCH (22:14)
[2018-08-06] MEDS: CYCLOBENZAPRINE HCL 10 MG TABLET (FP) PO SCH ×3 (06:05→21:12)
[2018-08-06] MEDS: LIDOCAINE 5% TOPICAL PATCH TP SCH (09:32)
[2018-08-06] MEDS: PRENATAL VITAMINS W/ FOLIC ACID TABLET (FP) PO SCH (09:32)
[2018-08-06] MEDS: THIAMINE HCL 100 MG TABLET (FP) PO SCH (21:11)
[2018-08-06] MEDS: LIDOCAINE PATCH REMOVAL MC SCH (21:11)
[2018-08-06] MEDS: MELATONIN 5 MG TABLETS PO PRN (21:12)
[2018-08-07] MEDS: CYCLOBENZAPRINE HCL 10 MG TABLET (FP) PO SCH ×3 (06:01→21:56)
[2018-08-07] MEDS: LIDOCAINE 5% TOPICAL PATCH TP SCH (10:22)
[2018-08-07] MEDS: PRENATAL VITAMINS W/ FOLIC ACID TABLET (FP) PO SCH (10:22)
[2018-08-07] MEDS ORDERED: PT OWN MED DRAWER 7, Y5N ONE (19:46)
[2018-08-07] MEDS: LIDOCAINE PATCH REMOVAL MC SCH (21:56)
[2018-08-07] MEDS: THIAMINE HCL 100 MG TABLET (FP) PO SCH (21:56)
[2018-08-08] MEDS: CYCLOBENZAPRINE HCL 10 MG TABLET (FP) PO SCH ×3 (06:14→21:08)
[2018-08-08] MEDS: LIDOCAINE 5% TOPICAL PATCH TP SCH (10:17)
[2018-08-08] MEDS: PRENATAL VITAMINS W/ FOLIC ACID TABLET (FP) PO SCH (10:17)
[2018-08-08] MEDS: LIDOCAINE PATCH REMOVAL MC SCH (21:08)
[2018-08-08] MEDS: THIAMINE HCL 100 MG TABLET (FP) PO SCH (21:08)
[2018-08-08] MEDS: MELATONIN 5 MG TABLETS PO PRN (21:09)
[2018-08-09] MEDS: CYCLOBENZAPRINE HCL 10 MG TABLET (FP) PO SCH ×3 (06:22→21:53)
[2018-08-09] MEDS: LIDOCAINE 5% TOPICAL PATCH TP SCH (10:20)
[2018-08-09] MEDS: PRENATAL VITAMINS W/ FOLIC ACID TABLET (FP) PO SCH (10:20)
[2018-08-09] MEDS: MELATONIN 5 MG TABLETS PO PRN (21:53)
[2018-08-09] MEDS: LIDOCAINE PATCH REMOVAL MC SCH (21:53)
[2018-08-09] MEDS: THIAMINE HCL 100 MG TABLET (FP) PO SCH (21:53)
[2018-08-10] MEDS: CYCLOBENZAPRINE HCL 10 MG TABLET (FP) PO SCH ×3 (06:14→21:15)
[2018-08-10] MEDS: LIDOCAINE 5% TOPICAL PATCH TP SCH (09:54)
[2018-08-10] MEDS: PRENATAL VITAMINS W/ FOLIC ACID TABLET (FP) PO SCH (09:54)
[2018-08-10] MEDS: THIAMINE HCL 100 MG TABLET (FP) PO SCH (21:14)
[2018-08-10] MEDS: MELATONIN 5 MG TABLETS PO PRN (21:15)
[2018-08-10] MEDS: LIDOCAINE PATCH REMOVAL MC SCH (21:16)
[2018-08-11] MEDS: CYCLOBENZAPRINE HCL 10 MG TABLET (FP) PO SCH ×3 (06:30→21:22)
[2018-08-11] MEDS: LIDOCAINE 5% TOPICAL PATCH TP SCH (10:11)
[2018-08-11] MEDS: PRENATAL VITAMINS W/ FOLIC ACID TABLET (FP) PO SCH (10:11)
[2018-08-11] MEDS: LIDOCAINE PATCH REMOVAL MC SCH (21:21)
[2018-08-11] MEDS: THIAMINE HCL 100 MG TABLET (FP) PO SCH (21:22)
[2018-08-12] MEDS: CYCLOBENZAPRINE HCL 10 MG TABLET (FP) PO SCH ×3 (06:50→21:17)
[2018-08-12] MEDS: PRENATAL VITAMINS W/ FOLIC ACID TABLET (FP) PO SCH (09:49)
[2018-08-12] MEDS: LIDOCAINE 5% TOPICAL PATCH TP SCH (09:49)
[2018-08-12] MEDS: LIDOCAINE PATCH REMOVAL MC SCH (21:17)
[2018-08-12] MEDS: THIAMINE HCL 100 MG TABLET (FP) PO SCH (21:17)
[2018-08-12] MEDS: MELATONIN 5 MG TABLETS PO PRN (21:17)
[2018-08-13] MEDS: CYCLOBENZAPRINE HCL 10 MG TABLET (FP) PO SCH ×3 (06:17→21:01)
[2018-08-13] MEDS: LIDOCAINE 5% TOPICAL PATCH TP SCH (09:58)
[2018-08-13] MEDS: PRENATAL VITAMINS W/ FOLIC ACID TABLET (FP) PO SCH (09:58)
[2018-08-13] MEDS: LIDOCAINE PATCH REMOVAL MC SCH (21:01)
[2018-08-13] MEDS: MELATONIN 5 MG TABLETS PO PRN (21:01)
[2018-08-13] MEDS: THIAMINE HCL 100 MG TABLET (FP) PO SCH (21:01)
[2018-08-14] MEDS: CYCLOBENZAPRINE HCL 10 MG TABLET (FP) PO SCH ×3 (06:11→21:30)
[2018-08-14] MEDS: PRENATAL VITAMINS W/ FOLIC ACID TABLET (FP) PO SCH (09:46)
[2018-08-14] MEDS: LIDOCAINE 5% TOPICAL PATCH TP SCH (09:47)
[2018-08-14] MEDS: THIAMINE HCL 100 MG TABLET (FP) PO SCH (21:30)
[2018-08-14] MEDS: MELATONIN 5 MG TABLETS PO PRN (21:30)
[2018-08-14] MEDS: LIDOCAINE PATCH REMOVAL MC SCH (21:31)
[2018-08-15] MEDS: CYCLOBENZAPRINE HCL 10 MG TABLET (FP) PO SCH ×3 (05:48→21:09)
[2018-08-15] MEDS: LIDOCAINE 5% TOPICAL PATCH TP SCH (10:02)
[2018-08-15] MEDS: PRENATAL VITAMINS W/ FOLIC ACID TABLET (FP) PO SCH (10:02)
[2018-08-15] MEDS: THIAMINE HCL 100 MG TABLET (FP) PO SCH (21:09)
[2018-08-15] MEDS: MELATONIN 5 MG TABLETS PO PRN (21:09)
[2018-08-15] MEDS: LIDOCAINE PATCH REMOVAL MC SCH (21:09)
[2018-08-16] MEDS: CYCLOBENZAPRINE HCL 10 MG TABLET (FP) PO SCH ×3 (06:04→21:35)
[2018-08-16] MEDS: PRENATAL VITAMINS W/ FOLIC ACID TABLET (FP) PO SCH (10:11)
[2018-08-16] MEDS: LIDOCAINE 5% TOPICAL PATCH TP SCH (10:11)
[2018-08-16] MEDS: THIAMINE HCL 100 MG TABLET (FP) PO SCH (21:35)
[2018-08-16] MEDS: LIDOCAINE PATCH REMOVAL MC SCH (21:35)
[2018-08-16] MEDS: MELATONIN 5 MG TABLETS PO PRN (21:35)
[2018-08-17] MEDS: CYCLOBENZAPRINE HCL 10 MG TABLET (FP) PO SCH ×3 (06:11→21:11)
[2018-08-17] MEDS: PRENATAL VITAMINS W/ FOLIC ACID TABLET (FP) PO SCH (10:17)
[2018-08-17] MEDS: LIDOCAINE 5% TOPICAL PATCH TP SCH (10:18)
--- NOTE | 2018-08-17 14:45 | PN ---
S Progress Note Note: DISCHARGE REHAB NOTE: PATIENT SCHEDULED FOR DISCHARGE FROM REHAB TOMORROW, 08/18/18. PATIENT REPORTS ACCOMPLISHING ALL REHAB GOALS AND IS SCHEDULED FOR AFTER CARE AT [facility]. PATIENT IS MEDICALLY STABLE AT THIS TIME AND DENIES SI/HI. PATIENT HAS ACTIVE PRESCRIPTIONS FOR SYMBICORT AND AMLODIPINE SENT TO PREFERRED PHARMACY 07/25/18. PATIENT ENCOURAGED TO ATTEND GROUP MEETINGS TO PREVENT RELAPSE AND ENCOURAGED TO FOLLOW UP WITH PCP WITHIN ONE WEEK OF DISCHARGE. Vital Signs Temperature 97.5 F L 08/17/18 06:31 Pulse Rate 108 H 08/17/18 06:31 Respiratory Rate 20 08/17/18 06:31 Blood Pressure 114/78 08/17/18 06:31 O2 Sat by Pulse Oximetry (%)
[2018-08-17] MEDS: THIAMINE HCL 100 MG TABLET (FP) PO SCH (21:11)
[2018-08-17] MEDS: LIDOCAINE PATCH REMOVAL MC SCH (21:11)
[2018-08-17] MEDS: MELATONIN 5 MG TABLETS PO PRN (21:11)
[2018-08-18] MEDS: CYCLOBENZAPRINE HCL 10 MG TABLET (FP) PO SCH (06:32)
[2018-08-18 06:57] VITALS: BP 139/95; PULSE 95; TEMP 97.4
[2018-08-18] MEDS: PRENATAL VITAMINS W/ FOLIC ACID TABLET (FP) PO SCH (09:41)
[2018-08-18] MEDS: LIDOCAINE 5% TOPICAL PATCH TP SCH (09:41)
== END 2018-08-18 09:45 | disposition home or self-care (01) | DRG 895 ==
LOC: YASAS 14:24 → Y3W 14:25
PROVIDERS: ADMIT Neuromusculoskeletal Medicine & OMM; ATTEND Neuromusculoskeletal Medicine & OMM
PROC: HZ42ZZZ Group Counseling for Substance Abuse Treatment, Cognitive-Behavioral (ICD-10-PCS; principal; 2018-07-26)
DX: F10.20 Alcohol dependence, uncomplicated (principal); F14.20 Cocaine dependence, uncomplicated; F19.282 Other psychoactive substance dependence with psychoactive substance-induced sleep disorder; F20.5 Residual schizophrenia; J45.22 Mild intermittent asthma with status asthmaticus; F17.210 Nicotine dependence, cigarettes, uncomplicated; I10 Essential (primary) hypertension; E78.5 Hyperlipidemia, unspecified; Z86.19 Personal history of other infectious and parasitic diseases; Z96.641 Presence of right artificial hip joint
CPT/HCPCS: 82962

== ENCOUNTER 2019-01-22 19:56 | Inpatient (IN) | payer OTHER ==
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
[2019-01-23] MEDS ORDERED: guaiFENesin 200 MG/10 ML 10 ML UNIT-DOSE CUPS PO PRN (00:50)
[2019-01-23] MEDS ORDERED: IBUPROFEN 400 MG TABLET (FP) PO PRN (00:50)
[2019-01-23] MEDS ORDERED: DICYCLOMINE HCL 10 MG CAPSULE PO PRN (00:50)
[2019-01-23] MEDS ORDERED: NICOTINE POLACRILEX 2 MG GUM BUC PRN (00:50)
[2019-01-23] MEDS ORDERED: ACETAMINOPHEN 325 MG TABLET (FP) PO PRN ×2 (00:50)
[2019-01-23] MEDS ORDERED: MENTHOL/PHENOL 1 EACH UD MM PRN (00:50)
[2019-01-23] MEDS ORDERED: MAGNESIUM HYDROX 2400MG/30ML ORAL SUSPENSION 30 ML CUP PO PRN (00:50)
[2019-01-23] MEDS ORDERED: P-EPHED 60MG/TRIPROLIDI 2.5MG TABLET PO PRN (00:50)
[2019-01-23] MEDS ORDERED: METHOCARBAMOL 500 MG TABLET PO PRN (00:50)
[2019-01-23] MEDS ORDERED: MAGNESIUM CITRATE 300 ML BOTTLE PO PRN (00:50)
[2019-01-23] MEDS ORDERED: ONDANSETRON *ODT* 4 MG TABLET SL PRN (00:50)
[2019-01-23] MEDS ORDERED: MAG HYDROX/AL HYDROX/SIMETH 30 ML UNIT-DOSE CUP PO PRN (00:50)
[2019-01-23] MEDS ORDERED: BISMUTH SUBSALICYLATE 524 MG/30 ML UD PO PRN (00:50)
[2019-01-23] MEDS ORDERED: hydrOXYzine PAMOATE 25 MG CAPSULE (FP) PO PRN (00:50)
[2019-01-23] MEDS ORDERED: chlordiazePOXIDE HCL 10 MG CAPSULE PO PRN (00:50)
[2019-01-23] MEDS ORDERED: chlordiazePOXIDE 5 MG CAPSULE ONE ×2 (01:57→02:02)
[2019-01-23] MEDS: chlordiazePOXIDE HCL 25 MG CAPSULE PO SCH ×3 (05:38→22:12)
[2019-01-23 11:03] LABS: HEMATOCRIT 38.2 % (35.4-49); HEMOGLOBIN 13.2 GM/dL (11.7-16.9); MCH 34.9 pg (25.7-33.7); MCHC 34.4 g/dl (32.0-35.9); MEAN CELL VOLUME 101.3 fl (80-96); MEAN PLT VOLUME 8.8 fl (7.5-11.1); PLATELET COUNT 150 K/MM3 (134-434); RBC 3.77 M/mm3 (4.00-5.60); RDW 14.4 % (11.9-15.9)
[2019-01-23 11:06] LABS: ALBUMIN 3.5 g/dl (3.4-5.0); BILIRUBIN,TOTAL 1.2 mg/dL (0.2-1); BLOOD UREA NITROGEN 19.5 mg/dL (7-18); CALCIUM 9.1 mg/dL (8.5-10.1); CREATININE 0.8 mg/dL (0.55-1.3); TOT PROT 8.1 g/dl (6.4-8.2)
[2019-01-23] MEDS: NICOTINE 14 MG/24 HOURS TOPICAL PATCH TD SCH (11:09)
[2019-01-23] MEDS: PRENATAL VITAMINS W/ FOLIC ACID TABLET (FP) PO SCH (11:09)
--- NOTE | 2019-01-23 11:25 | PN ---
[facility] CIWA - CIWA Score Nausea/Vomitin-No Nausea/No Vomiting Muscle Tremors: 2 Anxiety: 2 Agitation: 3 Paroxysmal Sweats: 3 Orientation: 0-Oriented Tacttile Disturbances: 0-None Auditory Disturbances: 0-None Visual Disturbances: 0-None Headache: 0-None Present CIWA-Ar Total Score: 10 S Progress Note (SOAP) Subjective: sweats shakes interrupted sleep tired Objective: 01/23/19 11:24 Vital Signs Temperature 97.7 F 01/23/19 09:32 Pulse Rate 88 01/23/19 09:32 Respiratory Rate 18 01/23/19 09:32 Blood Pressure 124/71 01/23/19 09:32 O2 Sat by Pulse Oximetry (%) Laboratory Tests 01/23/19 01/23/19 07:00 07:00 WBC 5.0 RBC 3.77 L Hgb 13.2 Hct 38.2 MCV 101.3 H MCH 34.9 H MCHC 34.4 RDW 14.4 Plt Count 150 MPV 8.8 Sodium 141 Potassium 4.0 Chloride 106 Carbon Dioxide 29 Anion Gap 6 L BUN 19.5 H Creatinine 0.8 Est GFR (CKD-EPI)AfAm 107.13 Est GFR (CKD-EPI)NonAf 92.44 Random Glucose 97 Calcium 9.1 Total Bilirubin 1.2 H AST 164 H ALT 114 H Alkaline Phosphatase 119 H Total Protein 8.1 Albumin 3.5 elevated ast &alt; repeat labs d/c tylenol aaox3 ambulating no acute distress Assessment: 01/23/19 11:25 withdrawal sx Plan: continue detox increase fluids
--- NOTE | 2019-01-23 11:49 | CONSULT ---
[facility] Psychiatric Consult - Data Date of interview: 01/23/19 Admission source: Probation Identifying data: Mr Wood is a 68 years old single Black male, father of 3 children, unemployed receiving SSI, homeless seeking rehab treatment for alcohol and cocaine Substance Abuse History: Reports history of alcohol and cocaine use. Refer to addiction counselor's summary for further information Medical History: Significant for hypertension, alcohol-related seizures, bronchial asthma, hepatitis C, PPD+, history of treatment for chlamydia/ gonorrhea and orthosurgery for right hip replacement in 1994 and fracture right arm in 2010. smokes 6 cigarettes daily Psychiatric History: Patient reports that his first psychiatric contact was a brief admission at [place] for behavioral issues during childhood. Claims that he was diagnosed with ADHD and prescribed medication which he took for about a year. While in halfway for 15 years for attempted murder in [place], he reports seeing psychiatrist who diagnosed him with Schizophrenia and prescribed him psychotropic medications. Reports that since his release on 08/31/13, his only psychiatric contacts occured during admission to substance abuse inpatient programs. Denies previous psychiatric hospitalization or suicidal attempt. At present, denies experiencing psychotic symptoms, S/H ideations. However, reports sleeping poorly Physical/Sexual Abuse/Trauma History: Reports no history of physical or sexual abuse, and no history of service. Additional Comment: Reports multiple previous arrests including 3 felony convictions. Served 15 years in halfway once for attempted murder. Denies being on parole/ probation at present Mental Status Exam - Mental Status Exam Alert and Oriented to: Time, Place, Person Cognitive Function: Fair Patient Appearance: Well Groomed Mood: Hopeful, Euthymic Patient Behavior: Cooperative Speech Pattern: Clear Voice Loudness: Normal Thought Process: Intact, Goal Oriented Thought Disorder: Not Present Hallucinations: Denies Suicidal Ideation: Denies Homicidal Ideation: Denies Insight/Judgement: Poor Sleep: Poorly Appetite: Good Muscle strength/Tone: Normal Gait/Station: Normal Psychiatric Findings - Problem List ([place] 1, 2,3) (1) Schizophrenia, residual type Current Visit: No Status: Chronic (2) Substance-induced sleep disorder Current Visit: Yes Status: Acute (3) Alcohol dependence with uncomplicated withdrawal Current Visit: No Status: Acute (4) Cocaine dependence Current Visit: No Status: Acute Qualifiers: Substance use status: uncomplicated Qualified Code(s): F14.20 - Cocaine dependence, uncomplicated (5) Nicotine dependence Current Visit: No Status: Chronic (6) Essential hypertension Current Visit: No Status: Chronic (7) HLD (hyperlipidemia) Current Visit: No Status: Chronic Qualifiers: Hyperlipidemia type: unspecified Qualified Code(s): E78.5 - Hyperlipidemia , unspecified (8) History of hepatitis C Current Visit: No Status: Chronic (9) PPD positive Current Visit: No Status: Chronic (10) Seizure Current Visit: No Status: Resolved Comment: History. - Initial Treatment Plan Initial Treatment Plan: 1) Start Melatonin 5 mg po HS prn for insomia. 2) Continue inpatient detoxification
[2019-01-23] MEDS: amLODIPine BESYLATE 5 MG TABLET (FP) PO SCH (13:42)
[2019-01-23] MEDS: THIAMINE HCL 100 MG TABLET (FP) PO SCH (22:12)
[2019-01-24] MEDS: chlordiazePOXIDE 5 MG CAPSULE PO SCH ×3 (06:14→21:49)
[2019-01-24] MEDS: PRENATAL VITAMINS W/ FOLIC ACID TABLET (FP) PO SCH (10:15)
[2019-01-24] MEDS: amLODIPine BESYLATE 5 MG TABLET (FP) PO SCH (10:15)
[2019-01-24] MEDS: NICOTINE 14 MG/24 HOURS TOPICAL PATCH TD SCH (10:16)
--- NOTE | 2019-01-24 10:28 | PN ---
[facility] CIWA - CIWA Score Nausea/Vomitin-No Nausea/No Vomiting Muscle Tremors: 3 Anxiety: 2 Agitation: 2 Paroxysmal Sweats: 2 Orientation: 0-Oriented Tacttile Disturbances: 0-None Auditory Disturbances: 0-None Visual Disturbances: 0-None Headache: 0-None Present CIWA-Ar Total Score: 9 S Progress Note (SOAP) Subjective: sweats mild shakes interrupted sleep body aches Objective: 01/24/19 10:27 Vital Signs Temperature 97.7 F 01/24/19 09:48 Pulse Rate 89 01/24/19 09:48 Respiratory Rate 18 01/24/19 09:48 Blood Pressure 134/76 01/24/19 09:48 O2 Sat by Pulse Oximetry (%) Laboratory Tests 01/23/19 01/23/19 01/23/19 06:00 07:00 07:00 WBC 5.0 RBC 3.77 L Hgb 13.2 Hct 38.2 MCV 101.3 H MCH 34.9 H MCHC 34.4 RDW 14.4 Plt Count 150 MPV 8.8 Sodium 141 Potassium 4.0 Chloride 106 Carbon Dioxide 29 Anion Gap 6 L BUN 19.5 H Creatinine 0.8 Est GFR (CKD-EPI)AfAm 107.13 Est GFR (CKD-EPI)NonAf 92.44 Random Glucose 97 Calcium 9.1 Total Bilirubin 1.2 H AST 164 H ALT 114 H Alkaline Phosphatase 119 H Total Protein 8.1 Albumin 3.5 RPR Titer HIV 1&2 Ag/Ab, 4th Gen Non reactive HIV 1&2 Antibody Screen HIV P24 Antigen 01/23/19 01/23/19 07:00 07:00 WBC RBC Hgb Hct MCV MCH MCHC RDW Plt Count MPV Sodium Potassium Chloride Carbon Dioxide Anion Gap BUN Creatinine Est GFR (CKD-EPI)AfAm Est GFR (CKD-EPI)NonAf Random Glucose Calcium Total Bilirubin AST ALT Alkaline Phosphatase Total Protein Albumin RPR Titer Nonreactive HIV 1&2 Ag/Ab, 4th Gen HIV 1&2 Antibody Screen Cancelled HIV P24 Antigen Cancelled repeated labs pending aaox3 lying in bed no acute distress Assessment: 01/24/19 10:28 withdrawal sx Plan: continue detox increase fluids pending labs
[2019-01-24 11:12] LABS: ALBUMIN 2.8 g/dl (3.4-5.0); BILIRUBIN,TOTAL 1.1 mg/dL (0.2-1); BLOOD UREA NITROGEN 13.1 mg/dL (7-18); CALCIUM 8.8 mg/dL (8.5-10.1); CREATININE 0.7 mg/dL (0.55-1.3); TOT PROT 6.7 g/dl (6.4-8.2)
[2019-01-24 12:14] LABS: BASO % 0.5 % (0-2.0); EOS % 3.5 % (0-4.5); HEMATOCRIT 34.5 % (35.4-49); HEMOGLOBIN 11.8 GM/dL (11.7-16.9); LYMPH % 35.3 % (8-40); MCH 34.9 pg (25.7-33.7); MCHC 34.2 g/dl (32.0-35.9); MONO % 14.5 % (3.8-10.2); NEUT % 46.2 % (42.8-82.8); PLATELET COUNT 146 K/MM3 (134-434); RBC 3.39 M/mm3 (4.00-5.60); RDW 14.7 % (11.9-15.9); WHITE BLOOD COUNT 4.3 K/mm3 (4.0-10.0)
[2019-01-24 14:00] LABS: EPI CELLS 0.6 /HPF (0-5/HPF); HYALINE CASTS 1 /lpf (0-8); PH,URINE 6.5 (5.0-8.0); URINE APPEARANCE CLEAR; URINE BACTERIA 11.8 /hpf (NEGATIVE); URINE BILIRUBIN NEGATIVE (NEGATIVE); URINE COLOR YELLOW; URINE GLUCOSE (UA) NEGATIVE (NEGATIVE); URINE KETONE NEGATIVE (NEGATIVE); URINE LEUK ESTERASE TRACE (NEGATIVE); URINE NITRITE NEGATIVE (NEGATIVE); URINE PROTEIN NEGATIVE (NEGATIVE); URINE RBC 1 /hpf (0-4); URINE WBC 1 /hpf (0-5)
[2019-01-24] MEDS: THIAMINE HCL 100 MG TABLET (FP) PO SCH (21:49)
[2019-01-24] MEDS: MELATONIN 5 MG TABLETS PO PRN (21:49)
[2019-01-25] MEDS ORDERED: chlordiazePOXIDE HCL 10 MG CAPSULE PO PRN
[2019-01-25] MEDS: chlordiazePOXIDE HCL 10 MG CAPSULE PO SCH ×3 (05:43→22:14)
[2019-01-25] MEDS: amLODIPine BESYLATE 5 MG TABLET (FP) PO SCH (10:16)
[2019-01-25] MEDS: NICOTINE 14 MG/24 HOURS TOPICAL PATCH TD SCH (10:17)
[2019-01-25] MEDS: PRENATAL VITAMINS W/ FOLIC ACID TABLET (FP) PO SCH (10:17)
--- NOTE | 2019-01-25 12:11 | PN ---
S CIWA - CIWA Score Nausea/Vomitin-No Nausea/No Vomiting Muscle Tremors: 2 Anxiety: 1-Mildly Anxious Agitation: 1-Slight > Activity Paroxysmal Sweats: 1-Minimal Palms Moist Orientation: 0-Oriented Tacttile Disturbances: 0-None Auditory Disturbances: 0-None Visual Disturbances: 0-None Headache: 0-None Present CIWA-Ar Total Score: 5 [facility] Progress Note (SOAP) Subjective: sweats tired Objective: 01/25/19 12:10 Vital Signs Temperature 97.9 F 01/25/19 09:31 Pulse Rate 87 01/25/19 09:31 Respiratory Rate 18 01/25/19 09:31 Blood Pressure 133/89 01/25/19 09:31 O2 Sat by Pulse Oximetry (%) Laboratory Tests 01/23/19 01/23/19 01/23/19 06:00 07:00 07:00 WBC 5.0 RBC 3.77 L Hgb 13.2 Hct 38.2 MCV 101.3 H MCH 34.9 H MCHC 34.4 RDW 14.4 Plt Count 150 MPV 8.8 Absolute Neuts (auto) Neutrophils % Lymphocytes % Monocytes % Eosinophils % Basophils % Nucleated RBC % Sodium 141 Potassium 4.0 Chloride 106 Carbon Dioxide 29 Anion Gap 6 L BUN 19.5 H Creatinine 0.8 Est GFR (CKD-EPI)AfAm 107.13 Est GFR (CKD-EPI)NonAf 92.44 Random Glucose 97 Calcium 9.1 Total Bilirubin 1.2 H AST 164 H ALT 114 H Alkaline Phosphatase 119 H Total Protein 8.1 Albumin 3.5 Urine Color Urine Appearance Urine pH Ur Specific [place] Urine Protein Urine Glucose (UA) Urine Ketones Urine Blood Urine Nitrite Urine Bilirubin Urine Urobilinogen Ur Leukocyte Esterase Urine WBC (Auto) Urine RBC (Auto) Urine Casts (Auto) U Epithel Cells (Auto) Urine Bacteria (Auto) RPR Titer HIV 1&2 Ag/Ab, 4th Gen Non reactive HIV 1&2 Antibody Screen HIV P24 Antigen 01/23/19 01/23/19 01/24/19 07:00 07:00 07:00 WBC 4.3 RBC 3.39 L Hgb 11.8 Hct 34.5 L MCV 102.0 H MCH 34.9 H MCHC 34.2 RDW 14.7 Plt Count 146 MPV 9.0 Absolute Neuts (auto) 2.0 Neutrophils % 46.2 Lymphocytes % 35.3 Monocytes % 14.5 H Eosinophils % 3.5 Basophils % 0.5 Nucleated RBC % 0 Sodium Potassium Chloride Carbon Dioxide Anion Gap BUN Creatinine Est GFR (CKD-EPI)AfAm Est GFR (CKD-EPI)NonAf Random Glucose Calcium Total Bilirubin AST ALT Alkaline Phosphatase Total Protein Albumin Urine Color Urine Appearance Urine pH Ur Specific [place] Urine Protein Urine Glucose (UA) Urine Ketones Urine Blood Urine Nitrite Urine Bilirubin Urine Urobilinogen Ur Leukocyte Esterase Urine WBC (Auto) Urine RBC (Auto) Urine Casts (Auto) U Epithel Cells (Auto) Urine Bacteria (Auto) RPR Titer Nonreactive HIV 1&2 Ag/Ab, 4th Gen HIV 1&2 Antibody Screen Cancelled HIV P24 Antigen Cancelled 01/24/19 01/24/19 07:00 09:00 WBC RBC Hgb Hct MCV MCH MCHC RDW Plt Count MPV Absolute Neuts (auto) Neutrophils % Lymphocytes % Monocytes % Eosinophils % Basophils % Nucleated RBC % Sodium 140 Potassium 4.0 Chloride 101 Carbon Dioxide 32 Anion Gap 6 L BUN 13.1 Creatinine 0.7 Est GFR (CKD-EPI)AfAm 113.18 Est GFR (CKD-EPI)NonAf 97.65 Random Glucose 116 H Calcium 8.8 Total Bilirubin 1.1 H AST 121 H ALT 89 H Alkaline Phosphatase 98 Total Protein 6.7 Albumin 2.8 L Urine Color Yellow Urine Appearance Clear Urine pH 6.5 Ur Specific [place] 1.011 Urine Protein Negative Urine Glucose (UA) Negative Urine Ketones Negative Urine Blood Trace Urine Nitrite Negative Urine Bilirubin Negative Urine Urobilinogen 1.0 Ur Leukocyte Esterase Trace Urine WBC (Auto) 1 Urine RBC (Auto) 1 Urine Casts (Auto) 1 U Epithel Cells (Auto) 0.6 Urine Bacteria (Auto) 11.8 RPR Titer HIV 1&2 Ag/Ab, 4th Gen HIV 1&2 Antibody Screen HIV P24 Antigen repeated labs show some improvement aaox3 ambulating no acute distress Assessment: 01/25/19 12:11 mild withdrawal sx Plan: continue detox increase fluids d/c in am
[2019-01-25] MEDS: THIAMINE HCL 100 MG TABLET (FP) PO SCH (22:14)
[2019-01-25] MEDS: MELATONIN 5 MG TABLETS PO PRN (22:14)
[2019-01-26] MEDS ORDERED: chlordiazePOXIDE HCL 10 MG CAPSULE PO ONE (05:00)
--- NOTE | 2019-01-26 09:35 | DS ---
[facility] Detox Discharge Summary Admission Date: 01/23/19 Discharge Date: 01/26/19 - History Present History: Alcohol Dependence, Cannabis Dependence, Cocaine Dependence, Opioid Dependence - Physical Exam Results Vital Signs: Vital Signs Temperature 97.9 F 01/26/19 08:27 Pulse Rate 65 01/26/19 08:27 Respiratory Rate 17 01/26/19 08:27 Blood Pressure 140/79 01/26/19 08:27 O2 Sat by Pulse Oximetry (%) Pertinent Admission Physical Exam Findings: pt arrived in withdrawals Laboratory Tests 01/23/19 01/23/19 01/23/19 06:00 07:00 07:00 WBC 5.0 RBC 3.77 L Hgb 13.2 Hct 38.2 MCV 101.3 H MCH 34.9 H MCHC 34.4 RDW 14.4 Plt Count 150 MPV 8.8 Absolute Neuts (auto) Neutrophils % Lymphocytes % Monocytes % Eosinophils % Basophils % Nucleated RBC % Sodium 141 Potassium 4.0 Chloride 106 Carbon Dioxide 29 Anion Gap 6 L BUN 19.5 H Creatinine 0.8 Est GFR (CKD-EPI)AfAm 107.13 Est GFR (CKD-EPI)NonAf 92.44 Random Glucose 97 Calcium 9.1 Total Bilirubin 1.2 H AST 164 H ALT 114 H Alkaline Phosphatase 119 H Total Protein 8.1 Albumin 3.5 Urine Color Urine Appearance Urine pH Ur Specific [place] Urine Protein Urine Glucose (UA) Urine Ketones Urine Blood Urine Nitrite Urine Bilirubin Urine Urobilinogen Ur Leukocyte Esterase Urine WBC (Auto) Urine RBC (Auto) Urine Casts (Auto) U Epithel Cells (Auto) Urine Bacteria (Auto) RPR Titer HIV 1&2 Ag/Ab, 4th Gen Non reactive HIV 1&2 Antibody Screen HIV P24 Antigen 01/23/19 01/23/19 01/24/19 07:00 07:00 07:00 WBC 4.3 RBC 3.39 L Hgb 11.8 Hct 34.5 L MCV 102.0 H MCH 34.9 H MCHC 34.2 RDW 14.7 Plt Count 146 MPV 9.0 Absolute Neuts (auto) 2.0 Neutrophils % 46.2 Lymphocytes % 35.3 Monocytes % 14.5 H Eosinophils % 3.5 Basophils % 0.5 Nucleated RBC % 0 Sodium Potassium Chloride Carbon Dioxide Anion Gap BUN Creatinine Est GFR (CKD-EPI)AfAm Est GFR (CKD-EPI)NonAf Random Glucose Calcium Total Bilirubin AST ALT Alkaline Phosphatase Total Protein Albumin Urine Color Urine Appearance Urine pH Ur Specific [place] Urine Protein Urine Glucose (UA) Urine Ketones Urine Blood Urine Nitrite Urine Bilirubin Urine Urobilinogen Ur Leukocyte Esterase Urine WBC (Auto) Urine RBC (Auto) Urine Casts (Auto) U Epithel Cells (Auto) Urine Bacteria (Auto) RPR Titer Nonreactive HIV 1&2 Ag/Ab, 4th Gen HIV 1&2 Antibody Screen Cancelled HIV P24 Antigen Cancelled 01/24/19 01/24/19 07:00 09:00 WBC RBC Hgb Hct MCV MCH MCHC RDW Plt Count MPV Absolute Neuts (auto) Neutrophils % Lymphocytes % Monocytes % Eosinophils % Basophils % Nucleated RBC % Sodium 140 Potassium 4.0 Chloride 101 Carbon Dioxide 32 Anion Gap 6 L BUN 13.1 Creatinine 0.7 Est GFR (CKD-EPI)AfAm 113.18 Est GFR (CKD-EPI)NonAf 97.65 Random Glucose 116 H Calcium 8.8 Total Bilirubin 1.1 H AST 121 H ALT 89 H Alkaline Phosphatase 98 Total Protein 6.7 Albumin 2.8 L Urine Color Yellow Urine Appearance Clear Urine pH 6.5 Ur Specific [place] 1.011 Urine Protein Negative Urine Glucose (UA) Negative Urine Ketones Negative Urine Blood Trace Urine Nitrite Negative Urine Bilirubin Negative Urine Urobilinogen 1.0 Ur Leukocyte Esterase Trace Urine WBC (Auto) 1 Urine RBC (Auto) 1 Urine Casts (Auto) 1 U Epithel Cells (Auto) 0.6 Urine Bacteria (Auto) 11.8 RPR Titer HIV 1&2 Ag/Ab, 4th Gen HIV 1&2 Antibody Screen HIV P24 Antigen pt today is aaox3 ambulating no acute distress no s/s of withdrawals - Treatment Hospital Course: Detox Protocol Followed, Detoxed Safely, Responded well, Discharged Condition Good, Rehab Referral Accepted Patient has Accepted a Rehab Referral to: referred to [facility] inpatient rehab. - Medication Discharge Medications: Ambulatory Orders Amlodipine Besylate [Norvasc -] 5 mg PO DAILY #14 tablet 07/25/18 - Diagnosis (1) Substance-induced sleep disorder Current Visit: Yes Status: Acute (2) Alcohol dependence with uncomplicated withdrawal Current Visit: Yes Status: Chronic (3) Cocaine dependence Current Visit: Yes Status: Chronic Qualifiers: Substance use status: uncomplicated Qualified Code(s): F14.20 - Cocaine dependence, uncomplicated (4) Substance-induced sleep disorder Current Visit: No Status: Acute (5) Arthritis Current Visit: Yes Status: Chronic (6) Asthma Current Visit: Yes Status: Chronic Qualifiers: Asthma severity: mild Asthma persistence: intermittent Asthma complication type: with status asthmaticus Qualified Code(s): J45.22 - Mild intermittent asthma with status asthmaticus (7) Cannabis abuse Current Visit: Yes Status: Chronic (8) Depression Current Visit: Yes Status: Chronic (9) Essential hypertension Current Visit: Yes Status: Chronic (10) HLD (hyperlipidemia) Current Visit: Yes Status: Chronic Qualifiers: Hyperlipidemia type: unspecified Qualified Code(s): E78.5 - Hyperlipidemia , unspecified (11) History of hepatitis C Current Visit: No Status: Chronic (12) History of schizophrenia Current Visit: Yes Status: Chronic (13) Insomnia Current Visit: No Status: Chronic (14) Nicotine dependence Current Visit: Yes Status: Chronic Qualifiers: Nicotine product type: cigarettes Substance use status: uncomplicated Qualified Code(s): F17.210 - Nicotine dependence, cigarettes, uncomplicated (15) Opioid dependence Current Visit: Yes Status: Chronic Qualifiers: Substance use status: uncomplicated Qualified Code(s): F11.20 - Opioid dependence, uncomplicated (16) PPD positive Current Visit: No Status: Chronic (17) Status post right hip replacement Current Visit: No Status: Chronic (18) Substance induced mood disorder Current Visit: No Status: Chronic - AMA Did Patient Leave Against Medical Advice: No
[2019-01-26] MEDS: PRENATAL VITAMINS W/ FOLIC ACID TABLET (FP) PO SCH (09:47)
[2019-01-26] MEDS: NICOTINE 14 MG/24 HOURS TOPICAL PATCH TD SCH (09:47)
[2019-01-26] MEDS: amLODIPine BESYLATE 5 MG TABLET (FP) PO SCH (09:47)
[2019-01-26 10:07] VITALS: BP 137/73; PULSE 79; TEMP 97.7
== END 2019-01-26 12:31 | disposition home or self-care (01) | DRG 897 ==
LOC: YASAS 19:56 → Y6N 01-23 00:16
PROVIDERS: ADMIT Surgery; ATTEND Surgery
PROC: HZ2ZZZZ Detoxification Services for Substance Abuse Treatment (ICD-10-PCS; principal; 2019-01-23)
DX: F10.230 Alcohol dependence with withdrawal, uncomplicated (principal); F14.20 Cocaine dependence, uncomplicated; F11.20 Opioid dependence, uncomplicated; F19.282 Other psychoactive substance dependence with psychoactive substance-induced sleep disorder; F20.5 Residual schizophrenia; F12.10 Cannabis abuse, uncomplicated; F17.210 Nicotine dependence, cigarettes, uncomplicated; F19.24 Other psychoactive substance dependence with psychoactive substance-induced mood disorder; F32.9 Major depressive disorder, single episode, unspecified; I10 Essential (primary) hypertension; J45.20 Mild intermittent asthma, uncomplicated; M19.90 Unspecified osteoarthritis, unspecified site; E78.5 Hyperlipidemia, unspecified; Z86.19 Personal history of other infectious and parasitic diseases; G47.00 Insomnia, unspecified; R76.11 Nonspecific reaction to tuberculin skin test without active tuberculosis; Z86.69 Personal history of other diseases of the nervous system and sense organs; Z96.641 Presence of right artificial hip joint; Z87.438 Personal history of other diseases of male genital organs
CPT/HCPCS: 36415; 80053; 81003; 85025; 85027; 86593; 87389

== ENCOUNTER 2019-01-29 16:43 | Inpatient (IN) | payer OTHER ==
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
[2019-01-30] MEDS ORDERED: P-EPHED 60MG/TRIPROLIDI 2.5MG TABLET PO PRN (16:11)
[2019-01-30] MEDS ORDERED: NICOTINE POLACRILEX 2 MG GUM BC PRN (16:11)
[2019-01-30] MEDS ORDERED: MAGNESIUM HYDROX 2400MG/30ML ORAL SUSPENSION 30 ML CUP PO PRN (16:11)
[2019-01-30] MEDS ORDERED: MAGNESIUM CITRATE 300 ML BOTTLE PO PRN (16:11)
[2019-01-30] MEDS ORDERED: MENTHOL/PHENOL 1 EACH UD MM PRN (16:11)
[2019-01-30] MEDS ORDERED: ACETAMINOPHEN 325 MG TABLET (FP) PO PRN (16:11)
[2019-01-30] MEDS ORDERED: guaiFENesin 200 MG/10 ML 10 ML UNIT-DOSE CUPS PO PRN (16:11)
[2019-01-30] MEDS ORDERED: MAG HYDROX/AL HYDROX/SIMETH 30 ML UNIT-DOSE CUP PO PRN (16:11)
[2019-01-30] MEDS ORDERED: IBUPROFEN 400 MG TABLET (FP) PO PRN (16:11)
[2019-01-30] MEDS ORDERED: LOPERAMIDE HCL 2 MG CAPSULE PO PRN (16:11)
[2019-01-30] MEDS: PRENATAL VITAMINS W/ FOLIC ACID TABLET (FP) PO SCH (18:49)
[2019-01-30] MEDS: amLODIPine BESYLATE 5 MG TABLET (FP) PO SCH (18:49)
[2019-01-30] MEDS: THIAMINE HCL 100 MG TABLET (FP) PO SCH (22:07)
[2019-01-30] MEDS: hydrOXYzine PAMOATE 50 MG CAPSULE (FP) PO PRN (22:09)
[2019-01-30] MEDS: MELATONIN 5 MG TABLETS PO PRN (22:09)
[2019-01-31] MEDS: PRENATAL VITAMINS W/ FOLIC ACID TABLET (FP) PO SCH (10:29)
[2019-01-31] MEDS: amLODIPine BESYLATE 5 MG TABLET (FP) PO SCH (10:30)
[2019-01-31] MEDS: THIAMINE HCL 100 MG TABLET (FP) PO SCH (21:42)
[2019-01-31] MEDS: hydrOXYzine PAMOATE 50 MG CAPSULE (FP) PO PRN (21:42)
[2019-01-31] MEDS: MELATONIN 5 MG TABLETS PO PRN (21:43)
[2019-02-01] MEDS: amLODIPine BESYLATE 5 MG TABLET (FP) PO SCH (10:19)
[2019-02-01] MEDS: hydrOXYzine PAMOATE 50 MG CAPSULE (FP) PO PRN ×2 (10:19→21:54)
[2019-02-01] MEDS: PRENATAL VITAMINS W/ FOLIC ACID TABLET (FP) PO SCH (10:19)
[2019-02-01] MEDS: THIAMINE HCL 100 MG TABLET (FP) PO SCH (21:54)
[2019-02-01] MEDS: MELATONIN 5 MG TABLETS PO PRN (21:54)
[2019-02-02] MEDS: PRENATAL VITAMINS W/ FOLIC ACID TABLET (FP) PO SCH (10:46)
[2019-02-02] MEDS: amLODIPine BESYLATE 5 MG TABLET (FP) PO SCH (10:46)
[2019-02-02] MEDS: hydrOXYzine PAMOATE 50 MG CAPSULE (FP) PO PRN ×2 (10:47→21:39)
[2019-02-02] MEDS: THIAMINE HCL 100 MG TABLET (FP) PO SCH (21:39)
[2019-02-02] MEDS: MELATONIN 5 MG TABLETS PO PRN (21:39)
[2019-02-03] MEDS: amLODIPine BESYLATE 5 MG TABLET (FP) PO SCH (10:16)
[2019-02-03] MEDS: PRENATAL VITAMINS W/ FOLIC ACID TABLET (FP) PO SCH (10:16)
[2019-02-03] MEDS: hydrOXYzine PAMOATE 50 MG CAPSULE (FP) PO PRN ×2 (10:19→22:05)
[2019-02-03] MEDS: THIAMINE HCL 100 MG TABLET (FP) PO SCH (22:04)
[2019-02-03] MEDS: MELATONIN 5 MG TABLETS PO PRN (22:05)
[2019-02-04] MEDS: hydrOXYzine PAMOATE 50 MG CAPSULE (FP) PO PRN ×2 (11:10→22:19)
[2019-02-04] MEDS: PRENATAL VITAMINS W/ FOLIC ACID TABLET (FP) PO SCH (11:10)
[2019-02-04] MEDS: amLODIPine BESYLATE 5 MG TABLET (FP) PO SCH (11:10)
[2019-02-04] MEDS: MELATONIN 5 MG TABLETS PO PRN (22:19)
[2019-02-04] MEDS: THIAMINE HCL 100 MG TABLET (FP) PO SCH (22:19)
[2019-02-05] MEDS: PRENATAL VITAMINS W/ FOLIC ACID TABLET (FP) PO SCH (10:32)
[2019-02-05] MEDS: hydrOXYzine PAMOATE 50 MG CAPSULE (FP) PO PRN ×2 (10:32→21:52)
[2019-02-05] MEDS: amLODIPine BESYLATE 5 MG TABLET (FP) PO SCH (10:32)
[2019-02-05] MEDS: THIAMINE HCL 100 MG TABLET (FP) PO SCH (21:52)
[2019-02-05] MEDS: MELATONIN 5 MG TABLETS PO PRN (21:52)
[2019-02-06] MEDS: PRENATAL VITAMINS W/ FOLIC ACID TABLET (FP) PO SCH (11:00)
[2019-02-06] MEDS: amLODIPine BESYLATE 5 MG TABLET (FP) PO SCH (11:00)
[2019-02-06] MEDS: hydrOXYzine PAMOATE 50 MG CAPSULE (FP) PO PRN ×2 (11:00→21:40)
[2019-02-06] MEDS: THIAMINE HCL 100 MG TABLET (FP) PO SCH (21:40)
[2019-02-06] MEDS: MELATONIN 5 MG TABLETS PO PRN (21:40)
[2019-02-07] MEDS: PRENATAL VITAMINS W/ FOLIC ACID TABLET (FP) PO SCH (10:28)
[2019-02-07] MEDS: hydrOXYzine PAMOATE 50 MG CAPSULE (FP) PO PRN ×2 (10:28→21:45)
[2019-02-07] MEDS: amLODIPine BESYLATE 5 MG TABLET (FP) PO SCH (10:28)
[2019-02-07] MEDS: MELATONIN 5 MG TABLETS PO PRN (21:45)
[2019-02-07] MEDS: THIAMINE HCL 100 MG TABLET (FP) PO SCH (21:45)
[2019-02-08] MEDS: hydrOXYzine PAMOATE 50 MG CAPSULE (FP) PO PRN ×2 (10:48→21:40)
[2019-02-08] MEDS: amLODIPine BESYLATE 5 MG TABLET (FP) PO SCH (10:49)
[2019-02-08] MEDS: PRENATAL VITAMINS W/ FOLIC ACID TABLET (FP) PO SCH (10:49)
[2019-02-08] MEDS: MELATONIN 5 MG TABLETS PO PRN (21:40)
[2019-02-08] MEDS: THIAMINE HCL 100 MG TABLET (FP) PO SCH (21:40)
[2019-02-09] MEDS: amLODIPine BESYLATE 5 MG TABLET (FP) PO SCH (10:50)
[2019-02-09] MEDS: hydrOXYzine PAMOATE 50 MG CAPSULE (FP) PO PRN ×2 (10:50→21:06)
[2019-02-09] MEDS: PRENATAL VITAMINS W/ FOLIC ACID TABLET (FP) PO SCH (10:50)
[2019-02-09] MEDS: THIAMINE HCL 100 MG TABLET (FP) PO SCH (21:05)
[2019-02-09] MEDS: MELATONIN 5 MG TABLETS PO PRN (21:06)
[2019-02-10] MEDS: PRENATAL VITAMINS W/ FOLIC ACID TABLET (FP) PO SCH (09:49)
[2019-02-10] MEDS: hydrOXYzine PAMOATE 50 MG CAPSULE (FP) PO PRN ×2 (09:49→22:12)
[2019-02-10] MEDS: amLODIPine BESYLATE 5 MG TABLET (FP) PO SCH (09:49)
[2019-02-10] MEDS: MELATONIN 5 MG TABLETS PO PRN (22:12)
[2019-02-10] MEDS: THIAMINE HCL 100 MG TABLET (FP) PO SCH (22:12)
[2019-02-11] MEDS: PRENATAL VITAMINS W/ FOLIC ACID TABLET (FP) PO SCH (10:08)
[2019-02-11] MEDS: amLODIPine BESYLATE 5 MG TABLET (FP) PO SCH (10:09)
[2019-02-11] MEDS: THIAMINE HCL 100 MG TABLET (FP) PO SCH (21:33)
[2019-02-11] MEDS: MELATONIN 5 MG TABLETS PO PRN (21:34)
[2019-02-11] MEDS: hydrOXYzine PAMOATE 50 MG CAPSULE (FP) PO PRN (21:34)
[2019-02-12] MEDS: PRENATAL VITAMINS W/ FOLIC ACID TABLET (FP) PO SCH (10:16)
[2019-02-12] MEDS: amLODIPine BESYLATE 5 MG TABLET (FP) PO SCH (10:16)
[2019-02-12] MEDS: hydrOXYzine PAMOATE 50 MG CAPSULE (FP) PO PRN ×2 (10:16→21:10)
[2019-02-12] MEDS: THIAMINE HCL 100 MG TABLET (FP) PO SCH (21:08)
[2019-02-12] MEDS: MELATONIN 5 MG TABLETS PO PRN (21:09)
[2019-02-13 07:03] VITALS: TEMP 97.3
[2019-02-13] MEDS: amLODIPine BESYLATE 5 MG TABLET (FP) PO SCH (09:08)
[2019-02-13] MEDS: PRENATAL VITAMINS W/ FOLIC ACID TABLET (FP) PO SCH (09:08)
--- NOTE | 2019-02-13 10:01 | DS ---
[facility] Rehab Discharge Summary - [facility] Rehab Discharge Summary Admission Date: 01/30/19 Discharge Date: 02/13/19 - History Present History: Alcohol dependence Pertinent Past History: 68 years old male admitted to Rehab for alcohol use disorder on 01/30. Patient was in detox from 01/23/2019 - 01/26/2019. He has medical history hypertension, Hep. C and seizures. States he does not have a PCP now- d/w the importance of f /u for his medical conditions. d/w [facility] as tiffany option for a PCP. Pt will follow up with [facility] to help with his alcohol use disorder. Pt states had needed medications sent to pharmacy yesterday. - Discharge Physical Exam Vital Signs: Vital Signs Temperature 97.3 F L 02/13/19 07:02 Pulse Rate 88 02/13/19 07:02 Respiratory Rate 18 02/13/19 07:02 Blood Pressure 127/69 02/13/19 07:02 O2 Sat by Pulse Oximetry (%) Pertinent Admission Physical Exam Findings: alert and oriented ambulatory, no complaints - Treatment Discharge Condition: Outpatient referral accepted - Medication Discharge Medications: Ambulatory Orders Amlodipine Besylate [Norvasc -] 5 mg PO DAILY #30 tablet 02/12/19 - Medication-Assisted Treatment (MAT) Medication-Assisted Treatment (MAT): No - Discharge Instructions Diet, activity, other medical instructions: Diet: low Na diet Activity: exercise as much as possible Other medical instructions: f/u PCP and [facility] - AMA Did Patient Leave Against Medical Advice: No
[2019-02-13 10:51] VITALS: BP 113/67; PULSE 82
== END 2019-02-13 09:55 | disposition home or self-care (01) | DRG 895 ==
LOC: YASAS 16:43 → Y5N 01-30 01:59
PROVIDERS: ADMIT Neuromusculoskeletal Medicine & OMM; ATTEND Neuromusculoskeletal Medicine & OMM
PROC: HZ42ZZZ Group Counseling for Substance Abuse Treatment, Cognitive-Behavioral (ICD-10-PCS; principal; 2019-01-30)
DX: F10.20 Alcohol dependence, uncomplicated (principal); F12.20 Cannabis dependence, uncomplicated; F17.210 Nicotine dependence, cigarettes, uncomplicated; F32.9 Major depressive disorder, single episode, unspecified; I10 Essential (primary) hypertension; E78.5 Hyperlipidemia, unspecified; M19.90 Unspecified osteoarthritis, unspecified site; R76.11 Nonspecific reaction to tuberculin skin test without active tuberculosis; Z86.69 Personal history of other diseases of the nervous system and sense organs; Z86.19 Personal history of other infectious and parasitic diseases; Z96.641 Presence of right artificial hip joint
CPT/HCPCS: 71046-TC-FY

== ENCOUNTER 2019-05-19 19:09 | Inpatient (IN) | payer OTHER ==
[2019-05-19 19:47] VITALS: BMI 18.3
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
[2019-05-19] MEDS ORDERED: ACETAMINOPHEN 325 MG TABLET (FP) PO PRN ×2 (22:14)
[2019-05-19] MEDS ORDERED: chlordiazePOXIDE HCL 10 MG CAPSULE PO PRN (22:14)
[2019-05-19] MEDS ORDERED: MAGNESIUM CITRATE 300 ML BOTTLE PO PRN (22:14)
[2019-05-19] MEDS ORDERED: MAG HYDROX/AL HYDROX/SIMETH 30 ML UNIT-DOSE CUP PO PRN (22:14)
[2019-05-19] MEDS ORDERED: hydrOXYzine PAMOATE 25 MG CAPSULE (FP) PO PRN (22:14)
[2019-05-19] MEDS ORDERED: MENTHOL/PHENOL 1 EACH UD MM PRN (22:14)
[2019-05-19] MEDS ORDERED: MAGNESIUM HYDROX 2400MG/30ML ORAL SUSPENSION 30 ML CUP PO PRN (22:14)
[2019-05-19] MEDS ORDERED: IBUPROFEN 400 MG TABLET (FP) PO PRN (22:14)
[2019-05-19] MEDS ORDERED: NICOTINE POLACRILEX 2 MG GUM BUC PRN (22:14)
[2019-05-19] MEDS ORDERED: DICYCLOMINE HCL 10 MG CAPSULE PO PRN (22:14)
[2019-05-19] MEDS ORDERED: ONDANSETRON *ODT* 4 MG TABLET SL PRN (22:14)
[2019-05-19] MEDS ORDERED: METHOCARBAMOL 500 MG TABLET PO PRN (22:14)
[2019-05-19] MEDS: chlordiazePOXIDE HCL 25 MG CAPSULE PO SCH (23:15)
[2019-05-19] MEDS: MELATONIN 5 MG TABLETS PO PRN (23:15)
[2019-05-20] MEDS: chlordiazePOXIDE HCL 25 MG CAPSULE PO SCH ×3 (05:40→22:19)
[2019-05-20] MEDS: guaiFENesin 200 MG/10 ML 10 ML UNIT-DOSE CUPS PO PRN ×2 (05:41→22:19)
[2019-05-20] MEDS: PRENATAL VITAMINS W/ FOLIC ACID TABLET (FP) PO SCH (10:29)
[2019-05-20] MEDS: NICOTINE 14 MG/24 HOURS TOPICAL PATCH TD SCH (10:31)
--- NOTE | 2019-05-20 11:38 | CONSULT ---
[facility] Psychiatric Consult - Data Date of interview: 05/20/19 Admission source: [facility] Identifying data: Patient is a 69 year old single male, father of three, unemployed, homeless, and is supported by [facility]. This is one of multiple admissions for patient. Patient admitted to for alcohol dependence. Substance Abuse History: - Smoking Cessation. Smoking history: Current every day smoker. Have you smoked in the past 12 months: Yes. Aproximately how many cigarettes per day: 6. Cigars Per Day: 0. Hx Chewing Tobacco Use: No. Initiated information on smoking cessation: Yes. 'Breaking Loose' booklet given : 05/19/19. - Substance & Tx. History. Hx Alcohol Use: Yes. Hx Substance Use : Yes. Substance Use Type: Alcohol, Cocaine. Hx Substance Use Treatment: Yes ( [facility]). - Substances abused. Alcohol. Substance route: Oral. Frequency: Daily. Amount used: 1.5 6 pack of beer(16oz). Age of first use: 15. Date of last use: 05/19/19. Cocaine. Substance route: Inhalation. Frequency: 1-2 times per week. Amount used: $20 /day. Age of first use: 17. Date of last use : 02/15/19 Medical History: Significant for hypertension, alcohol-related seizures, bronchial asthma, hepatitis C, PPD+, history of treatment for chlamydia/ gonorrhea and orthosurgery for right hip replacement in 1994 and fracture right arm in 2010 Psychiatric History: Patient's first psychiatric contact occured as a child after he was admitted to [facility] for behavior issues. He reports being diagnosed with ADHD/bipolar disorder. He denies additional hospitalizations after he became an adult. States that he was diagnosed with schizophrenia by a physician at the [facility] several years ago. Patient with no recollection of medications prescribed. Denies currently seeing a psychiatric provider. Patient denies auditory/visual hallucinations, suicidal/homicidal ideation. No psychosis noted. Physical/Sexual Abuse/Trauma History: denies. Additional Comment: History of a total of 28 years of incarceration due to attempted murder and robbery. Mental Status Exam - Mental Status Exam Alert and Oriented to: Time, Place, Person Cognitive Function: Good Patient Appearance: Unkempt Mood: Withdrawn Affect: Mood Congruent Patient Behavior: Cooperative Speech Pattern: Clear Voice Loudness: Mildly Soft/Quiet Thought Process: Goal Oriented Thought Disorder: Not Present Hallucinations: Denies Suicidal Ideation: Denies Homicidal Ideation: Denies Insight/Judgement: Poor Sleep: Fair Appetite: Fair Muscle strength/Tone: Normal Gait/Station: Normal Psychiatric Findings - Problem List ([place] 1, 2,3) (1) Alcohol dependence with uncomplicated withdrawal Current Visit: Yes Status: Chronic (2) Cocaine dependence Current Visit: Yes Status: Chronic Qualifiers: Substance use status: uncomplicated Qualified Code(s): F14.20 - Cocaine dependence, uncomplicated (3) History of schizophrenia Current Visit: No Status: Chronic Comment: Asymptomatic.Off medications for years.Lost to follow up. (4) Substance-induced sleep disorder Current Visit: Yes Status: Acute (5) Substance induced mood disorder Current Visit: No Status: Chronic - Initial Treatment Plan Initial Treatment Plan: Psychoeducation provided. Detoxification in progress. Patient informed that Melatonin 5mg is available for insomnia. Observation.
[2019-05-20] MEDS ORDERED: FLU VACCINE QUAD 60 MCG/0.5 ML (MDV 19-20) IM ONE (12:00)
--- NOTE | 2019-05-20 12:07 | PN ---
S CIWA - CIWA Score Nausea/Vomitin-No Nausea/No Vomiting Muscle Tremors: 3 Anxiety: 3 Agitation: 3 Paroxysmal Sweats: 2 Orientation: 0-Oriented Tacttile Disturbances: 0-None Auditory Disturbances: 0-None Visual Disturbances: 0-None Headache: 0-None Present CIWA-Ar Total Score: 11 S Progress Note (SOAP) Subjective: sleepy tired body aches interrupted sleep shakes Objective: 05/20/19 12:06 Vital Signs Temperature 98.6 F 05/20/19 09:29 Pulse Rate 78 05/20/19 09:29 Respiratory Rate 18 05/20/19 09:29 Blood Pressure 128/74 05/20/19 09:29 O2 Sat by Pulse Oximetry (%) pending labs aaox3 lying in bed no acute distress Assessment: 05/20/19 12:07 withdrawals Plan: continue detox
[2019-05-20 12:43] LABS: ALBUMIN 2.9 g/dl (3.4-5.0); BILIRUBIN,TOTAL 0.8 mg/dL (0.2-1); BLOOD UREA NITROGEN 25.6 mg/dL (7-18); CALCIUM 8.2 mg/dL (8.5-10.1); CREATININE 1.1 mg/dL (0.55-1.3); POTASSIUM 3.5 mmol/L (3.5-5.1)
[2019-05-20 12:46] LABS: HEMATOCRIT 35.7 % (35.4-49); MCH 33.8 pg (25.7-33.7); MCHC 33.5 g/dl (32.0-35.9); MEAN CELL VOLUME 100.9 fl (80-96); MEAN PLT VOLUME 8.5 fl (7.5-11.1); PLATELET COUNT 173 K/MM3 (134-434); RBC 3.54 M/mm3 (4.00-5.60); RDW 13.9 % (11.9-15.9); WHITE BLOOD COUNT 5.3 K/mm3 (4.0-10.0)
[2019-05-20 13:19] LABS: EPI CELLS 3.1 /HPF (0-5/HPF); HYALINE CASTS 4 /lpf (0-8); PH,URINE 5.5 (5.0-8.0); URINE APPEARANCE CLEAR; URINE BACTERIA 2.4 /hpf (NEGATIVE); URINE BILIRUBIN 1+ (NEGATIVE); URINE COLOR DK YELLOW; URINE GLUCOSE (UA) NEGATIVE (NEGATIVE); URINE KETONE NEGATIVE (NEGATIVE); URINE LEUK ESTERASE NEGATIVE (NEGATIVE); URINE NITRITE NEGATIVE (NEGATIVE); URINE PROTEIN NEGATIVE (NEGATIVE); URINE RBC 1 /hpf (0-4); URINE WBC 2 /hpf (0-5)
[2019-05-20 13:50] LABS: URINE CRYSTALS POSITIVE /hpf
[2019-05-20] MEDS: THIAMINE HCL 100 MG TABLET (FP) PO SCH (22:19)
[2019-05-20] MEDS: MELATONIN 5 MG TABLETS PO PRN (22:19)
[2019-05-21] MEDS: chlordiazePOXIDE 5 MG CAPSULE PO SCH ×3 (05:26→22:03)
[2019-05-21] MEDS: guaiFENesin 200 MG/10 ML 10 ML UNIT-DOSE CUPS PO PRN ×3 (05:27→22:07)
[2019-05-21] MEDS: PRENATAL VITAMINS W/ FOLIC ACID TABLET (FP) PO SCH (10:48)
[2019-05-21] MEDS: P-EPHED 60MG/TRIPROLIDI 2.5MG TABLET PO PRN (10:48)
[2019-05-21] MEDS: NICOTINE 14 MG/24 HOURS TOPICAL PATCH TD SCH (10:48)
--- NOTE | 2019-05-21 10:59 | PN ---
S CIWA - CIWA Score Nausea/Vomitin-Mild Nausea/No Vomiting Muscle Tremors: 1-None Visible, but [place] Anxiety: 2 Agitation: 2 Paroxysmal Sweats: No Perspiration Orientation: 0-Oriented Tacttile Disturbances: 1-Very Mild Itch/Numbness Auditory Disturbances: 0-None Visual Disturbances: 0-None Headache: 2-Mild CIWA-Ar Total Score: 9 [facility] Progress Note (SOAP) Subjective: alert,irritable,anxious,interrupted sleep,pain in the body Objective: 05/21/19 10:57 Vital Signs Temperature 97.7 F 05/21/19 09:51 Pulse Rate 68 05/21/19 09:51 Respiratory Rate 18 05/21/19 09:51 Blood Pressure 132/74 05/21/19 09:51 O2 Sat by Pulse Oximetry (%) 05/21/19 10:57 Laboratory Last Values WBC 5.3 K/mm3 (4.0-10.0) 05/20/19 07:50 RBC 3.54 M/mm3 (4.00-5.60) L 05/20/19 07:50 Hgb 12.0 GM/dL (11.7-16.9) 05/20/19 07:50 Hct 35.7 % (35.4-49) 05/20/19 07:50 MCV 100.9 fl (80-96) H 05/20/19 07:50 MCH 33.8 pg (25.7-33.7) H 05/20/19 07:50 MCHC 33.5 g/dl (32.0-35.9) 05/20/19 07:50 RDW 13.9 % (11.9-15.9) 05/20/19 07:50 Plt Count 173 K/MM3 (134-434) 05/20/19 07:50 MPV 8.5 fl (7.5-11.1) 05/20/19 07:50 Sodium 140 mmol/L (136-145) 05/20/19 07:50 Potassium 3.5 mmol/L (3.5-5.1) 05/20/19 07:50 Chloride 106 mmol/L (98-107) 05/20/19 07:50 Carbon Dioxide 27 mmol/L (21-32) 05/20/19 07:50 Anion Gap 7 MMOL/L (8-16) L 05/20/19 07:50 BUN 25.6 mg/dL (7-18) H 05/20/19 07:50 Creatinine 1.1 mg/dL (0.55-1.3) 05/20/19 07:50 Est GFR (CKD-EPI)AfAm 79.52 05/20/19 07:50 Est GFR (CKD-EPI)NonAf 68.61 05/20/19 07:50 Random Glucose 110 mg/dL (74-106) H 05/20/19 07:50 Calcium 8.2 mg/dL (8.5-10.1) L 05/20/19 07:50 Total Bilirubin 0.8 mg/dL (0.2-1) 05/20/19 07:50 AST 122 U/L (15-37) H 05/20/19 07:50 ALT 79 U/L (13-61) H 05/20/19 07:50 Alkaline Phosphatase 92 U/L (45-117) 05/20/19 07:50 Total Protein 7.0 g/dl (6.4-8.2) 05/20/19 07:50 Albumin 2.9 g/dl (3.4-5.0) L 05/20/19 07:50 Urine Color Dk yellow 05/20/19 08:20 Urine Appearance Clear 05/20/19 08:20 Urine pH 5.5 (5.0-8.0) 05/20/19 08:20 Ur Specific [place] 1.021 (1.010-1.035) 05/20/19 08:20 Urine Protein Negative (NEGATIVE) 05/20/19 08:20 Urine Glucose (UA) Negative (NEGATIVE) 05/20/19 08:20 Urine Ketones Negative (NEGATIVE) 05/20/19 08:20 Urine Blood Negative (NEGATIVE) 05/20/19 08:20 Urine Nitrite Negative (NEGATIVE) 05/20/19 08:20 Urine Bilirubin 1+ (NEGATIVE) H 05/20/19 08:20 Urine Urobilinogen 2.0 mg/dL (0.2-1.0) 05/20/19 08:20 Ur Leukocyte Esterase Negative (NEGATIVE) 05/20/19 08:20 Urine WBC (Auto) 2 /hpf (0-5) 05/20/19 08:20 Urine RBC (Auto) 1 /hpf (0-4) 05/20/19 08:20 Urine Casts (Auto) 4 /lpf (0-8) 05/20/19 08:20 U Epithel Cells (Auto) 3.1 /HPF (0-5/HPF) 05/20/19 08:20 Urine Crystals (Auto) Positive /hpf 05/20/19 08:20 Urine Bacteria (Auto) 2.4 /hpf (NEGATIVE) 05/20/19 08:20 HIV 1&2 Antibody Screen Negative 05/20/19 07:50 HIV P24 Antigen Negative 05/20/19 07:50 05/21/19 10:59 rpr pending Assessment: 05/21/19 10:59 withdrawal symptom Plan: continue detox librium regimen,repeat cmp in am,encourage oral fluid
[2019-05-21] MEDS: THIAMINE HCL 100 MG TABLET (FP) PO SCH (22:03)
[2019-05-21] MEDS: MELATONIN 5 MG TABLETS PO PRN (22:04)
[2019-05-22] MEDS ORDERED: chlordiazePOXIDE HCL 10 MG CAPSULE PO PRN
[2019-05-22] MEDS: chlordiazePOXIDE HCL 10 MG CAPSULE PO SCH ×3 (05:45→22:14)
[2019-05-22] MEDS: BISMUTH SUBSALICYLATE 524 MG/30 ML UD PO PRN ×2 (05:46→07:51)
[2019-05-22] MEDS: guaiFENesin 200 MG/10 ML 10 ML UNIT-DOSE CUPS PO PRN ×2 (05:48→22:14)
--- NOTE | 2019-05-22 10:07 | PN ---
S CIWA - CIWA Score Nausea/Vomitin-Mild Nausea/No Vomiting Muscle Tremors: 1-None Visible, but [place] Anxiety: 2 Agitation: 2 Paroxysmal Sweats: No Perspiration Orientation: 0-Oriented Tacttile Disturbances: 1-Very Mild Itch/Numbness Auditory Disturbances: 0-None Visual Disturbances: 0-None Headache: 1-Very Mild CIWA-Ar Total Score: 8 [facility] Progress Note (SOAP) Subjective: alert,irritable,anxious,interrupted sleep,itching both feet, Objective: 05/22/19 10:05 Vital Signs Temperature 98.0 F 05/22/19 09:13 Pulse Rate 107 H 05/22/19 09:13 Respiratory Rate 18 05/22/19 09:13 Blood Pressure 116/76 05/22/19 09:13 O2 Sat by Pulse Oximetry (%) 05/22/19 10:05 Laboratory Last Values WBC 5.3 K/mm3 (4.0-10.0) 05/20/19 07:50 RBC 3.54 M/mm3 (4.00-5.60) L 05/20/19 07:50 Hgb 12.0 GM/dL (11.7-16.9) 05/20/19 07:50 Hct 35.7 % (35.4-49) 05/20/19 07:50 MCV 100.9 fl (80-96) H 05/20/19 07:50 MCH 33.8 pg (25.7-33.7) H 05/20/19 07:50 MCHC 33.5 g/dl (32.0-35.9) 05/20/19 07:50 RDW 13.9 % (11.9-15.9) 05/20/19 07:50 Plt Count 173 K/MM3 (134-434) 05/20/19 07:50 MPV 8.5 fl (7.5-11.1) 05/20/19 07:50 Sodium 140 mmol/L (136-145) 05/20/19 07:50 Potassium 3.5 mmol/L (3.5-5.1) 05/20/19 07:50 Chloride 106 mmol/L (98-107) 05/20/19 07:50 Carbon Dioxide 27 mmol/L (21-32) 05/20/19 07:50 Anion Gap 7 MMOL/L (8-16) L 05/20/19 07:50 BUN 25.6 mg/dL (7-18) H 05/20/19 07:50 Creatinine 1.1 mg/dL (0.55-1.3) 05/20/19 07:50 Est GFR (CKD-EPI)AfAm 79.52 05/20/19 07:50 Est GFR (CKD-EPI)NonAf 68.61 05/20/19 07:50 Random Glucose 110 mg/dL (74-106) H 05/20/19 07:50 Calcium 8.2 mg/dL (8.5-10.1) L 05/20/19 07:50 Total Bilirubin 0.8 mg/dL (0.2-1) 05/20/19 07:50 AST 122 U/L (15-37) H 05/20/19 07:50 ALT 79 U/L (13-61) H 05/20/19 07:50 Alkaline Phosphatase 92 U/L (45-117) 05/20/19 07:50 Total Protein 7.0 g/dl (6.4-8.2) 05/20/19 07:50 Albumin 2.9 g/dl (3.4-5.0) L 05/20/19 07:50 Urine Color Dk yellow 05/20/19 08:20 Urine Appearance Clear 05/20/19 08:20 Urine pH 5.5 (5.0-8.0) 05/20/19 08:20 Ur Specific [place] 1.021 (1.010-1.035) 05/20/19 08:20 Urine Protein Negative (NEGATIVE) 05/20/19 08:20 Urine Glucose (UA) Negative (NEGATIVE) 05/20/19 08:20 Urine Ketones Negative (NEGATIVE) 05/20/19 08:20 Urine Blood Negative (NEGATIVE) 05/20/19 08:20 Urine Nitrite Negative (NEGATIVE) 05/20/19 08:20 Urine Bilirubin 1+ (NEGATIVE) H 05/20/19 08:20 Urine Urobilinogen 2.0 mg/dL (0.2-1.0) 05/20/19 08:20 Ur Leukocyte Esterase Negative (NEGATIVE) 05/20/19 08:20 Urine WBC (Auto) 2 /hpf (0-5) 05/20/19 08:20 Urine RBC (Auto) 1 /hpf (0-4) 05/20/19 08:20 Urine Casts (Auto) 4 /lpf (0-8) 05/20/19 08:20 U Epithel Cells (Auto) 3.1 /HPF (0-5/HPF) 05/20/19 08:20 Urine Crystals (Auto) Positive /hpf 05/20/19 08:20 Urine Bacteria (Auto) 2.4 /hpf (NEGATIVE) 05/20/19 08:20 HIV 1&2 Antibody Screen Negative 05/20/19 07:50 HIV P24 Antigen Negative 05/20/19 07:50 05/22/19 10:06 rpr pending Assessment: 05/22/19 10:05 withdrawal symptom Plan: continue detox librium regimen,discharge in am
[2019-05-22] MEDS: PRENATAL VITAMINS W/ FOLIC ACID TABLET (FP) PO SCH (10:21)
[2019-05-22] MEDS: NICOTINE 14 MG/24 HOURS TOPICAL PATCH TD SCH (10:22)
[2019-05-22] MEDS: P-EPHED 60MG/TRIPROLIDI 2.5MG TABLET PO PRN (10:23)
[2019-05-22 10:28] LABS: ALBUMIN 2.8 g/dl (3.4-5.0); BILIRUBIN,TOTAL 0.6 mg/dL (0.2-1); CALCIUM 8.8 mg/dL (8.5-10.1); CREATININE 0.7 mg/dL (0.55-1.3); POTASSIUM 3.7 mmol/L (3.5-5.1)
[2019-05-22] MEDS: TOLNAFTATE 1% CREAM 15 GM TUBE TP SCH ×2 (17:01→22:13)
[2019-05-22] MEDS: MELATONIN 5 MG TABLETS PO PRN (22:14)
[2019-05-22] MEDS: THIAMINE HCL 100 MG TABLET (FP) PO SCH (22:14)
[2019-05-23] MEDS ORDERED: chlordiazePOXIDE HCL 10 MG CAPSULE PO ONE (05:00)
[2019-05-23] MEDS: guaiFENesin 200 MG/10 ML 10 ML UNIT-DOSE CUPS PO PRN (05:45)
--- NOTE | 2019-05-23 08:46 | DS ---
[facility] Detox Discharge Summary Admission Date: 05/19/19 Discharge Date: 05/23/19 - History Present History: Alcohol Dependence, Cannabis Dependence, Cocaine Dependence - Physical Exam Results Vital Signs: Vital Signs Temperature 98.1 F 05/23/19 06:44 Pulse Rate 76 05/23/19 06:44 Respiratory Rate 16 05/23/19 06:44 Blood Pressure 156/93 05/23/19 06:44 O2 Sat by Pulse Oximetry (%) Pertinent Admission Physical Exam Findings: pt arrived in withdrawals Vital Signs Temperature 98.1 F 05/23/19 06:44 Pulse Rate 76 05/23/19 06:44 Respiratory Rate 16 05/23/19 06:44 Blood Pressure 156/93 05/23/19 06:44 O2 Sat by Pulse Oximetry (%) Laboratory Tests 05/20/19 05/20/19 05/20/19 07:50 07:50 07:50 WBC 5.3 RBC 3.54 L Hgb 12.0 Hct 35.7 MCV 100.9 H MCH 33.8 H MCHC 33.5 RDW 13.9 Plt Count 173 MPV 8.5 Sodium 140 Potassium 3.5 Chloride 106 Carbon Dioxide 27 Anion Gap 7 L BUN 25.6 H Creatinine 1.1 Est GFR (CKD-EPI)AfAm 79.52 Est GFR (CKD-EPI)NonAf 68.61 Random Glucose 110 H Calcium 8.2 L Total Bilirubin 0.8 AST 122 H ALT 79 H Alkaline Phosphatase 92 Total Protein 7.0 Albumin 2.9 L Urine Color Urine Appearance Urine pH Ur Specific [place] Urine Protein Urine Glucose (UA) Urine Ketones Urine Blood Urine Nitrite Urine Bilirubin Urine Urobilinogen Ur Leukocyte Esterase Urine WBC (Auto) Urine RBC (Auto) Urine Casts (Auto) U Epithel Cells (Auto) Urine Crystals (Auto) Urine Bacteria (Auto) RPR Titer Nonreactive HIV 1&2 Antibody Screen HIV P24 Antigen 05/20/19 05/20/19 05/22/19 07:50 08:20 08:00 WBC RBC Hgb Hct MCV MCH MCHC RDW Plt Count MPV Sodium 139 Potassium 3.7 Chloride 104 Carbon Dioxide 27 Anion Gap 8 BUN 17.0 Creatinine 0.7 Est GFR (CKD-EPI)AfAm 112.38 Est GFR (CKD-EPI)NonAf 96.97 Random Glucose 89 Calcium 8.8 Total Bilirubin 0.6 AST 109 H ALT 81 H Alkaline Phosphatase 94 Total Protein 7.0 Albumin 2.8 L Urine Color Dk yellow Urine Appearance Clear Urine pH 5.5 Ur Specific [place] 1.021 Urine Protein Negative Urine Glucose (UA) Negative Urine Ketones Negative Urine Blood Negative Urine Nitrite Negative Urine Bilirubin 1+ H Urine Urobilinogen 2.0 Ur Leukocyte Esterase Negative Urine WBC (Auto) 2 Urine RBC (Auto) 1 Urine Casts (Auto) 4 U Epithel Cells (Auto) 3.1 Urine Crystals (Auto) Positive Urine Bacteria (Auto) 2.4 RPR Titer HIV 1&2 Antibody Screen Negative HIV P24 Antigen Negative today pt is aaox3 ambulating no acute distress no s/s of withdrawals - Treatment Hospital Course: Detox Protocol Followed, Detoxed Safely, Responded well, Discharged Condition Good, Rehab Referral Accepted Patient has Accepted a Rehab Referral to[facility] - Medication Discharge Medications: Ambulatory Orders Amlodipine Besylate [Norvasc -] 5 mg PO DAILY #30 tablet 02/12/19 - Diagnosis (1) Substance-induced sleep disorder Current Visit: Yes Status: Acute (2) Alcohol dependence with uncomplicated withdrawal Current Visit: Yes Status: Chronic (3) Cocaine dependence Current Visit: Yes Status: Chronic Qualifiers: Substance use status: uncomplicated Qualified Code(s): F14.20 - Cocaine dependence, uncomplicated (4) Substance-induced sleep disorder Current Visit: No Status: Acute (5) Arthritis Current Visit: No Status: Chronic (6) Asthma Current Visit: No Status: Chronic Qualifiers: Asthma severity: mild Asthma persistence: intermittent Asthma complication type: with status asthmaticus Qualified Code(s): J45.22 - Mild intermittent asthma with status asthmaticus (7) Cannabis abuse Current Visit: No Status: Chronic (8) Depression Current Visit: No Status: Chronic (9) Essential hypertension Current Visit: No Status: Chronic (10) HLD (hyperlipidemia) Current Visit: No Status: Chronic Qualifiers: Hyperlipidemia type: unspecified Qualified Code(s): E78.5 - Hyperlipidemia , unspecified (11) History of hepatitis C Current Visit: No Status: Chronic (12) History of schizophrenia Current Visit: No Status: Chronic (13) Insomnia Current Visit: No Status: Chronic (14) Nicotine dependence Current Visit: No Status: Chronic Qualifiers: Nicotine product type: cigarettes Substance use status: uncomplicated Qualified Code(s): F17.210 - Nicotine dependence, cigarettes, uncomplicated (15) Opioid dependence Current Visit: No Status: Chronic Qualifiers: Substance use status: uncomplicated Qualified Code(s): F11.20 - Opioid dependence, uncomplicated (16) PPD positive Current Visit: No Status: Chronic (17) Status post right hip replacement Current Visit: No Status: Chronic (18) Substance induced mood disorder Current Visit: No Status: Chronic - AMA Did Patient Leave Against Medical Advice: No
[2019-05-23] MEDS: PRENATAL VITAMINS W/ FOLIC ACID TABLET (FP) PO SCH (10:13)
[2019-05-23] MEDS: TOLNAFTATE 1% CREAM 15 GM TUBE TP SCH (10:13)
[2019-05-23] MEDS: NICOTINE 14 MG/24 HOURS TOPICAL PATCH TD SCH (10:30)
[2019-05-23 13:28] VITALS: BP 146/83; PULSE 70; TEMP 97.7
== END 2019-05-23 14:55 | disposition other institution (70) | DRG 897 ==
LOC: YASAS 19:09 → Y6N 21:58
PROVIDERS: ADMIT Allergy & Immunology; ATTEND Allergy & Immunology
PROC: HZ2ZZZZ Detoxification Services for Substance Abuse Treatment (ICD-10-PCS; principal; 2019-05-19)
DX: F10.230 Alcohol dependence with withdrawal, uncomplicated (principal); F11.20 Opioid dependence, uncomplicated; F14.20 Cocaine dependence, uncomplicated; F19.282 Other psychoactive substance dependence with psychoactive substance-induced sleep disorder; J45.22 Mild intermittent asthma with status asthmaticus; F12.20 Cannabis dependence, uncomplicated; F17.210 Nicotine dependence, cigarettes, uncomplicated; F19.24 Other psychoactive substance dependence with psychoactive substance-induced mood disorder; F20.9 Schizophrenia, unspecified; I10 Essential (primary) hypertension; E78.5 Hyperlipidemia, unspecified; G47.00 Insomnia, unspecified; M12.9 Arthropathy, unspecified; B18.2 Chronic viral hepatitis C; R76.11 Nonspecific reaction to tuberculin skin test without active tuberculosis; Z96.641 Presence of right artificial hip joint; Z86.19 Personal history of other infectious and parasitic diseases
CPT/HCPCS: 36415; 80053; 81003; 85027; 86593; 87389

== ENCOUNTER 2019-05-23 15:03 | Inpatient (IN) | payer OTHER ==
--- NOTE | 2019-05-23 13:32 | HP ---
[facility] Rehab Assess/Revision - Admission History Admitted to Rehab from[facility] - Findings Detox History & Physical reviewed: Yes Concur with findings: Yes Inpatient Rehab Admission - Rehab Decision to Admit Inpatient rehab admission?: Yes - Initial Determination Are CD services needed?: Yes Free of communicable disease: Yes Not in need of hospitalization: Yes - Rehab Admission Criteria Previous failed treatment: Yes Poor recovery environment: Yes Comorbidities: Yes Lacks judgement: Yes Patient is meeting Inpatient Rehab admission criteria:: Yes
[~2019-05-23 15:03] MED LIST changes: -LOPERAMIDE HCL 2 MG CAPSULE PO PRN; +NICOTINE POLACRILEX 4 MG GUM BUC PRN; +guaiFENesin 200 MG/10 ML 10 ML UNIT-DOSE CUPS PO PRN; -guaiFENesin/D-METHORPHAN HB 10 ML UNIT-DOSE CUPS PO PRN; +hydrOXYzine PAMOATE 50 MG CAPSULE (FP) PO PRN
--- NOTE | 2019-05-23 15:57 | PN ---
[facility] Progress Note Note: 69 y/o m pt with h/o chronic alcoholism ,cocaine dep, htn , hcv and nicotine dep who completedd detox now admitted to [facility]. Pt stable . plan cont rehab.
[2019-05-23] MEDS: THIAMINE HCL 100 MG TABLET (FP) PO SCH (21:10)
[2019-05-23] MEDS: MELATONIN 5 MG TABLETS PO PRN (21:10)
[2019-05-24] MEDS: LOPERAMIDE HCL 2 MG CAPSULE PO PRN (03:51)
[2019-05-24] MEDS: PRENATAL VITAMINS W/ FOLIC ACID TABLET (FP) PO SCH (10:35)
[2019-05-24] MEDS: NICOTINE 21 MG/24 HOURS TOPICAL PATCH TD SCH (10:36)
[2019-05-24] MEDS: THIAMINE HCL 100 MG TABLET (FP) PO SCH (21:12)
[2019-05-24] MEDS: MELATONIN 5 MG TABLETS PO PRN (21:12)
[2019-05-25] MEDS: LOPERAMIDE HCL 2 MG CAPSULE PO PRN ×2 (03:45→10:49)
[2019-05-25] MEDS: PRENATAL VITAMINS W/ FOLIC ACID TABLET (FP) PO SCH (10:48)
[2019-05-25] MEDS: NICOTINE 21 MG/24 HOURS TOPICAL PATCH TD SCH (10:48)
[2019-05-25] MEDS: THIAMINE HCL 100 MG TABLET (FP) PO SCH (21:34)
[2019-05-25] MEDS: MELATONIN 5 MG TABLETS PO PRN (21:34)
[2019-05-26] MEDS: LOPERAMIDE HCL 2 MG CAPSULE PO PRN (05:59)
[2019-05-26] MEDS: NICOTINE 21 MG/24 HOURS TOPICAL PATCH TD SCH (09:37)
[2019-05-26] MEDS: PRENATAL VITAMINS W/ FOLIC ACID TABLET (FP) PO SCH (09:37)
[2019-05-26] MEDS: MELATONIN 5 MG TABLETS PO PRN (21:25)
[2019-05-26] MEDS: THIAMINE HCL 100 MG TABLET (FP) PO SCH (21:25)
[2019-05-27] MEDS: MAG HYDROX/AL HYDROX/SIMETH 30 ML UNIT-DOSE CUP PO PRN (06:15)
[2019-05-27] MEDS: PRENATAL VITAMINS W/ FOLIC ACID TABLET (FP) PO SCH (09:45)
[2019-05-27] MEDS: NICOTINE 21 MG/24 HOURS TOPICAL PATCH TD SCH (09:45)
[2019-05-27] MEDS: MELATONIN 5 MG TABLETS PO PRN (21:39)
[2019-05-27] MEDS: THIAMINE HCL 100 MG TABLET (FP) PO SCH (21:39)
[2019-05-28] MEDS: MAG HYDROX/AL HYDROX/SIMETH 30 ML UNIT-DOSE CUP PO PRN (06:17)
[2019-05-28] MEDS: NICOTINE 21 MG/24 HOURS TOPICAL PATCH TD SCH (09:34)
[2019-05-28] MEDS: PRENATAL VITAMINS W/ FOLIC ACID TABLET (FP) PO SCH (09:34)
--- NOTE | 2019-05-28 11:12 | PN ---
[facility] Progress Note Note: Vital Signs (72 hours) 05/26/19 05/26/19 05/26/19 00:30 03:30 06:50 Temperature 97.3 F L Pulse Rate 81 Respiratory 18 18 18 Rate Blood Pressure 107/75 05/27/19 05/27/19 05/28/19 00:30 06:59 00:30 Temperature 97.6 F Pulse Rate 63 Respiratory 20 18 18 Rate Blood Pressure 134/74 05/28/19 05/28/19 03:30 06:00 Temperature 97.7 F Pulse Rate 69 Respiratory 18 16 Rate Blood Pressure 127/72 Patient states he is taking Norvasc for blood pressure. [facility] pharmacy called. Last prescription date 02/2019 and medication not picked up. Blood pressure stable. Will monitor clinically and treat if elevation occurs.
[2019-05-28] MEDS: THIAMINE HCL 100 MG TABLET (FP) PO SCH (21:10)
[2019-05-28] MEDS: MELATONIN 5 MG TABLETS PO PRN (21:10)
[2019-05-29] MEDS: PRENATAL VITAMINS W/ FOLIC ACID TABLET (FP) PO SCH (09:54)
[2019-05-29] MEDS: NICOTINE 21 MG/24 HOURS TOPICAL PATCH TD SCH (09:54)
[2019-05-29] MEDS ORDERED: BENZOCAINE 28 GM HEMORRHOIDAL OINTMENT PR PRN (10:38)
--- NOTE | 2019-05-29 10:56 | DS ---
[facility] Rehab Discharge Summary - [facility] Rehab Discharge Summary Admission Date: 05/23/19 Discharge Date: 05/29/19 - History Present History: Alcohol dependence, Cannabis dependence, Cocaine dependence Pertinent Past History: KNOWN TO PROGRAM LAST HERE 01/2019 FOR 2 WEEKS IN REHAB. CLIENT REPORTS RELAPSING SOON AFTER DC. CLIENT REPORTS DAILY ALCOHOL INTAKE. DRINKING MOSTLY 1.5 SIX PACK OF BEER. REPORTS + EYE CYBER INTEL PLANNER DUE TO WITHDRAWAL. HX/O WITHDRAWAL SEIZURES X1 A FEW YEARS AGO. + BLACK OUTS. DENIES SI,AVH. REPORTS LONGEST CLEAN TIME 15 YEARS WHILE INCARCERATED. DENIES ANY SIGNIFICANT PERIOD OF CLEAN TIME THIS PAST YEAR. LIVES ALONE, UNEMPLOYED, PROBATION. ATTEND [facility]. HE ALSO ABUSE COCAINE - Discharge Physical Exam Vital Signs: Vital Signs Temperature 98.2 F 05/29/19 07:03 Pulse Rate 81 05/29/19 07:03 Respiratory Rate 18 05/29/19 07:03 Blood Pressure 111/73 05/29/19 07:03 O2 Sat by Pulse Oximetry (%) Pertinent Admission Physical Exam Findings: Physical General Appearance: No apparent distress HEENTM: Normocephalic, Respiratory: Lungs Clear, Neck: Supple, Trachea in good position Cardiology: S1, S2 Abdominal: +Bowel Sounds, Non Tender, Soft Genitourinary: Yes: Within Normal Limits Musculoskeletal: full range of Motion, Gait Steady Neurological: CN 2-12 intact, Motor Strength 5/5, s - Treatment Discharge Condition: Outpatient referral accepted (Patient will return to [facility]. medically stable for discharge.) Hospital Course: patient attended groups, had 1:1 with his counselor, was adherent to the treatment plan and medication regimen. - Medication Discharge Medications: Ambulatory Orders Amlodipine Besylate [Norvasc -] 5 mg PO DAILY #30 tablet 05/29/19 - Medication-Assisted Treatment (MAT) Medication-Assisted Treatment (MAT): No - Discharge Instructions Diet, activity, other medical instructions: Diet: as tolerated Activity: as tolerated Other medical instructions: Please follow up with aftercare plan. Patient will see PCP in 1 month, please take Norvasc as prescribed to control BP. - Diagnosis (1) Alcohol dependence with uncomplicated withdrawal Current Visit: No Status: Chronic - Follow-up Referral Minutes to complete discharge: 20 - AMA Did Patient Leave Against Medical Advice: No Additional Comments: Norvasc prescribed and transmitted to patient's pharmacy.
[2019-05-29] MEDS: MELATONIN 5 MG TABLETS PO PRN (21:31)
[2019-05-29] MEDS: THIAMINE HCL 100 MG TABLET (FP) PO SCH (21:32)
[2019-05-30 07:12] VITALS: BP 133/75; PULSE 79; TEMP 98.3
[2019-05-30] MEDS: PRENATAL VITAMINS W/ FOLIC ACID TABLET (FP) PO SCH (09:03)
[2019-05-30] MEDS: NICOTINE 21 MG/24 HOURS TOPICAL PATCH TD SCH (09:05)
== END 2019-05-30 09:40 | disposition home or self-care (01) | DRG 895 ==
LOC: YASAS 15:03 → Y3W 15:05
PROVIDERS: ADMIT Neuromusculoskeletal Medicine & OMM; ATTEND Neuromusculoskeletal Medicine & OMM
PROC: HZ42ZZZ Group Counseling for Substance Abuse Treatment, Cognitive-Behavioral (ICD-10-PCS; principal; 2019-05-23)
DX: F10.20 Alcohol dependence, uncomplicated (principal); F14.20 Cocaine dependence, uncomplicated; F12.20 Cannabis dependence, uncomplicated; F17.210 Nicotine dependence, cigarettes, uncomplicated; I10 Essential (primary) hypertension; B18.2 Chronic viral hepatitis C

== ENCOUNTER 2019-08-30 18:15 | Inpatient (IN) | payer OTHER ==
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
[2019-08-30] MEDS ORDERED: ONDANSETRON *ODT* 4 MG TABLET SL ONE (20:31)
[2019-08-30] MEDS ORDERED: MAG HYDROX/AL HYDROX/SIMETH 30 ML UNIT-DOSE CUP PO PRN (20:31)
[2019-08-30] MEDS ORDERED: MENTHOL/PHENOL 1 EACH UD MM PRN (20:31)
[2019-08-30] MEDS ORDERED: MAGNESIUM HYDROX 2400MG/30ML ORAL SUSPENSION 30 ML CUP PO PRN (20:31)
[2019-08-30] MEDS ORDERED: BISMUTH SUBSALICYLATE 524 MG/30 ML UD PO PRN (20:31)
[2019-08-30] MEDS ORDERED: P-EPHED 60MG/TRIPROLIDI 2.5MG TABLET PO PRN (20:31)
[2019-08-30] MEDS ORDERED: DICYCLOMINE HCL 10 MG CAPSULE PO PRN (20:31)
[2019-08-30] MEDS ORDERED: METHOCARBAMOL 500 MG TABLET PO PRN (20:31)
[2019-08-30] MEDS ORDERED: LORazepam 1 MG TABLET PO PRN (20:31)
[2019-08-30] MEDS ORDERED: guaiFENesin 200 MG/10 ML 10 ML UNIT-DOSE CUPS PO PRN (20:31)
[2019-08-30] MEDS ORDERED: ACETAMINOPHEN 325 MG TABLET (FP) PO PRN ×2 (20:31)
[2019-08-30] MEDS ORDERED: MAGNESIUM CITRATE 300 ML BOTTLE PO PRN (20:31)
[2019-08-30] MEDS ORDERED: IBUPROFEN 400 MG TABLET (FP) PO PRN (20:31)
[2019-08-30] MEDS: MELATONIN 5 MG TABLETS PO SCH (22:25)
[2019-08-30] MEDS: THIAMINE HCL 100 MG TABLET (FP) PO SCH (22:25)
[2019-08-30] MEDS: LORazepam 2 MG TABLET PO SCH (22:26)
[2019-08-30 22:47] VITALS: BMI 21.2
[2019-08-31] MEDS: LORazepam 2 MG TABLET PO SCH ×4 (05:20→22:30)
[2019-08-31] MEDS: PRENATAL VITAMINS W/ FOLIC ACID TABLET (FP) PO SCH (10:12)
[2019-08-31] MEDS: NICOTINE 14 MG/24 HOURS TOPICAL PATCH TD SCH (10:12)
[2019-08-31 10:30] LABS: HEMATOCRIT 35.9 % (35.4-49); MCH 33.3 pg (25.7-33.7); MCHC 33.4 g/dl (32.0-35.9); MEAN CELL VOLUME 99.5 fl (80-96); MEAN PLT VOLUME 8.6 fl (7.5-11.1); PLATELET COUNT 165 K/MM3 (134-434); RDW 14.4 % (11.9-15.9); WHITE BLOOD COUNT 4.2 K/mm3 (4.0-10.0)
[2019-08-31 10:38] LABS: ALBUMIN 2.8 g/dl (3.4-5.0); BILIRUBIN,TOTAL 0.3 mg/dL (0.2-1); BLOOD UREA NITROGEN 18.4 mg/dL (7-18); CALCIUM 8.5 mg/dL (8.5-10.1); CREATININE 0.9 mg/dL (0.55-1.3); POTASSIUM 3.7 mmol/L (3.5-5.1); TOT PROT 6.6 g/dl (6.4-8.2)
--- NOTE | 2019-08-31 11:07 | CONSULT ---
[facility] Psychiatric Consult - Data Date of interview: 08/31/19 Admission source: [facility] Identifying data: Data Designer approached patient at bedside for psychiatric interview. Mr Wood declines. Nursing staff is informed by
--- NOTE | 2019-08-31 11:41 | PN ---
S CIWA - CIWA Score Nausea/Vomitin-No Nausea/No Vomiting Muscle Tremors: 2 Anxiety: 0-No Anxiety, at Ease Agitation: 0-Normal Activity Paroxysmal Sweats: 3 Orientation: 0-Oriented Tacttile Disturbances: 0-None Auditory Disturbances: 0-None Visual Disturbances: 0-None Headache: 0-None Present CIWA-Ar Total Score: 5 BHS Progress Note (SOAP) Subjective: Pt had no complaints except slight tremors and sweats Objective: 08/31/19 11:37 Laboratory Tests 08/31/19 08/31/19 08/31/19 07:30 07:30 07:30 WBC 4.2 RBC 3.60 L Hgb 12.0 Hct 35.9 MCV 99.5 H MCH 33.3 MCHC 33.4 RDW 14.4 Plt Count 165 MPV 8.6 Sodium 145 Potassium 3.7 Chloride 110 H Carbon Dioxide 28 Anion Gap 8 BUN 18.4 H Creatinine 0.9 Est GFR (CKD-EPI)AfAm 101.36 Est GFR (CKD-EPI)NonAf 87.45 Random Glucose 132 H Calcium 8.5 Total Bilirubin 0.3 AST 123 H ALT 89 H Alkaline Phosphatase 111 Total Protein 6.6 Albumin 2.8 L RPR Titer Nonreactive Vital Signs Temperature 96.8 F L 08/31/19 08:31 Pulse Rate 88 08/31/19 08:31 Respiratory Rate 18 08/31/19 08:31 Blood Pressure 121/71 08/31/19 08:31 O2 Sat by Pulse Oximetry (%) Pt seen during rounds this morning. Alert and oriented x3, in no acute distress. Coordination: moving all extremities. Assessment: 08/31/19 11:40 Alcohol use disorder Plan: Alcohol use disorder: continue on Ativan protocol
[2019-08-31] MEDS: MELATONIN 5 MG TABLETS PO SCH (22:30)
[2019-08-31] MEDS: THIAMINE HCL 100 MG TABLET (FP) PO SCH (22:30)
[2019-09-01] MEDS: LORazepam 1 MG TABLET PO SCH ×4 (05:38→22:18)
[2019-09-01] MEDS: PRENATAL VITAMINS W/ FOLIC ACID TABLET (FP) PO SCH (10:20)
[2019-09-01] MEDS: NICOTINE 14 MG/24 HOURS TOPICAL PATCH TD SCH (10:21)
--- NOTE | 2019-09-01 11:38 | PN ---
S CIWA - CIWA Score Nausea/Vomitin-No Nausea/No Vomiting Muscle Tremors: None Anxiety: 2 Agitation: 0-Normal Activity Paroxysmal Sweats: 2 Orientation: 0-Oriented Tacttile Disturbances: 0-None Auditory Disturbances: 0-None Visual Disturbances: 0-None Headache: 2-Mild CIWA-Ar Total Score: 6 BHS Progress Note (SOAP) Subjective: Complains of anxiety, headache, and sweats. Objective: 09/01/19 11:36 Vital Signs Temperature 97.6 F 09/01/19 08:43 Pulse Rate 79 09/01/19 08:43 Respiratory Rate 18 09/01/19 08:43 Blood Pressure 136/83 09/01/19 08:43 O2 Sat by Pulse Oximetry (%) Laboratory Last Values WBC 4.2 K/mm3 (4.0-10.0) 08/31/19 07:30 RBC 3.60 M/mm3 (4.00-5.60) L 08/31/19 07:30 Hgb 12.0 GM/dL (11.7-16.9) 08/31/19 07:30 Hct 35.9 % (35.4-49) 08/31/19 07:30 MCV 99.5 fl (80-96) H 08/31/19 07:30 MCH 33.3 pg (25.7-33.7) 08/31/19 07:30 MCHC 33.4 g/dl (32.0-35.9) 08/31/19 07:30 RDW 14.4 % (11.9-15.9) 08/31/19 07:30 Plt Count 165 K/MM3 (134-434) 08/31/19 07:30 MPV 8.6 fl (7.5-11.1) 08/31/19 07:30 Sodium 145 mmol/L (136-145) 08/31/19 07:30 Potassium 3.7 mmol/L (3.5-5.1) 08/31/19 07:30 Chloride 110 mmol/L (98-107) H 08/31/19 07:30 Carbon Dioxide 28 mmol/L (21-32) 08/31/19 07:30 Anion Gap 8 MMOL/L (8-16) 08/31/19 07:30 BUN 18.4 mg/dL (7-18) H 08/31/19 07:30 Creatinine 0.9 mg/dL (0.55-1.3) 08/31/19 07:30 Est GFR (CKD-EPI)AfAm 101.36 08/31/19 07:30 Est GFR (CKD-EPI)NonAf 87.45 08/31/19 07:30 Random Glucose 132 mg/dL (74-106) H 08/31/19 07:30 Calcium 8.5 mg/dL (8.5-10.1) 08/31/19 07:30 Total Bilirubin 0.3 mg/dL (0.2-1) 08/31/19 07:30 AST 123 U/L (15-37) H 08/31/19 07:30 ALT 89 U/L (13-61) H 08/31/19 07:30 Alkaline Phosphatase 111 U/L (45-117) 08/31/19 07:30 Total Protein 6.6 g/dl (6.4-8.2) 08/31/19 07:30 Albumin 2.8 g/dl (3.4-5.0) L 08/31/19 07:30 RPR Titer Nonreactive (NONREACTIVE) 08/31/19 07:30 Labs reviewed. Assessment: 09/01/19 11:37 Pt is AO x3, in no acute respiratory distress. Withdrawal symptoms. Moving all extremities. Plan: Continue with detox protocol.
--- NOTE | 2019-09-01 15:52 | EKG ---
Test Reason : Blood Pressure : / mmHG Vent. Rate : 067 BPM Atrial Rate : 067 BPM P-R Int : 128 ms QRS Dur : 094 ms QT Int : 428 ms P-R-T Axes : 048 -02 020 degrees QTc Int : 452 ms NORMAL SINUS RHYTHM WITH SINUS ARRHYTHMIA POSSIBLE LEFT ATRIAL ENLARGEMENT SEPTAL INFARCT , AGE UNDETERMINED ABNORMAL ECG WHEN COMPARED WITH ECG OF 22-JUL-2018 19:59, SEPTAL INFARCT IS NOW PRESENT NONSPECIFIC T WAVE ABNORMALITY NO LONGER EVIDENT IN ANTEROLATERAL LEADS Confirmed by MD Philippe, Bashir ([id number]) on 09/01/2019 3:51:51 PM Referred By: Emeterio Ulloa Confirmed By:Bashir Paez MD
[2019-09-01] MEDS: THIAMINE HCL 100 MG TABLET (FP) PO SCH (22:16)
[2019-09-01] MEDS: MELATONIN 5 MG TABLETS PO SCH (22:17)
[2019-09-02] MEDS ORDERED: LORazepam 0.5 MG TABLET PO PRN
[2019-09-02] MEDS: LORazepam 0.5 MG TABLET PO SCH ×4 (06:00→22:35)
[2019-09-02] MEDS: PRENATAL VITAMINS W/ FOLIC ACID TABLET (FP) PO SCH (10:25)
[2019-09-02] MEDS: NICOTINE POLACRILEX 2 MG GUM BUC PRN (10:26)
[2019-09-02] MEDS: NICOTINE 14 MG/24 HOURS TOPICAL PATCH TD SCH (10:26)
[2019-09-02 12:08] LABS: EPI CELLS 7 /HPF (0-5/HPF); HYALINE CASTS 0 /lpf (0-8); PH,URINE 6.5 (5.0-8.0); URINE APPEARANCE CLEAR; URINE BACTERIA 63 /hpf (NEGATIVE); URINE BILIRUBIN NEGATIVE (NEGATIVE); URINE COLOR YELLOW; URINE GLUCOSE (UA) NEGATIVE (NEGATIVE); URINE KETONE NEGATIVE (NEGATIVE); URINE LEUK ESTERASE 1+ (NEGATIVE); URINE NITRITE NEGATIVE (NEGATIVE); URINE PROTEIN NEGATIVE (NEGATIVE); URINE RBC 5 /hpf (0-4); URINE UROBILINOGEN 0.2 mg/dL (0.2-1.0); URINE WBC 7 /hpf (0-5)
--- NOTE | 2019-09-02 12:17 | PN ---
[facility] CIWA - CIWA Score Nausea/Vomitin-No Nausea/No Vomiting Muscle Tremors: 1-None Visible, but [facility] Anxiety: 0-No Anxiety, at Ease Agitation: 0-Normal Activity Paroxysmal Sweats: 2 Orientation: 0-Oriented Tacttile Disturbances: 0-None Auditory Disturbances: 0-None Visual Disturbances: 0-None Headache: 0-None Present CIWA-Ar Total Score: 3 S Progress Note (SOAP) Subjective: 69 years old male admitted on 08/30/19 for alcohol withdrawal sx management treating with ativan detox regiment feeling better today less tremor encourage the patient to attend behavior and psychosocial therapies groups and meetings Objective: 09/02/19 12:18 Vital Signs Temperature 97.5 F L 09/02/19 08:47 Pulse Rate 85 09/02/19 08:47 Respiratory Rate 20 09/02/19 08:47 Blood Pressure 138/84 09/02/19 08:47 O2 Sat by Pulse Oximetry (%) Laboratory Last Values WBC 4.2 K/mm3 (4.0-10.0) 08/31/19 07:30 RBC 3.60 M/mm3 (4.00-5.60) L 08/31/19 07:30 Hgb 12.0 GM/dL (11.7-16.9) 08/31/19 07:30 Hct 35.9 % (35.4-49) 08/31/19 07:30 MCV 99.5 fl (80-96) H 08/31/19 07:30 MCH 33.3 pg (25.7-33.7) 08/31/19 07:30 MCHC 33.4 g/dl (32.0-35.9) 08/31/19 07:30 RDW 14.4 % (11.9-15.9) 08/31/19 07:30 Plt Count 165 K/MM3 (134-434) 08/31/19 07:30 MPV 8.6 fl (7.5-11.1) 08/31/19 07:30 Sodium 145 mmol/L (136-145) 08/31/19 07:30 Potassium 3.7 mmol/L (3.5-5.1) 08/31/19 07:30 Chloride 110 mmol/L (98-107) H 08/31/19 07:30 Carbon Dioxide 28 mmol/L (21-32) 08/31/19 07:30 Anion Gap 8 MMOL/L (8-16) 08/31/19 07:30 BUN 18.4 mg/dL (7-18) H 08/31/19 07:30 Creatinine 0.9 mg/dL (0.55-1.3) 08/31/19 07:30 Est GFR (CKD-EPI)AfAm 101.36 08/31/19 07:30 Est GFR (CKD-EPI)NonAf 87.45 08/31/19 07:30 Random Glucose 132 mg/dL (74-106) H 08/31/19 07:30 Calcium 8.5 mg/dL (8.5-10.1) 08/31/19 07:30 Total Bilirubin 0.3 mg/dL (0.2-1) 08/31/19 07:30 AST 123 U/L (15-37) H 08/31/19 07:30 ALT 89 U/L (13-61) H 08/31/19 07:30 Alkaline Phosphatase 111 U/L (45-117) 08/31/19 07:30 Total Protein 6.6 g/dl (6.4-8.2) 08/31/19 07:30 Albumin 2.8 g/dl (3.4-5.0) L 08/31/19 07:30 Urine Color Yellow 09/02/19 08:40 Urine Appearance Clear 09/02/19 08:40 Urine pH 6.5 (5.0-8.0) 09/02/19 08:40 Ur Specific [place] 1.012 (1.010-1.035) 09/02/19 08:40 Urine Protein Negative (NEGATIVE) 09/02/19 08:40 Urine Glucose (UA) Negative (NEGATIVE) 09/02/19 08:40 Urine Ketones Negative (NEGATIVE) 09/02/19 08:40 Urine Blood Negative (NEGATIVE) 09/02/19 08:40 Urine Nitrite Negative (NEGATIVE) 09/02/19 08:40 Urine Bilirubin Negative (NEGATIVE) 09/02/19 08:40 Urine Urobilinogen 0.2 mg/dL (0.2-1.0) 09/02/19 08:40 Ur Leukocyte Esterase 1+ (NEGATIVE) H 09/02/19 08:40 Urine WBC (Auto) 7 /hpf (0-5) 09/02/19 08:40 Urine RBC (Auto) 5 /hpf (0-4) 09/02/19 08:40 Urine Casts (Auto) 0 /lpf (0-8) 09/02/19 08:40 U Epithel Cells (Auto) 7 /HPF (0-5/HPF) 09/02/19 08:40 Urine Bacteria (Auto) 63 /hpf (NEGATIVE) 09/02/19 08:40 RPR Titer Nonreactive (NONREACTIVE) 08/31/19 07:30 lab noted ast elevation continue ativan regiment Assessment: 09/02/19 12:18 alcohol withdrawal Plan: ativan regiment
[2019-09-02] MEDS: THIAMINE HCL 100 MG TABLET (FP) PO SCH (22:34)
[2019-09-02] MEDS: MELATONIN 5 MG TABLETS PO SCH (22:34)
[2019-09-03] MEDS ORDERED: LORazepam 0.5 MG TABLET PO ONE (05:00)
[2019-09-03 09:25] VITALS: BP 129/78; PULSE 107; TEMP 97.8
[2019-09-03] MEDS: NICOTINE POLACRILEX 2 MG GUM BUC PRN (10:24)
[2019-09-03] MEDS: PRENATAL VITAMINS W/ FOLIC ACID TABLET (FP) PO SCH (10:24)
[2019-09-03] MEDS: NICOTINE 14 MG/24 HOURS TOPICAL PATCH TD SCH (10:24)
--- NOTE | 2019-09-03 13:21 | DS ---
[facility] Detox Discharge Summary Admission Date: 08/30/19 Discharge Date: 09/03/19 - History Present History: Alcohol Dependence Additional Comments: 69 years old male admitted on 08/30/19 for alcohol withdrawal sx management treated with ativan detox regiment Mr Wood has completed the ativan regiment and is tolerated well alert oriented x 3 respiratory clear lungs sound bilaterally on auscultation abdomen soft no rebound tenderness skin warm and dry Pertinent Past History: time for discharge 35 minutes - Physical Exam Results Vital Signs: Vital Signs Temperature 97.8 F 09/03/19 09:07 Pulse Rate 107 H 09/03/19 09:07 Respiratory Rate 16 09/03/19 09:07 Blood Pressure 129/78 09/03/19 09:07 O2 Sat by Pulse Oximetry (%) Pertinent Admission Physical Exam Findings: alcohol withdrawal - Treatment Hospital Course: Detox Protocol Followed, Detoxed Safely, Responded well, Discharged Condition Good, Rehab Referral Accepted Patient has Accepted a Rehab Referral to: [facility] - Medication Discharge Medications: Ambulatory Orders Amlodipine Besylate [Norvasc -] 5 mg PO DAILY #30 tablet 05/29/19 - Diagnosis (1) Alcohol dependence with uncomplicated withdrawal Status: Acute (2) Asthma Status: Chronic Qualifiers: Asthma severity: mild Asthma persistence: intermittent Asthma complication type: uncomplicated Qualified Code(s): J45.20 - Mild intermittent asthma, uncomplicated (3) Essential hypertension Status: Chronic (4) History of hepatitis C Status: Chronic (5) Nicotine dependence Status: Acute Qualifiers: Nicotine product type: cigarettes Substance use status: in withdrawal Qualified Code(s): F17.213 - Nicotine dependence, cigarettes, with withdrawal (6) PPD positive Status: Resolved (7) Substance induced mood disorder Status: Suspected - AMA Did Patient Leave Against Medical Advice: No CIWA Score - CIWA Score Nausea/Vomitin-No Nausea/No Vomiting Muscle Tremors: 1-None Visible, but [place] Anxiety: 0-No Anxiety, at Ease Agitation: 0-Normal Activity Paroxysmal Sweats: No Perspiration Orientation: 0-Oriented Tacttile Disturbances: 0-None Auditory Disturbances: 0-None Visual Disturbances: 0-None Headache: 0-None Present CIWA-Ar Total Score: 1
== END 2019-09-03 12:25 | disposition other institution (70) | DRG 897 ==
LOC: YASAS 18:15 → Y3N 21:01
PROVIDERS: ADMIT Allergy & Immunology; ATTEND Allergy & Immunology
PROC: HZ2ZZZZ Detoxification Services for Substance Abuse Treatment (ICD-10-PCS; principal; 2019-08-30)
DX: F10.230 Alcohol dependence with withdrawal, uncomplicated (principal); F19.282 Other psychoactive substance dependence with psychoactive substance-induced sleep disorder; F14.10 Cocaine abuse, uncomplicated; F17.210 Nicotine dependence, cigarettes, uncomplicated; F19.24 Other psychoactive substance dependence with psychoactive substance-induced mood disorder; F31.9 Bipolar disorder, unspecified; F20.9 Schizophrenia, unspecified; I10 Essential (primary) hypertension; J45.20 Mild intermittent asthma, uncomplicated; B18.2 Chronic viral hepatitis C; R76.11 Nonspecific reaction to tuberculin skin test without active tuberculosis; Z86.19 Personal history of other infectious and parasitic diseases; Z86.69 Personal history of other diseases of the nervous system and sense organs; Z96.641 Presence of right artificial hip joint; Z59.0 Homelessness
CPT/HCPCS: 36415; 80053; 81003; 85027; 86593; 93005; 93010; Q0162

== ENCOUNTER 2021-01-01 09:31 | Inpatient (IN) | payer OTHER ==
[2021-01-01] MEDS ORDERED: NICOTINE POLACRILEX 2 MG GUM BUC PRN (11:10)
[2021-01-01] MEDS ORDERED: METHOCARBAMOL 500 MG TABLET PO PRN (11:10)
[2021-01-01] MEDS ORDERED: MENTHOL/PHENOL 1 EACH UD MM PRN (11:10)
[2021-01-01] MEDS ORDERED: ONDANSETRON *ODT* 4 MG TABLET SL PRN (11:10)
[2021-01-01] MEDS ORDERED: MAGNESIUM HYDROX 2400MG/30ML ORAL SUSPENSION 30 ML CUP PO PRN (11:10)
[2021-01-01] MEDS ORDERED: ACETAMINOPHEN 325 MG TABLET (FP) PO PRN ×2 (11:10)
[2021-01-01] MEDS ORDERED: MAG HYDROX/AL HYDROX/SIMETH 30 ML UNIT-DOSE CUP PO PRN (11:10)
[2021-01-01] MEDS ORDERED: MAGNESIUM CITRATE 300 ML BOTTLE PO PRN (11:10)
[2021-01-01] MEDS ORDERED: IBUPROFEN 400 MG TABLET (FP) PO PRN (11:10)
[2021-01-01] MEDS ORDERED: BISMUTH SUBSALICYLATE 262 MG/15 ML BTL PO PRN (11:10)
[2021-01-01 11:11] VITALS: BMI 21.6
[2021-01-01] MEDS: hydrOXYzine PAMOATE 25 MG CAPSULE (FP) PO SCH ×3 (14:20→22:24)
[2021-01-01] MEDS: amLODIPine BESYLATE 10 MG TABLET (FP) PO SCH (14:20)
[2021-01-01] MEDS: PRENATAL VITAMINS W/ FOLIC ACID TABLET (FP) PO SCH (14:21)
[2021-01-01 17:08] LABS: HEMATOCRIT 39.5 % (35.4-49); HEMOGLOBIN 13.2 GM/dL (11.7-16.9); MCH 32.8 pg (25.7-33.7); MCHC 33.5 g/dl (32.0-35.9); MEAN PLT VOLUME 8.7 fl (7.5-11.1); PLATELET COUNT 129 10^3/uL (134-434); RBC 4.03 M/mm3 (4.00-5.60); RDW 16.1 % (11.9-15.9); WHITE BLOOD COUNT 5.6 K/mm3 (4.0-10.0)
[2021-01-01 17:13] LABS: CALCIUM 8.6 mg/dL (8.5-10.1)
[2021-01-01 17:14] LABS: ALBUMIN 3.4 g/dl (3.4-5.0); BLOOD UREA NITROGEN 20.2 mg/dL (7-18)
[2021-01-01 17:17] LABS: CREATININE 0.9 mg/dL (0.55-1.3)
[2021-01-01 17:19] LABS: BILIRUBIN,TOTAL 1.5 mg/dL (0.2-1); TOT PROT 8.4 g/dl (6.4-8.2)
[2021-01-01 18:03] LABS: HIV INTERPRETATION NEGATIVE (NEGATIVE)
[2021-01-01] MEDS ORDERED: MELATONIN 5 MG TABLETS PO SCH (22:00)
[2021-01-01] MEDS ORDERED: THIAMINE HCL 100 MG TABLET (FP) PO SCH (22:00)
[2021-01-01] MEDS: HYDROCORTISONE 1% TOPICAL CREAM 30 GM TUBE TP SCH (22:24)
[2021-01-02] MEDS: hydrOXYzine PAMOATE 25 MG CAPSULE (FP) PO SCH ×4 (06:00→17:40)
[2021-01-02] MEDS ORDERED: amLODIPine BESYLATE 5 MG TABLET (FP) PO SCH (10:00)
[2021-01-02] MEDS: PRENATAL VITAMINS W/ FOLIC ACID TABLET (FP) PO SCH (10:30)
[2021-01-02] MEDS: amLODIPine BESYLATE 10 MG TABLET (FP) PO SCH (10:31)
[2021-01-02] MEDS: HYDROCORTISONE 1% TOPICAL CREAM 30 GM TUBE TP SCH (10:31)
[2021-01-02] MEDS ORDERED: PNEUMOC 13-VAL CONJ-DIP CRM/PF 0.5 ML DISP.SYRIN IM ONE (12:00)
[2021-01-02 18:20] VITALS: BP 123/74; PULSE 74; TEMP 98.2
== END 2021-01-02 17:56 | disposition other institution (70) | DRG 897 ==
LOC: YASAS 09:31 → Y6N 12:20
PROVIDERS: ADMIT Allergy & Immunology; ATTEND Allergy & Immunology
PROC: HZ2ZZZZ Detoxification Services for Substance Abuse Treatment (ICD-10-PCS; principal; 2021-01-01)
DX: F10.230 Alcohol dependence with withdrawal, uncomplicated (principal); F14.20 Cocaine dependence, uncomplicated; F17.210 Nicotine dependence, cigarettes, uncomplicated; F10.282 Alcohol dependence with alcohol-induced sleep disorder; F10.280 Alcohol dependence with alcohol-induced anxiety disorder; F31.9 Bipolar disorder, unspecified; F25.9 Schizoaffective disorder, unspecified; F90.9 Attention-deficit hyperactivity disorder, unspecified type; I10 Essential (primary) hypertension; B18.2 Chronic viral hepatitis C; M06.9 Rheumatoid arthritis, unspecified; R76.11 Nonspecific reaction to tuberculin skin test without active tuberculosis; Z86.16 Personal history of COVID-19; Z86.69 Personal history of other diseases of the nervous system and sense organs; Z86.19 Personal history of other infectious and parasitic diseases; Z91.410 Personal history of adult physical and sexual abuse
CPT/HCPCS: 36415; 71045-TC-FY; 80053; 85027; 86780; 87389; 90670; C9803; U0003; U0005

== ENCOUNTER 2021-01-02 18:13 | Inpatient (IN) | payer OTHER ==
[2021-01-02] MEDS ORDERED: guaiFENesin 200 MG/10 ML 10 ML UNIT-DOSE CUPS PO PRN (19:13)
[2021-01-02] MEDS ORDERED: MAGNESIUM CITRATE 300 ML BOTTLE PO PRN (19:13)
[2021-01-02] MEDS ORDERED: NICOTINE POLACRILEX 2 MG GUM BC PRN (19:13)
[2021-01-02] MEDS ORDERED: LOPERAMIDE HCL 2 MG CAPSULE PO PRN (19:13)
[2021-01-02] MEDS ORDERED: P-EPHED 60MG/TRIPROLIDI 2.5MG TABLET PO PRN (19:13)
[2021-01-02] MEDS ORDERED: ACETAMINOPHEN 325 MG TABLET (FP) PO PRN (19:13)
[2021-01-02] MEDS ORDERED: IBUPROFEN 400 MG TABLET (FP) PO PRN (19:13)
[2021-01-02] MEDS ORDERED: MAGNESIUM HYDROX 2400MG/30ML ORAL SUSPENSION 30 ML CUP PO PRN (19:13)
[2021-01-02] MEDS: hydrOXYzine PAMOATE 25 MG CAPSULE (FP) PO SCH (21:08)
[2021-01-02] MEDS: MELATONIN 5 MG TABLETS PO SCH (21:08)
[2021-01-02] MEDS: THIAMINE HCL 100 MG TABLET (FP) PO SCH (21:08)
[2021-01-02] MEDS: MAG HYDROX/AL HYDROX/SIMETH 30 ML UNIT-DOSE CUP PO PRN (21:08)
[2021-01-03] MEDS: hydrOXYzine PAMOATE 25 MG CAPSULE (FP) PO SCH ×5 (06:17→21:05)
[2021-01-03 09:33] LABS: EPI CELLS 2 /uL (0-25.1); HYALINE CASTS 0 /uL (0-3.1); PH,URINE 8.5 (5.0-8.0); URINE APPEARANCE CLEAR; URINE BACTERIA 1 /uL (0-1359); URINE BILIRUBIN NEGATIVE (NEGATIVE); URINE COLOR YELLOW; URINE GLUCOSE (UA) NEGATIVE (NEGATIVE); URINE KETONE NEGATIVE (NEGATIVE); URINE LEUK ESTERASE TRACE (NEGATIVE); URINE NITRITE NEGATIVE (NEGATIVE); URINE PROTEIN NEGATIVE (NEGATIVE); URINE RBC 1 /uL (0-23.9); URINE WBC 2 /uL (0-25.8)
[2021-01-03] MEDS: amLODIPine BESYLATE 10 MG TABLET (FP) PO SCH (09:47)
[2021-01-03] MEDS: PRENATAL VITAMINS W/ FOLIC ACID TABLET (FP) PO SCH (09:47)
[2021-01-03] MEDS: NICOTINE 7 MG/24 HOURS TOPICAL PATCH TD SCH (09:48)
[2021-01-03] MEDS: THIAMINE HCL 100 MG TABLET (FP) PO SCH (21:05)
[2021-01-03] MEDS: MELATONIN 5 MG TABLETS PO SCH (21:06)
[2021-01-04] MEDS: hydrOXYzine PAMOATE 25 MG CAPSULE (FP) PO SCH ×5 (06:18→22:05)
[2021-01-04] MEDS: PRENATAL VITAMINS W/ FOLIC ACID TABLET (FP) PO SCH (09:27)
[2021-01-04] MEDS: amLODIPine BESYLATE 10 MG TABLET (FP) PO SCH (09:27)
[2021-01-04] MEDS: NICOTINE 7 MG/24 HOURS TOPICAL PATCH TD SCH (09:28)
[2021-01-04 11:47] LABS: HEMATOCRIT 36.6 % (35.4-49); HEMOGLOBIN 12.2 GM/dL (11.7-16.9); MCH 32.7 pg (25.7-33.7); MCHC 33.3 g/dl (32.0-35.9); MEAN CELL VOLUME 98.1 fl (80-96); MEAN PLT VOLUME 8.2 fl (7.5-11.1); PLATELET COUNT 134 10^3/uL (134-434); RBC 3.73 M/mm3 (4.00-5.60); RDW 16.2 % (11.9-15.9); WHITE BLOOD COUNT 5.2 K/mm3 (4.0-10.0)
[2021-01-04 12:08] LABS: CALCIUM 8.7 mg/dL (8.5-10.1)
[2021-01-04 12:09] LABS: BLOOD UREA NITROGEN 20.1 mg/dL (7-18)
[2021-01-04 12:12] LABS: CREATININE 0.9 mg/dL (0.55-1.3)
[2021-01-04 12:13] LABS: BILIRUBIN,TOTAL 1.1 mg/dL (0.2-1)
[2021-01-04 12:15] LABS: TOT PROT 7.7 g/dl (6.4-8.2)
[2021-01-04] MEDS: MELATONIN 5 MG TABLETS PO SCH (22:05)
[2021-01-04] MEDS: THIAMINE HCL 100 MG TABLET (FP) PO SCH (22:05)
[2021-01-05] MEDS: hydrOXYzine PAMOATE 25 MG CAPSULE (FP) PO SCH ×3 (06:30→13:37)
[2021-01-05] MEDS: amLODIPine BESYLATE 10 MG TABLET (FP) PO SCH (09:51)
[2021-01-05] MEDS: PRENATAL VITAMINS W/ FOLIC ACID TABLET (FP) PO SCH (09:51)
[2021-01-05] MEDS: NICOTINE 7 MG/24 HOURS TOPICAL PATCH TD SCH (09:52)
[2021-01-05] MEDS: MELATONIN 5 MG TABLETS PO SCH (21:52)
[2021-01-05] MEDS: THIAMINE HCL 100 MG TABLET (FP) PO SCH (21:52)
[2021-01-06] MEDS: NICOTINE 7 MG/24 HOURS TOPICAL PATCH TD SCH (09:50)
[2021-01-06] MEDS: amLODIPine BESYLATE 10 MG TABLET (FP) PO SCH (09:50)
[2021-01-06] MEDS: PRENATAL VITAMINS W/ FOLIC ACID TABLET (FP) PO SCH (09:50)
[2021-01-06] MEDS: THIAMINE HCL 100 MG TABLET (FP) PO SCH (22:14)
[2021-01-06] MEDS: MELATONIN 5 MG TABLETS PO SCH (22:14)
[2021-01-07] MEDS: PRENATAL VITAMINS W/ FOLIC ACID TABLET (FP) PO SCH (09:44)
[2021-01-07] MEDS: amLODIPine BESYLATE 10 MG TABLET (FP) PO SCH (09:44)
[2021-01-07] MEDS: NICOTINE 7 MG/24 HOURS TOPICAL PATCH TD SCH (09:44)
[2021-01-07] MEDS: THIAMINE HCL 100 MG TABLET (FP) PO SCH (22:13)
[2021-01-07] MEDS: MELATONIN 5 MG TABLETS PO SCH (22:13)
[2021-01-08] MEDS: amLODIPine BESYLATE 10 MG TABLET (FP) PO SCH (09:47)
[2021-01-08] MEDS: PRENATAL VITAMINS W/ FOLIC ACID TABLET (FP) PO SCH (09:47)
[2021-01-08] MEDS: NICOTINE 7 MG/24 HOURS TOPICAL PATCH TD SCH (09:47)
[2021-01-08] MEDS: MELATONIN 5 MG TABLETS PO SCH (21:34)
[2021-01-08] MEDS: THIAMINE HCL 100 MG TABLET (FP) PO SCH (21:34)
[2021-01-08] MEDS ORDERED: PT OWN MED DRAWER 7, Y5N ONE (21:38)
[2021-01-08] MEDS: hydrOXYzine PAMOATE 25 MG CAPSULE (FP) PO PRN (21:38)
[2021-01-09] MEDS: amLODIPine BESYLATE 10 MG TABLET (FP) PO SCH (09:55)
[2021-01-09] MEDS: NICOTINE 7 MG/24 HOURS TOPICAL PATCH TD SCH (09:55)
[2021-01-09] MEDS: PRENATAL VITAMINS W/ FOLIC ACID TABLET (FP) PO SCH (09:55)
[2021-01-09] MEDS: THIAMINE HCL 100 MG TABLET (FP) PO SCH (21:33)
[2021-01-09] MEDS: hydrOXYzine PAMOATE 25 MG CAPSULE (FP) PO PRN (21:33)
[2021-01-09] MEDS: MELATONIN 5 MG TABLETS PO SCH (21:33)
[2021-01-10] MEDS: NICOTINE 7 MG/24 HOURS TOPICAL PATCH TD SCH (09:38)
[2021-01-10] MEDS: amLODIPine BESYLATE 10 MG TABLET (FP) PO SCH (09:38)
[2021-01-10] MEDS: PRENATAL VITAMINS W/ FOLIC ACID TABLET (FP) PO SCH (09:38)
[2021-01-10] MEDS: THIAMINE HCL 100 MG TABLET (FP) PO SCH (21:54)
[2021-01-10] MEDS: MELATONIN 5 MG TABLETS PO SCH (21:54)
[2021-01-11] MEDS: amLODIPine BESYLATE 10 MG TABLET (FP) PO SCH (09:54)
[2021-01-11] MEDS: PRENATAL VITAMINS W/ FOLIC ACID TABLET (FP) PO SCH (09:54)
[2021-01-11] MEDS: NICOTINE 7 MG/24 HOURS TOPICAL PATCH TD SCH (09:54)
[2021-01-11] MEDS: MELATONIN 5 MG TABLETS PO SCH (21:38)
[2021-01-11] MEDS: THIAMINE HCL 100 MG TABLET (FP) PO SCH (21:38)
[2021-01-12] MEDS: amLODIPine BESYLATE 10 MG TABLET (FP) PO SCH (09:40)
[2021-01-12] MEDS: PRENATAL VITAMINS W/ FOLIC ACID TABLET (FP) PO SCH (09:40)
[2021-01-12] MEDS: NICOTINE 7 MG/24 HOURS TOPICAL PATCH TD SCH (09:40)
[2021-01-12] MEDS: MELATONIN 5 MG TABLETS PO SCH (22:04)
[2021-01-12] MEDS: THIAMINE HCL 100 MG TABLET (FP) PO SCH (22:04)
[2021-01-13] MEDS: amLODIPine BESYLATE 10 MG TABLET (FP) PO SCH (09:50)
[2021-01-13] MEDS: PRENATAL VITAMINS W/ FOLIC ACID TABLET (FP) PO SCH (09:50)
[2021-01-13] MEDS: NICOTINE 7 MG/24 HOURS TOPICAL PATCH TD SCH (09:51)
[2021-01-13] MEDS: THIAMINE HCL 100 MG TABLET (FP) PO SCH (21:50)
[2021-01-13] MEDS: MELATONIN 5 MG TABLETS PO SCH (21:50)
[2021-01-13] MEDS: MAG HYDROX/AL HYDROX/SIMETH 30 ML UNIT-DOSE CUP PO PRN (21:52)
[2021-01-14] MEDS: NICOTINE 7 MG/24 HOURS TOPICAL PATCH TD SCH (09:52)
[2021-01-14] MEDS: PRENATAL VITAMINS W/ FOLIC ACID TABLET (FP) PO SCH (09:52)
[2021-01-14] MEDS: amLODIPine BESYLATE 10 MG TABLET (FP) PO SCH (09:54)
[2021-01-14] MEDS: MELATONIN 5 MG TABLETS PO SCH (21:19)
[2021-01-14] MEDS: THIAMINE HCL 100 MG TABLET (FP) PO SCH (21:19)
[2021-01-15] MEDS: PRENATAL VITAMINS W/ FOLIC ACID TABLET (FP) PO SCH (09:44)
[2021-01-15] MEDS: amLODIPine BESYLATE 10 MG TABLET (FP) PO SCH (09:44)
[2021-01-15] MEDS: NICOTINE 7 MG/24 HOURS TOPICAL PATCH TD SCH (09:44)
[2021-01-15] MEDS: THIAMINE HCL 100 MG TABLET (FP) PO SCH (21:13)
[2021-01-15] MEDS: MELATONIN 5 MG TABLETS PO SCH (21:13)
[2021-01-15] MEDS: MAG HYDROX/AL HYDROX/SIMETH 30 ML UNIT-DOSE CUP PO PRN (21:13)
[2021-01-16] MEDS: NICOTINE 7 MG/24 HOURS TOPICAL PATCH TD SCH (09:35)
[2021-01-16] MEDS: PRENATAL VITAMINS W/ FOLIC ACID TABLET (FP) PO SCH (09:35)
[2021-01-16] MEDS: amLODIPine BESYLATE 10 MG TABLET (FP) PO SCH (09:35)
[2021-01-16] MEDS: MELATONIN 5 MG TABLETS PO SCH (21:42)
[2021-01-16] MEDS: THIAMINE HCL 100 MG TABLET (FP) PO SCH (21:42)
[2021-01-17] MEDS: amLODIPine BESYLATE 10 MG TABLET (FP) PO SCH (10:02)
[2021-01-17] MEDS: PRENATAL VITAMINS W/ FOLIC ACID TABLET (FP) PO SCH (10:02)
[2021-01-17] MEDS: NICOTINE 7 MG/24 HOURS TOPICAL PATCH TD SCH (10:02)
[2021-01-17] MEDS: MELATONIN 5 MG TABLETS PO SCH (21:38)
[2021-01-17] MEDS: THIAMINE HCL 100 MG TABLET (FP) PO SCH (21:38)
[2021-01-17] MEDS: hydrOXYzine PAMOATE 25 MG CAPSULE (FP) PO PRN (21:38)
[2021-01-17] MEDS: MAG HYDROX/AL HYDROX/SIMETH 30 ML UNIT-DOSE CUP PO PRN (21:52)
[2021-01-18] MEDS: amLODIPine BESYLATE 10 MG TABLET (FP) PO SCH (10:06)
[2021-01-18] MEDS: NICOTINE 7 MG/24 HOURS TOPICAL PATCH TD SCH (10:06)
[2021-01-18] MEDS: hydrOXYzine PAMOATE 25 MG CAPSULE (FP) PO PRN (10:06)
[2021-01-18] MEDS: PRENATAL VITAMINS W/ FOLIC ACID TABLET (FP) PO SCH (10:06)
[2021-01-18] MEDS: MELATONIN 5 MG TABLETS PO SCH (21:26)
[2021-01-18] MEDS: THIAMINE HCL 100 MG TABLET (FP) PO SCH (21:26)
[2021-01-19] MEDS: PRENATAL VITAMINS W/ FOLIC ACID TABLET (FP) PO SCH (10:00)
[2021-01-19] MEDS: NICOTINE 7 MG/24 HOURS TOPICAL PATCH TD SCH (10:00)
[2021-01-19] MEDS: amLODIPine BESYLATE 10 MG TABLET (FP) PO SCH ×2 (10:00→10:45)
[2021-01-19] MEDS: MELATONIN 5 MG TABLETS PO SCH (21:21)
[2021-01-19] MEDS: hydrOXYzine PAMOATE 25 MG CAPSULE (FP) PO PRN (21:21)
[2021-01-19] MEDS: THIAMINE HCL 100 MG TABLET (FP) PO SCH (21:21)
[2021-01-20] MEDS: PRENATAL VITAMINS W/ FOLIC ACID TABLET (FP) PO SCH (09:49)
[2021-01-20] MEDS: amLODIPine BESYLATE 10 MG TABLET (FP) PO SCH (09:49)
[2021-01-20] MEDS: NICOTINE 7 MG/24 HOURS TOPICAL PATCH TD SCH (09:49)
[2021-01-20] MEDS: THIAMINE HCL 100 MG TABLET (FP) PO SCH (21:18)
[2021-01-20] MEDS: MELATONIN 5 MG TABLETS PO SCH (21:18)
[2021-01-21] MEDS: PRENATAL VITAMINS W/ FOLIC ACID TABLET (FP) PO SCH (09:51)
[2021-01-21] MEDS: amLODIPine BESYLATE 10 MG TABLET (FP) PO SCH (09:51)
[2021-01-21] MEDS: NICOTINE 7 MG/24 HOURS TOPICAL PATCH TD SCH (09:51)
[2021-01-21] MEDS: THIAMINE HCL 100 MG TABLET (FP) PO SCH (21:16)
[2021-01-21] MEDS: MELATONIN 5 MG TABLETS PO SCH (21:16)
[2021-01-22] MEDS: amLODIPine BESYLATE 10 MG TABLET (FP) PO SCH ×2 (09:40→10:35)
[2021-01-22] MEDS: NICOTINE 7 MG/24 HOURS TOPICAL PATCH TD SCH (09:40)
[2021-01-22] MEDS: PRENATAL VITAMINS W/ FOLIC ACID TABLET (FP) PO SCH (09:40)
[2021-01-22] MEDS: MELATONIN 5 MG TABLETS PO SCH (21:47)
[2021-01-22] MEDS: THIAMINE HCL 100 MG TABLET (FP) PO SCH (21:47)
[2021-01-22] MEDS: hydrOXYzine PAMOATE 25 MG CAPSULE (FP) PO PRN (21:47)
[2021-01-23] MEDS: PRENATAL VITAMINS W/ FOLIC ACID TABLET (FP) PO SCH (09:42)
[2021-01-23] MEDS: NICOTINE 7 MG/24 HOURS TOPICAL PATCH TD SCH (09:42)
[2021-01-23] MEDS: amLODIPine BESYLATE 10 MG TABLET (FP) PO SCH (09:42)
[2021-01-23] MEDS: MELATONIN 5 MG TABLETS PO SCH (21:19)
[2021-01-23] MEDS: THIAMINE HCL 100 MG TABLET (FP) PO SCH (21:19)
[2021-01-24] MEDS: amLODIPine BESYLATE 10 MG TABLET (FP) PO SCH (09:50)
[2021-01-24] MEDS: PRENATAL VITAMINS W/ FOLIC ACID TABLET (FP) PO SCH (09:50)
[2021-01-24] MEDS: NICOTINE 7 MG/24 HOURS TOPICAL PATCH TD SCH (09:51)
[2021-01-24] MEDS: MELATONIN 5 MG TABLETS PO SCH (21:30)
[2021-01-24] MEDS: THIAMINE HCL 100 MG TABLET (FP) PO SCH (21:30)
[2021-01-25] MEDS: PRENATAL VITAMINS W/ FOLIC ACID TABLET (FP) PO SCH (10:02)
[2021-01-25] MEDS: amLODIPine BESYLATE 10 MG TABLET (FP) PO SCH (10:03)
[2021-01-25] MEDS: NICOTINE 7 MG/24 HOURS TOPICAL PATCH TD SCH (10:03)
[2021-01-25] MEDS: MELATONIN 5 MG TABLETS PO SCH (21:23)
[2021-01-25] MEDS: THIAMINE HCL 100 MG TABLET (FP) PO SCH (21:23)
[2021-01-26] MEDS: amLODIPine BESYLATE 10 MG TABLET (FP) PO SCH (09:42)
[2021-01-26] MEDS: PRENATAL VITAMINS W/ FOLIC ACID TABLET (FP) PO SCH (09:43)
[2021-01-26] MEDS: NICOTINE 7 MG/24 HOURS TOPICAL PATCH TD SCH (09:43)
[2021-01-26] MEDS: MELATONIN 5 MG TABLETS PO SCH (21:09)
[2021-01-26] MEDS: THIAMINE HCL 100 MG TABLET (FP) PO SCH (21:09)
[2021-01-27] MEDS: amLODIPine BESYLATE 10 MG TABLET (FP) PO SCH (09:39)
[2021-01-27] MEDS: NICOTINE 7 MG/24 HOURS TOPICAL PATCH TD SCH (09:39)
[2021-01-27] MEDS: PRENATAL VITAMINS W/ FOLIC ACID TABLET (FP) PO SCH (10:08)
[2021-01-27] MEDS: THIAMINE HCL 100 MG TABLET (FP) PO SCH (21:22)
[2021-01-27] MEDS: MELATONIN 5 MG TABLETS PO SCH (21:22)
[2021-01-28] MEDS: amLODIPine BESYLATE 10 MG TABLET (FP) PO SCH (09:27)
[2021-01-28] MEDS: PRENATAL VITAMINS W/ FOLIC ACID TABLET (FP) PO SCH (09:27)
[2021-01-28] MEDS: NICOTINE 7 MG/24 HOURS TOPICAL PATCH TD SCH (09:27)
[2021-01-28 11:01] LABS: CALCIUM 8.7 mg/dL (8.5-10.1)
[2021-01-28 11:02] LABS: ALBUMIN 3.1 g/dl (3.4-5.0); BLOOD UREA NITROGEN 20.3 mg/dL (7-18)
[2021-01-28 11:05] LABS: CREATININE 1.2 mg/dL (0.55-1.3)
[2021-01-28 11:06] LABS: TOT PROT 8.4 g/dl (6.4-8.2)
[2021-01-28 11:08] LABS: BILIRUBIN,TOTAL 0.7 mg/dL (0.2-1)
[2021-01-28] MEDS: THIAMINE HCL 100 MG TABLET (FP) PO SCH (21:10)
[2021-01-28] MEDS: MELATONIN 5 MG TABLETS PO SCH (21:10)
[2021-01-29] MEDS: amLODIPine BESYLATE 10 MG TABLET (FP) PO SCH (09:48)
[2021-01-29] MEDS: PRENATAL VITAMINS W/ FOLIC ACID TABLET (FP) PO SCH (09:48)
[2021-01-29] MEDS: NICOTINE 7 MG/24 HOURS TOPICAL PATCH TD SCH (09:49)
[2021-01-29] MEDS: THIAMINE HCL 100 MG TABLET (FP) PO SCH (21:52)
[2021-01-29] MEDS: MELATONIN 5 MG TABLETS PO SCH (21:52)
[2021-01-30 06:50] VITALS: BP 104/69; PULSE 100; TEMP 97
[2021-01-30] MEDS ORDERED: PT OWN MED DRAWER 7, Y5N ONE (08:44)
[2021-01-30] MEDS: PRENATAL VITAMINS W/ FOLIC ACID TABLET (FP) PO SCH (09:16)
[2021-01-30] MEDS: amLODIPine BESYLATE 10 MG TABLET (FP) PO SCH (09:16)
[2021-01-30] MEDS: NICOTINE 7 MG/24 HOURS TOPICAL PATCH TD SCH (09:16)
== END 2021-01-30 09:15 | disposition home or self-care (01) | DRG 895 ==
LOC: YASAS 18:13 → Y3E 18:15
PROVIDERS: ADMIT Allergy & Immunology; ATTEND Allergy & Immunology
PROC: HZ42ZZZ Group Counseling for Substance Abuse Treatment, Cognitive-Behavioral (ICD-10-PCS; principal; 2021-01-02)
DX: F10.20 Alcohol dependence, uncomplicated (principal); F14.20 Cocaine dependence, uncomplicated; F17.210 Nicotine dependence, cigarettes, uncomplicated; I10 Essential (primary) hypertension; M19.90 Unspecified osteoarthritis, unspecified site; Z86.16 Personal history of COVID-19; Z86.19 Personal history of other infectious and parasitic diseases; Z87.81 Personal history of (healed) traumatic fracture; Z59.0 Homelessness
CPT/HCPCS: 36415; 80053; 81003; 82962; 85027; 86780